=== PATIENT | male | born 1955 | race Asian ===

== ENCOUNTER 2018-07-23 19:35 | Inpatient (IN) | payer MEDICAID ==
[~2018-07-23] VITALS: Ht 165.1 cm; Wt 67.1 kg
[~2018-07-23 19:35] MED LIST: HEPARIN SODIUM,PORCINE/NS/PF 1,000 UNITS/500 ML BAG IV ONE; LR 1,000 ML IV.SOLN IV ONE; MIDAZOLAM HCL 5 MG/5 ML VIAL IVP ONE; NS 1000 ML IV.SOLN IV ONE; NS IRRIG SOLN 1000 ML IR ONE; PROPOFOL 200MG/ 20ML VIAL (DIPRIVAN) IV ONE; THROMBIN (BOVINE) 5000 UNITS/ VIAL TP ONE; VANCOMYCIN HCL 1000 MG/VIAL IV ONE
[2018-07-23 19:44] VITALS: BP_SYST 148
--- NOTE | 2018-07-23 20:01 | NUR ---
Patient to ER bed 01 to gown for evaluation. Side rails up. Report given to KASSY LOYD.
--- NOTE | 2018-07-23 20:35 | NUR ---
Patient is complaining of wound on L foot for 5 days. Patient went to primary doctor yesterday, abhijit. Primary doctor also prescribed tylenol for the pain. Patient says that pain is 9/10 walking and sitting. NKDA. Medical history of diabetes and hypertension. Patient also says that he has some shortness of breath. Patient denies, fever, diarrhea, vomitting. Denies smoking and drinking. No other complaints/injuries noted. Will continue to monitor.
--- NOTE | 2018-07-23 20:35 | NUR ---
Note undone in EDM - 07/24/18 at 0422 by [email or web address] Patient is complaining of diabetic ulcer on L foot for 5 days. Patient went to primary doctor yesterday, abhijit. Primary doctor also prescribed tylenol for the pain. Patient says that pain is 9/10 walking and sitting. NKDA. Medical history of diabetes and hypertension. Patient also says that he has some shortness of breath. Patient denies, fever, diarrhea, vomitting. Denies smoking and drinking. No other complaints/injuries noted. Will continue to monitor.
--- NOTE | 2018-07-23 21:02 | NUR ---
Accucheck done, results: 92.
[2018-07-23] MEDS ORDERED: NACL 0.9% 1,000 ML IV SCH (21:05)
--- NOTE | 2018-07-23 21:05 | NUR ---
ER MD Crocker at bedside for medical evaluation.
[2018-07-23] MEDS ORDERED: ONDANSETRON HCL 4 MG/2 ML VIAL IVP ONE (21:15)
[2018-07-23] MEDS ORDERED: CLINDAMYCIN 900 mg/50mL D5W 50 ML IV ONE (21:15)
[2018-07-23] MEDS ORDERED: MORPHINE 2 MG/ML INJ. SYRINGE IVP ONE (21:15)
--- NOTE | 2018-07-23 21:15 | NUR ---
Patient medicated with Morphine, zofran via IV push. Also, started on IV fluids an clindamycin per MD orders. Patient tolerated well. Will continue to monitor.
[2018-07-23 21:26] LABS: BILIRUBIN,URINE NEGATIVE (NEGATIVE); CLARITY/URINE CLEAR (CLEAR); COLOR,URINE YELLOW (YELLOW); GLUCOSE,URINE NEGATIVE (NEGATIVE); KETONES,URINE NEGATIVE (NEGATIVE); LEUKOCYTE ESTERASE ,URINE NEGATIVE (NEGATIVE); NITRITE, URINE NEGATIVE (NEGATIVE); PH,URINE 5.5 (5.0-8.0); PROTEIN URINE 1+ (NEGATIVE); UROBILINOGEN,URINE 0.2 (0.2-1.0)
[2018-07-23 21:27] LABS: BLOOD, URINE TRACE (NEGATIVE)
[2018-07-23 21:50] LABS: BASOPHILS % (AUTO) 0.3 % (0.0-2.0); EOSINOPHILS # (AUTO) 1.1 K/uL (0.0-0.4); EOSINOPHILS % (AUTO) 10.7 % (0.0-4.0); HEMATOCRIT 37.2 % (36-54); HEMOGLOBIN 11.9 g/dL (14.0-18.0); LYMPHOCYTES # (AUTO) 1.8 K/uL (1.0-5.5); LYMPHOCYTES % (AUTO) 17.1 % (20.5-51.5); MEAN CORPUSCULAR HEMOGLOBIN 26 pg (27-31); MEAN CORPUSCULAR HGB CONC 32 % (32-36); MEAN CORPUSCULAR VOLUME 82 fL (79.0-98.0); MONOCYTES # (AUTO) 0.7 K/uL (0.0-1.0); MONOCYTES % (AUTO) 6.5 % (1.7-9.3); NEUTROPHILS % (AUTO) 65.4 % (40.0-70.0); PLATELET COUNT (AUTO) 389 K/uL (130-430); RED BLOOD CELL COUNT(AUTO) 4.56 MIL/uL (4.2-6.2); RED CELL DISTRIBUTION WIDTH 11.9 % (9.0-15.0); WHITE BLOOD COUNT (AUTO) 10.6 K/uL (4.8-10.8)
[2018-07-23] MEDS ORDERED: CEPH-568 PO (21:55)
[2018-07-23] MEDS ORDERED: SIMV20TA2 PO (21:55)
[2018-07-23] MEDS ORDERED: HYDR12.55 PO (21:55)
[2018-07-23] MEDS ORDERED: GLIP10TA3 PO (21:55)
[2018-07-23] MEDS ORDERED: GLU850 PO (21:55)
[2018-07-23] MEDS ORDERED: LOSA100T3 PO (21:55)
--- NOTE | 2018-07-23 21:55 | NUR ---
Medication reconciliation completed with information provided by patient. Any prior medication reconciliation on file was reviewed and corrected.
[2018-07-23 21:56] LABS: BACTERIA,URINE RARE /HPF (None Seen); MUCUS,URINE None Seen /LPF (None Seen); WBC,URINE 0-3 /HPF (0-3); YEAST,URINE None Seen /HPF (None Seen)
[2018-07-23 22:16] LABS: CALCIUM 9.6 mg/dL (8.4-11.0); CREATININE 1.51 mg/dL (0.55-1.30); POTASSIUM 3.5 mmol/L (3.5-5.1)
[2018-07-23 22:22] LABS: ALBUMIN 3.6 g/dL (3.4-4.8); C-REACTIVE PROTEIN QUANT 0.7 mg/dL (0-0.5); TOTAL BILIRUBIN 0.3 mg/dL (0.0-1.0)
[2018-07-23 22:26] LABS: INR 0.9 (0.80-1.20); PROTHROMBIN TIME 9.1 SECS (9.5-12.5)
--- NOTE | 2018-07-23 22:30 | NUR ---
Patient resting in bed with daughter at bedside.
[2018-07-23 22:49] LABS: ERYTHROCYTE SEDIMENTATION RATE 75 MM/HR (0-15)
[2018-07-23] MEDS ORDERED: MORPHINE 2 MG/ML INJ. SYRINGE IVP PRN (23:00)
[2018-07-23] MEDS ORDERED: METOCLOPRAMIDE HCL 10 MG/2 ML VIAL IVP PRN (23:00)
[2018-07-23] MEDS ORDERED: TEMAZEPAM 15 MG CAPSULE PO PRN (23:00)
[2018-07-23] MEDS ORDERED: MORPHINE 4 MG/ML INJ. SYRINGE IVP PRN (23:00)
--- NOTE | 2018-07-23 23:10 | NUR ---
Patient will be admitted to care of Dr. Pruitt. Admitted to MED surg unit. Will go to room 110A. Belongings list completed. Summary report printed. Report will be given at bedside.
--- NOTE | 2018-07-23 23:19 | NUR ---
ADMISSION NOTE Received patient from ER via gurney. Patient admitted with diagnosis of Diabetic Foot. Patient is awake, alert, oriented X 4. Patient oriented to hospital room, call light, toileting, pain management and safety-teach back done. Patient informed that EVERT Olvera will be primary nurse and that their room number is 110A. Personal belongings checked and Belongings List documented. Call light within reach.
--- NOTE | 2018-07-23 23:19 | NUR ---
Note griselda in ED - 07/24/18 at 0440 by [email or web address] Transfer to [facility]. Licensed nurse present. IV present no signs or symptoms of infiltration. Report given to EVERT Olvera.
--- NOTE | 2018-07-23 23:19 | NUR ---
Transfer to Med surg. Licensed nurse present. IV present no signs or symptoms of infiltration. Report given to EVERT Olvera
[2018-07-23] MEDS ORDERED: VANCOMYCIN HCL 1 GM/NS PREMIX 250 ML IV ONE (23:30)
[2018-07-23 23:48] VITALS: BP_SYST 149
[2018-07-24] MEDS ORDERED: VANCOMYCIN HCL 1000 MG/VIAL IV ONE (00:22)
--- NOTE | 2018-07-24 01:00 | NUR ---
VANCOMYCIN 1 GM IVPB ADMINISTER ORDERED NO ALLERGIC REACTION NOTED .
--- NOTE | 2018-07-24 03:21 | NUR ---
PHOTO PICTURE TAKEN OF LEFT FOOT DIABETIC ULCER .
--- NOTE | 2018-07-24 03:22 | NUR ---
PHOTO PICTURE TAKEN OF RIGHT SECOND TOE DIABETIC ULCER & PUT IN MEDICAL RECORD .
--- NOTE | 2018-07-24 03:23 | NUR ---
PICTURE PHOTO TAKEN OF RIGHT MOREIRA DIABETIC ULCERS & PUT IN MEDICAL RECORD .
--- NOTE | 2018-07-24 03:46 | NUR ---
WOUND & DIETARY CONSULT HAS BEEN ORDERED D/T DM .
[2018-07-24 07:50] VITALS: BP_SYST 142
--- NOTE | 2018-07-24 07:50 | NUR ---
Initial notes: Patient on bed awake, alert and oriented. Stable. Safety measures in placed. Call light within reach. Report received at bedside.
[2018-07-24] MEDS ORDERED: VANCOMYCIN HCL 1,000 MG in NS 250 ML IV SCH (09:00)
[2018-07-24] MEDS ORDERED: PIPERACILLIN/TAZO 3.375/DEX-IS 50 ML IV SCH (10:00)
--- NOTE | 2018-07-24 10:01 | NUR ---
CONSULT CONSULT CALLED FOR: DR VICTORIA I SPOKE WITH: ROWENA REASON FOR CONSULT: DM FOOT REQUESTING CONSULT: DR. HOOKS LOADING MACHINE TOOL SETTER PHONE: [phone]
--- NOTE | 2018-07-24 10:31 | NUR ---
2DECHO: 2DECH at bedside.
[2018-07-24] MEDS ORDERED: ACETAMINOPHEN 325 MG TABLET PO PRN (10:45)
--- NOTE | 2018-07-24 10:46 | NUR ---
CONSULT CONSULT CALLED FOR: DR. MONSON I SPOKE WITH: KELLY REASON FOR CONSULT: DM FOOT REQUESTING CONSULT: DR. HOOKS NUCLEAR SCIENTIST PHONE: [phone]
--- NOTE | 2018-07-24 11:00 | NUR ---
Sara rounds: Seen by Dr. Grimm with new orders.
--- NOTE | 2018-07-24 11:43 | NUR ---
rounds: patient on bed resting. no distress noted.
[2018-07-24] MEDS: CEFEPIME 1 GM in D5W 50 ML IV SCH (11:54)
--- NOTE | 2018-07-24 11:56 | NUR ---
Dietitian Recommendations *Recommend [facility] diet w/ Glucerna BID and Donald BID. Oral supplement will provide: 600 kcal and 25 gm protein daily. *Encourage pt to increase oral intake. Please see Nutritional Assessment for details. BLANCA, RD
[2018-07-24 12:41] VITALS: BP_SYST 145
--- NOTE | 2018-07-24 14:00 | NUR ---
Sara rounds: Seen by Dr. Wahl and talk to the patient. He explained the debridement procedure on L foot and patient agreed to undergo procedure tomorrow.
[2018-07-24] MEDS ORDERED: ASPIRIN 81 MG TAB.CHEW PO ONE (14:15)
[2018-07-24] MEDS ORDERED: CILOSTAZOL 50 MG TABLET (PLETAL) PO ONE (14:15)
--- NOTE | 2018-07-24 15:47 | NUR ---
rounds: patient resting on bed. no distress noted.
[2018-07-24 16:45] VITALS: BP_SYST 140
--- NOTE | 2018-07-24 18:40 | NUR ---
closing notes: Patient resting on bed. Stable. Needs attended. Family at bedside. Aware he will be NPO at midnight for the surgery. Call light within reach. Safety measures in placed. Report will be given to night court magistrate.
--- NOTE | 2018-07-24 19:15 | NUR ---
CHANGE OF SHIFT: pt. awake, alert, oriented. pt. family at bedside. no complaints of pain. instructed to call for help and use of call light, communication board updated. IV lock on left antecubital.
--- NOTE | 2018-07-24 19:45 | NUR ---
PAGED I PAGED [phone] @ 1944 I SPOKE WITH SANDRA AZUL ROLON NEON SIGN MECHANIC AT THIS MOMENT DR. HEAD CALLED BACK @ 1946 LOST COMMUNICATION WITH HIM SO HE CALLED BACK AGAIN @ 1953
[2018-07-24 20:00] VITALS: BP_SYST 148
--- NOTE | 2018-07-24 20:05 | NUR ---
NOTES: paged Dr. Pruitt exchange, Dr. Sebastian senior controls engineer, informed him about the low BS this afternoon, will be NPO after midnight for the debridement, order IVF of D5 1/2 NS @ 7o cc./hr.
[2018-07-24] MEDS: CILOSTAZOL 50 MG TABLET (PLETAL) PO SCH (21:00)
[2018-07-24] MEDS: SIMVASTATIN 20 MG TABLET PO SCH (21:35)
[2018-07-24] MEDS: D5/0.45 NS 1,000 ML IV SCH (21:37)
--- NOTE | 2018-07-24 21:55 | NUR ---
NOTES; awakened for meds. IVF started with D 5 1/2 NS @ 70 cc/hr via left antecubital. repositioned self for comfort. reminded [pt. to be NPO after midnight for schedule debridement of left foot toe.
[2018-07-25] VITALS: BP_SYST 120
[2018-07-25] MEDS: VANCOMYCIN HCL 1,000 MG in NS 250 ML IV SCH (00:49)
--- NOTE | 2018-07-25 01:30 | NUR ---
NOTES; assisted by nurse Clayton to the restroom. reminded to be NPO.
--- NOTE | 2018-07-25 03:21 | NUR ---
NOTES: pt. been sleeping. condition unchanged. IVF infusing well.
--- NOTE | 2018-07-25 06:00 | NUR ---
NOTES: pt. still sleeping. no complaints.
--- NOTE | 2018-07-25 06:50 | NUR ---
CLOSING NOTES; BS checked 98, IV continuous, kept NPO. pre-op checklist initiated. no complaints noted. call light within reach. for further care and assistance.
--- NOTE | 2018-07-25 07:20 | NUR ---
Initial notes: Patient on bed awake, alert and oriented. Stable. I.V. access patent. Remains NPO for surgery. Safety measures in placed. call light within reach. Report received at bedside.
--- NOTE | 2018-07-25 07:25 | NUR ---
endorsed pt. to incoming shift with nurse Patel
--- NOTE | 2018-07-25 08:53 | NUR ---
Bone Scan: Patient sent to [facility] for bone scan.
[2018-07-25] MEDS: CILOSTAZOL 50 MG TABLET (PLETAL) PO SCH ×2 (09:00→20:25)
[2018-07-25] MEDS: ASPIRIN 81 MG TAB.CHEW PO SCH (09:00)
[2018-07-25] MEDS: LOSARTAN POTASSIUM 50 MG TABLET (COZAAR) PO SCH (10:07)
--- NOTE | 2018-07-25 10:09 | NUR ---
rounds: patient back in his room. resting. remains npo except for small sip for BP meds given. no distress noted.
[2018-07-25] MEDS: CEFEPIME 1 GM in D5W 50 ML IV SCH (11:35)
--- NOTE | 2018-07-25 11:39 | NUR ---
MHallie rounds: Dr. Grimm seen the patient. Mentioned of assisted antibiotic and possible need of PICC line.
[2018-07-25 12:46] VITALS: BP_SYST 148
--- NOTE | 2018-07-25 14:09 | NUR ---
transfer to O.R. for debridement on L foot.
[2018-07-25] MEDS ORDERED: ONDANSETRON HCL 4 MG/2 ML VIAL IVP PRN (15:00)
[2018-07-25] MEDS ORDERED: fentaNYL CITRATE/PF 100 MCG/2 ML AMP IVP PRN ×2 (15:00)
--- NOTE | 2018-07-25 15:35 | NUR ---
transfer back from PACU: patient back in his room. Stable. Dressing on L foot dry, clean and intact.
[2018-07-25 15:40] VITALS: BP_SYST 148
--- NOTE | 2018-07-25 16:09 | NUR ---
Conversation with Dr. Wahl: Informed about the order for CTA ABD lower ext runoff. Per Scot BUN and Creatinine are high. Dr. Wahl said to cancel it. Also, Diet as tolerated.
--- NOTE | 2018-07-25 16:15 | NUR ---
WOUND EVALUATION: Late note for 161 secondary to patient care. Wound Consult received from Dr. Pruitt. Thank you, Dr. Pruitt, for the consult. Patient received in a Darion Bed with an IsoFlex LEDA mattress, awake, alert, and oriented. Patient is able to turn in bed independently. Brock Score is a 19. Past Medical History: Diabetes Mellitus, Hypertension, Appendectomy. Patient was admitted with erythematous and edematous left foot. Recent Labs: WBC 10.6, RBC 4.56, hemoglobin 11.9, hematocrit 37.2, ESR 75, sodium 129, chloride 93, BUN 31, creatinine 1.51, GFR 50, POC glucose 113, alkaline phosphatase 137, Serum total protein 8.5, PT 9.1. Microbiology: MRSA screen results in progress. Blood culture results 2 in progress. Intrinsic factors that delay wound healing: Diabetes mellitus. Extrinsic factors that delay wound healing: Decreased mobility. Wound Assessment: Patient is status post excisional debridement (to the muscle) of left fifth lateral toe ulcer today by Dr. Wahl. Will assess foot on next visit pending orders. Recommend: Reinforce surgical dressing when necessary. Monitor surgical site for signs of infection or hemorrhaging. Nursing to follow-up with Dr. Wahl for wound care orders. Also recommend: Encourage and assist patient as needed with repositioning every 2 hours with pillow support and off-load pressure areas with pillows for pressure re-distribution. Offload, elevate and float bilateral heels with pillows. Perform skin care and monitor skin integrity Q shift.
--- NOTE | 2018-07-25 17:26 | NUR ---
rounds: patient resting on bed. no distress noted. family at bedside.
[2018-07-25] MEDS: D5/0.45 NS 1,000 ML IV SCH (18:02)
[2018-07-25 19:00] VITALS: BP_SYST 155
--- NOTE | 2018-07-25 19:15 | NUR ---
changer of shift.pt.presents stable status.pt.is s/p I&D;lt.foot.skin hue;pale;pink,pt.senses tactile stimulation.pt.capable to move toes.no pain@this time per.the pt.requested food.i will review the md's order's re;diet status.family@bedside;pt.to submit katie mra:in am;family attending to questionnaire;mra.iv fluids infusing.call light@pt.'s bedside.
--- NOTE | 2018-07-25 19:35 | NUR ---
Closing notes: Patient on bed resting. Stable. Needs attended. Dressing on foot dry and intact. No active bleeding. Safety measures in placed. Call light within reach. Report given to production shift supervisor, Tru LOYD.
[2018-07-25 20:00] VITALS: BP_SYST 155
--- NOTE | 2018-07-25 20:10 | NUR ---
pt.assessed.v/s assessed;values w/in normal limits.pt.presents s/p lt.foot diabetic ulcer;wound;I&D per . diet status changed to c/cho;i have proved the p.w/ food items.i have assessed the lt.foot;skin hue;pale;pink, tactile stimulation felt per the pt.pt.capable to move toes.i inquired if the pt.presents pain/numbness to the l lt.foot;pt.has stated no.pt.present general status stable.respiratory status stable@room air.pt.is to submit to mra;lt.carotid in the am;pt's dtr reviewing the questionnaire.iv fluids infusing via peripheral line;location; lt.antecubital;iv site;intact;absent inflammation/infiltration.i have provide the pt.w/the room telephone and provide the demonstration of the utilizing of the telephone.pt.returned the demonstration.call light/telephone placed w/in the pt's reach.
[2018-07-25] MEDS: SIMVASTATIN 20 MG TABLET PO SCH (20:25)
--- NOTE | 2018-07-25 20:30 | NUR ---
i have administered the 2100p medications.i have assessed the blood glucose;value;299mg/dl.i have administered regular insulin:6-units.the pt's dtr has completed the mra-questionnaire:i have witnessed the pt's signing.no additional requests@ this hour.
[2018-07-25] MEDS: INSULIN REGULAR, HUMAN 100 UNITS/ML, 10 ML VIAL (novoLIN R) SUBCUT PRN (20:32)
--- NOTE | 2018-07-25 21:10 | NUR ---
pt's dtr had conveyed to me that the pt.had presented 2 days constipation.no medications had been ordered i apprised the pt's drSolo that ;attending md is to be paged and apprise of the pt's status.
[2018-07-25] MEDS: MINERAL OIL 30 ML UDC PO SCH (21:33)
--- NOTE | 2018-07-25 21:35 | NUR ---
returned the page.i apprised of the pt's status;constipation. ordered:mineral oil;3oml po q-8hrs.i have administered the initial dose.the family had left the bedside.i inquired if the pt.presents pain pt.stated no. pt.did requests additional crackers i have provided the crackers;saltines.general status stable.respiratory status stable. iv fluids infusing.call light/telephone w/in the pt's reach.
--- NOTE | 2018-07-25 22:10 | NUR ---
pt.assessed.pt.assisted to the restroom.i have assisted the pt's return to the bed.no additional requests.@ this hour.general status stable.respiratory status stable.pt.capable to reposition self.call light/telephone w/in the pt's reach.
--- NOTE | 2018-07-26 00:10 | NUR ---
pt.assessed.v/s assessed;values w/in normal limits.i have inquired if the pt.presents pain.pt.stated no.i have assessed the lt.foot;skin hue;pale;pink.pt.sensed the tactile stimulation.pt.capable to move toes.pt.states no pain,numbness to the lt.foot. dsg ;dry/intact;no drainage. placed a call to the unit.cece has requested for the pt's diet status to be converted npo: to confer w/ the pt.in the am.
[2018-07-26 00:25] VITALS: BP_SYST 123
[2018-07-26] MEDS: VANCOMYCIN HCL 1,000 MG in NS 250 ML IV SCH ×2 (01:00→01:19)
[2018-07-26] MEDS: D5/0.45 NS 1,000 ML IV SCH ×2 (01:06→14:56)
--- NOTE | 2018-07-26 01:30 | NUR ---
pt.assisted to the restroom.i have assisted the pt's return to bed;gait unsteady walker provided . no c/o pain/nausea.i have administered the vancomycin;abx;ivpb 0100a dose.iv fluids
--- NOTE | 2018-07-26 02:10 | NUR ---
pt.assessed.pt.presents quiescent affect;calm,somnolent.i have assessed the lt.foot;skin hue;pale/pink.pt.sensed the tactile stimulation.pt.capable to move toes;pt.states no pain.iv fluids infusing.pt.capable, to reposition self. call light/telephone placed w/in the pt's reach.
--- NOTE | 2018-07-26 04:10 | NUR ---
pt.assessed.pt.presents quiescent affect;calm.somnolent.general status stable.respiratory status stable. iv fluids infusing.i have assessed the lt.foot.skin hue;pale;pink.tactile stimulation;warm to touch.pt.capable to move toes.no co pain/nausea.pt,.remains npo;reiterated to the pt.iv fluids infusing.pt.capable to reposition self. call light/telephone w/in the pt's reach.
--- NOTE | 2018-07-26 06:10 | NUR ---
pt.assessed.pt.presents quiescent affect;calm,somnolent.no c/o pain/nausea.i have assessed the blood glucose;100mg/dl. in have assessed the lt.foot;skin hue;pink;pale.pt.senses the tactile stimulation.pt.capable to move toes.iv fluids infusing.general status stable.respiratory status stable.call light/telephone w/in the pt's reach.
[2018-07-26 06:59] LABS: ALBUMIN 2.9 g/dL (3.4-4.8); CREATININE 1.28 mg/dL (0.55-1.30); TOTAL BILIRUBIN 0.5 mg/dL (0.0-1.0)
[2018-07-26 08:00] VITALS: BP_SYST 159
--- NOTE | 2018-07-26 08:00 | NUR ---
Opening Note received report from promos executive producer RN, pt resting in bed, A&Ox4, respirations even and unlabored on room air, pt denies any pain, no acute distress noted, IV site clean, dry, intact, and infusing well, surgical dressing to left foot clean, dry, and intact, pt educated on use of call light and asked to call for assistance, pt verbalized understanding, call light in reach, bed in low position, bed alarm on, fall and aspiration precautions in place.
--- NOTE | 2018-07-26 08:50 | NUR ---
MD Rounds Dr. Wahl at bedside examining pt, per MD hold all PO meds at this time, per MD no wound care to be provided at this time, dressing clean, dry, and intact, fall and aspiration precautions in place.
[2018-07-26] MEDS ORDERED: IOHEXOL 350 mgI/mL, 150 ML INFUS..BTL IV ONE (09:10)
--- NOTE | 2018-07-26 09:25 | NUR ---
to CT pt taken to CT via wheelchair, no acute distress noted.
--- NOTE | 2018-07-26 09:56 | NUR ---
Back From CT pt back from CT, pt resting in bed, no acute distress noted, fall and aspiration precautions in place.
[2018-07-26] MEDS: MINERAL OIL 30 ML UDC PO SCH (10:09)
[2018-07-26] MEDS: CILOSTAZOL 50 MG TABLET (PLETAL) PO SCH ×2 (10:09→20:14)
[2018-07-26] MEDS: ASPIRIN 81 MG TAB.CHEW PO SCH (10:10)
[2018-07-26] MEDS: LOSARTAN POTASSIUM 50 MG TABLET (COZAAR) PO SCH (10:10)
--- NOTE | 2018-07-26 10:13 | NUR ---
Medication per Dr. Sonal up to give morning medications at this time, pt educated on use and side effects of medications, pt verbalized understanding, tolerated medication administration well, no acute distress noted, fall and aspiration precautions in place.
[2018-07-26] MEDS: INSULIN REGULAR, HUMAN 100 UNITS/ML, 10 ML VIAL (novoLIN R) SUBCUT PRN ×2 (11:29→20:18)
--- NOTE | 2018-07-26 11:32 | NUR ---
Medication pt educated on medication use and side effects, pt verbalized understanding, pt tolerated medication administration well, no acute distress noted, fall and aspiration precautions in place.
[2018-07-26 12:14] VITALS: BP_SYST 156
--- NOTE | 2018-07-26 12:17 | NUR ---
D/C PLANNING Patient possibly to d/c this home this weekend with IV abx, and home health per Dr. Pruitt. CM called cm from [employer] ph: [phone] and requested a list of contracted home health agencies as well as contracted DME companies. Trsesa stated that she would fax a list of contracted home health agencies but that the [facility] deals with the DME. Tressa gave CM the contact number for [facility] ([facility]) as: [phone]. CM attempted to call this number, but it is not in service. Addendum: 07/26/18 at 1433 by Gabriela Hutchison RN Follow up on d/c planning CM rec'd contracted list from [employer]ressa at , but it was for SNF instead of Home health and was for the wrong patient. CM called [employer] back and left a voicemail asking her to fax a list of contracted home health companied to f: [phone]. Also stated that the phone number given earlier for [facility] was disconnected and asked if she could provide an updated number. Left CM contact info: [phone]. Addendum: 07/26/18 at 1524 by Gabriela Hutchison RN follow up to d/c planning CM rec'd updated fax from [employer]ressa at with list of contracted home health and SNFs. Pending d/c orders and abx order. Updated phone number for [facility]: [phone], they are responsible for the DME. CM will attempt to contact and obtain a list of contracted DME companies for weekend d/c planning.
--- NOTE | 2018-07-26 12:30 | NUR ---
Bathroom pt ambulated to bathroom, steady gait noted, minimal assistance required, pt ambulated back to bed, call light in reach, bed in low position, bed alarm on, fall and aspiration precautions in place.
[2018-07-26] MEDS: CEFEPIME 1 GM in D5W 50 ML IV SCH (12:48)
--- NOTE | 2018-07-26 12:49 | NUR ---
Medication pt educated on medication use and side effects, pt verbalized understanding, tolerating medication administration well, no redness or swelling noted at IV site, no acute distress noted, fall and aspiration precautions in place.
--- NOTE | 2018-07-26 14:59 | NUR ---
IV fluid pt educated on use and side effects of IV fluid administration, pt verbalized understanding, new bag of IV fluid hung at this time, pt tolerating well, no redness or swelling noted at IV site, no acute distress noted, fall and aspiration precautions in place.
[2018-07-26 16:20] VITALS: BP_SYST 158
--- NOTE | 2018-07-26 17:18 | NUR ---
Blood glucose blood glucose 142, no insulin indicated per sliding scale, pt resting in bed, no acute distress noted, fall and aspiration precautions in place.
--- NOTE | 2018-07-26 17:50 | NUR ---
Medication pt educated on medication use and side effects, pt verbalized understanding, tolerated medication administration well, no acute distress noted, pt spouse and daughter updated on pt POC, pt spouse and daughter verbalized understanding, fall and aspiration precautions in place.
--- NOTE | 2018-07-26 19:10 | NUR ---
Closing Note/Refuse bed alarm pt resting in bed, A&Ox4, respirations even and unlabored on room air, pt denies any pain, no acute distress noted, IV site clean, dry, intact, and infusing well, surgical dressing to left foot clean, dry, and intact, family at bedside, pt educated on use of call light and asked to call for assistance, pt verbalized understanding, call light in reach, pt educated on use of bed alarm for pt safety, pt refusing bed alarm at this time, bed in low position, fall and aspiration precautions in place, care endorsed to Rosalinda LOYD.
--- NOTE | 2018-07-26 19:10 | NUR ---
OPENING NOTE RECEIVED PT ENDORSEMENT REPORT FROM DAY SHIFT NURSE FIDENCIO AT BEDSIDE. PT IS AOX4, PT RESTING COMFORTABLY IN BED WITH EYES OPEN, FAMILY AT BEDSIDE. PT'S CHEST RISE EVEN AND UNLABORED. NO COMPLAINTS OF PAIN AT THIS TIME. NO DISTRESS NOTED. NO RESPIRATORY DISTRESS NOTED. PT IS ON RA. PT'S IV ON LEFT AC 22G, DRY, CLEAN AND INTACT. PT'S SURGICAL DRESSING ON LEFT FOOT, CLEAN AND INTACT. PT ORIENTED TO HOSPITAL ROOM, PT INSTRUCTED HOW TO USE CALL LIGHT AND ROOM PHONE, PT VERBALIZED UNDERSTANDING. PT AWARE TO CALL FOR ASSISTANCE WHEN AMBULATING. PT INSTRUCTED ON PT SAFETY, PT VERBALIZED UNDERSTANDING, PT CONTINUES TO REFUSE BED ALARM AT THIS TIME. SAFETY MEASURES IN PLACE, CALL LIGHT AND ROOM PHONE WITHIN REACH, BED BRAKES LOCKED, BED RAILS UP X2, BED IN LOWEST POSITION, BEDSIDE TABLE WITHIN REACH. NO NEEDS AT THIS TIME, WILL CONTINUE TO MONITOR PT AND CONTINUE POC.
[2018-07-26 20:12] VITALS: BP_SYST 140
[2018-07-26] MEDS: SIMVASTATIN 20 MG TABLET PO SCH (20:14)
--- NOTE | 2018-07-26 20:16 | NUR ---
RN ROUNDS PT RESTING COMFORTABLY IN BED WITH EYES OPEN, FAMILY AT BEDSIDE. PTS' CHEST RISE EVEN AND UNLABORED. NO COMPLAINTS OF PAIN AT THIS TIME. NO DISTRESS NOTED. NO RESPIRATORY DISTRESS NOTED. IVF INFUSING WELL. IV DRY, CLEAN AND INTACT. VITAL SIGNS WNL. SCHEDULED MEDICATIONS ADMINISTERED ORDERED. BS 192, 2 UN OF NOVOLIN R ADMINISTERED PER SLIDING SCALE PROTOCOL. NO OTHER NEEDS AT THIS TIME. PT REFUSES BED ALARM, PT AWARE OF SAFETY PRECAUTIONS. SAFETY MEASURES IN PLACE, CALL LIGHT AND ROOM PHONE WITHIN REACH, BED BRAKES LOCKED, BED RAILS UP X2, BED IN LOWEST POSITION, BEDSIDE TABLE WITHIN REACH. NO NEEDS AT THIS TIME, WILL CONTINUE TO MONITOR PT AND CONTINUE POC.
--- NOTE | 2018-07-26 22:30 | NUR ---
RN ROUNDS PT RESTING COMFORTABLY IN BED WITH EYES OPEN, FAMILY AT BEDSIDE. PT'S CHEST RISE EVEN AND UNLABORED. NO COMPLAINTS OF PAIN AT THIS TIME. NO DISTRESS NOTED. NO RESPIRATORY DISTRESS NOTED. NO NEEDS AT THIS TIME. SAFETY MEASURES IN PLACE. WILL CONTINUE TO MONITOR PT AND CONTINUE POC.
[2018-07-26 23:40] VITALS: BP_SYST 145
--- NOTE | 2018-07-27 | NUR ---
RN ROUNDS PT RESTING COMFORTABLY IN BED WITH EYES CLOSED. PT'S CHEST RISE EVEN AND UNLABORED. NO S/S OF PAIN NOTED. NO DISTRESS NOTED. NO RESPIRATORY DISTRESS NOTED. IVF INFUSING WELL. PT IS NPO AT THIS TIME. SAFETY MEASURES IN PLACE, CALL LIGHT AND ROOM PHONE WITHIN REACH, BED BRAKES LOCKED, BED RAILS UP X2, BED IN LOWEST POSITION, BEDSIDE TABLE WITHIN REACH. WILL CONTINUE TO MONITOR PT AND CONTINUE POC.
--- NOTE | 2018-07-27 02:46 | NUR ---
RN ROUNDS PT RESTING IN BED WITH EYES CLOSED. CHEST RISE EVEN AND UNLABORED. NO S/S OF DISTRESS. NO S/S OF PAIN. NO NEEDS AT THIS TIME. IVF INFUSING WELL. WILL CONTINUE TO MONITOR PT. SAFETY MEASURES IN PLACE.
[2018-07-27 03:02] VITALS: BP_SYST 148
--- NOTE | 2018-07-27 03:50 | NUR ---
VANCOMYCIN SPOKE TO DOMINIQUE FROM [facility] TO VERIFY TO GIVE VANCOMYCIN ORDERED, VANCOMYCIN TROUGH 12.2 THIS AM. ACCORDING TO DOMINIQUE TROUGH WITHIN RANGE AND CONTINUE SCHEDULED VANCOMYCIN ORDERED.
[2018-07-27] MEDS: VANCOMYCIN HCL 1,000 MG in NS 250 ML IV SCH (04:08)
--- NOTE | 2018-07-27 04:48 | NUR ---
RN ROUNDS PT RESTING COMFORTABLY IN BED WITH EYES CLOSED. PTS' CHEST RISE EVEN AND UNLABORED. IVF INFUSING WELL. SAFETY MEASURES IN PLACE. WILL CONTINUE TO MONITOR PT AND CONTINUE POC.
[2018-07-27] MEDS: D5/0.45 NS 1,000 ML IV SCH ×2 (06:07→23:30)
--- NOTE | 2018-07-27 06:31 | NUR ---
RN ROUNDS PT RESTING IN BED WITH EYES CLOSED. CHEST RISE EVEN AND UNLABORED. NO DISTRESS NOTED. NO SOB NOTED. NO S/S OF PAIN NOTED./ PT EASILY AWAKEN, PT DENIED PAIN AT THIS TIME. IVF INFUSING WELL. SCHEDULED FLUIDS ADMINISTERED SCHEDULED. PT TOLERATED WELL. BS 136, NO INSULIN COVERAGE NEEDED AT THIS TIME PER PROTOCOL. VITAL SIGNS STABLE THIS AM. CHG BATH COMPLETE. NO OTHER NEEDS AT THIS TIME. SAFETY MEASURES IN PLACE. WILL CONTINUE TO MONITOR PT.
[2018-07-27 06:42] VITALS: BP_SYST 151
--- NOTE | 2018-07-27 07:10 | NUR ---
INITIAL NOTE RECEIVED REPORT AND PATIENT FROM QUALITY MANAGEMENT COORDINATOR NURSE. PATIENT REMAINS AWAKE, ALERT, VERBALLY RESPONSIVE. DENIES ANY PAIN AT THIS TIME. VS STABLE. PATIENT REMAINS NPO DUE TO SURGERY. PATIENT IS CONTINENT BOWEL AND BLADDER, GOES TO THE RESTROOM, AMBULATORY WITH WALKER. REMIND PATIENT TO ASK FOR ASSISTANCE. PATIENT REFUSE SCD'S, EXPLAINED PURPOSE AND REASON. CALL LIGHT WITHIN REACH, WILL CONTINUE TO MONITOR.
--- NOTE | 2018-07-27 07:28 | NUR ---
CLOSING NOTE ENDORSED PT REPORT TO DAY SHIFT NURSE LEANDRA AT BEDSIDE. PT IS AOX4, PT RESTING COMFORTABLY IN BED WITH EYES OPEN. PTS' CHEST RISE EVEN AND UNLABORED. NO COMPLAINTS OF PAIN AT THIS TIME. NO DISTRESS NOTED. NO RESPIRATORY DISTRESS NOTED. PT IS ON RA. IV INFUSING WELL. ALL NEEDS MET THROUGHOUT SHIFT. ALL SCHEDULED MEDICATIONS ADMINISTERED ORDERED, PT TOLERATED WELL. INFORMED NURSE PT REFUSING BED ALARM, SAFETY EDUCATION PROVIDED TO PT, PT CONTINUES TO REFUSE BED ALARM. SAFETY MEASURES IN PLACE, CALL LIGHT AND ROOM PHONE WITHIN REACH, BED BRAKES LOCKED, BED RAILS UP X2, BED IN LOWEST POSITION, BEDSIDE TABLE WITHIN REACH. NO NEEDS AT THIS TIME. PT AWAITING TRANSFER TO OR.
[2018-07-27 08:00] VITALS: BP_SYST 140
--- NOTE | 2018-07-27 08:20 | NUR ---
PICKED UP FOR SURGERY PATIENT IS PICKED UP FOR SURGERY VIA BED BY RN WITH THE ASSISTANCE OF TECH. PATIENT REMAINS AWAKE, ALERT. VS STABLE, DENIES ANY PAIN AT THIS TIME. IV FLUIDS AND ANTIBIOTIC INFUSING VIA PUMP. REPORT GIVEN TO EVERT HAYNES
[2018-07-27] MEDS ORDERED: fentaNYL CITRATE/PF 100 MCG/2 ML AMP IVP PRN ×2 (09:00)
[2018-07-27] MEDS ORDERED: CILOSTAZOL 50 MG TABLET (PLETAL) PO SCH (09:00)
[2018-07-27] MEDS ORDERED: DIPHENHYDRAMINE INJ 50 MG/ML VIAL IVP PRN (09:00)
[2018-07-27] MEDS ORDERED: FENT2mCg/mL-ROPIVA0.2%/NS EPID 100 ML EP SCH (09:00)
[2018-07-27] MEDS ORDERED: ASPIRIN 81 MG TAB.CHEW PO ONE (09:00)
[2018-07-27] MEDS ORDERED: ONDANSETRON HCL 4 MG/2 ML VIAL IVP PRN ×2 (09:00)
[2018-07-27] MEDS: MINERAL OIL 30 ML UDC PO SCH (09:00)
[2018-07-27] MEDS ORDERED: NALBUPHINE HCL 10 MG/ML AMP IVP PRN (09:00)
[2018-07-27] MEDS ORDERED: NALOXONE HCL 0.4 MG/ML AMP (NARCAN) IVP PRN (09:00)
--- NOTE | 2018-07-27 12:25 | NUR ---
TRANSPORTED PATIENT BACK TO MED/SURG UNIT ASSISTED [place] LABOR UTILIZATION SUPERINTENDENT IN BRINGING THE PATIENT BACK TO THE FLOOR, REPORT RECEIVED. DEPUTY SHERIFF GENERALIST/BAILIFF INFUSING VIA PUMP AT 10ML/HR. SURGICAL INCISION ON THE LEFT FEMORAL AND LEFT INNER THIGH, COVERED WITH DRY DRESSING. PATIENT DENIES ANY PAIN AT THIS TIME. REMIND PATIENT ON HOW TO USE THE IS WITH RETURN DEMO.
[2018-07-27] MEDS: CILOSTAZOL 50 MG TABLET (PLETAL) PO SCH ×2 (12:44→21:17)
[2018-07-27] MEDS: ASPIRIN 81 MG TAB.CHEW PO SCH (12:44)
[2018-07-27] MEDS: CEFEPIME 1 GM in D5W 50 ML IV SCH (12:46)
[2018-07-27] MEDS: LOSARTAN POTASSIUM 50 MG TABLET (COZAAR) PO SCH (12:46)
--- NOTE | 2018-07-27 12:47 | NUR ---
Transfer of care: Report received from EVERT Ortiz.
[2018-07-27 12:48] VITALS: BP_SYST 110
--- NOTE | 2018-07-27 13:02 | NUR ---
Initial notes: Patient awake, alert and oriented. Stable. I.V. access patent. Came with BACK ORDER CLERK from OR. Surgical site at the L femoral dry, clean and intact. No bleeding. L food dressing clean, dry and intact. Safety measures in placed. Call light within reach.
--- NOTE | 2018-07-27 14:06 | NUR ---
rounds: patient resting on bed. No distress noted.
[2018-07-27] MEDS: ONDANSETRON HCL 4 MG/2 ML VIAL IVP PRN (16:14)
--- NOTE | 2018-07-27 16:17 | NUR ---
Vomit: Patient throw up of undigested food. Zofran given thru ivp. Cleaned and changed pt's gown and blanket.
--- NOTE | 2018-07-27 16:42 | NUR ---
Fever: Patient's temp 103.3. Applied ice pack. Tylenol given oral. Jos Zhang. Continue to monitor. Addendum: 07/27/18 at 1706 by Ebony Leone RN Dr. Zhang called back and informed him of the fever. No new order.
--- NOTE | 2018-07-27 17:20 | NUR ---
Nutrition F/U Admitting Diagnosis Diabetic foot Reviewed Pertinent Medical/Surgical Hx Medical Record Patient Medical History Comment: PMH: H/O DM, H/O HTN per MD notes. Pt found w/: Diabetic foot Infection LLE, possible Osteomyelitis per MD notes. Pt is s/p L femoral to popliteal bypass graft (bovine) and debridement of R foot 07/27/18. Subjective Information Pt seen resting in bed at time of RD visit. Pt was eating lunch. Pt reported no c/o chewing/swallowing. Pt reported BM last night. Pt had no nutrition-related questions/concerns. Pt is likely meeting optimal nutritional needs. Current Diet Order/Nutrition Support CCHO x1 day Patient/Significant Other Able To Verbalize Education Provided Indicated Pertinent Medications vancomycin, SSI, zofran Pertinent Labs Na 138 WNL (improved), POC BG 149 H, BUN 18 WNL (improved), CRE 1.28 WNL (improved), Hgb 11.9L, ALP 92 WNL (improved), ALB 2.9 L Height (Feet) 5 feet Height (Inches) 5.00 inches Weight (Pounds) 148 pounds (07/24/18) Weight (Calculated Kilograms) 67.516343 kilograms Patient Weight 67.132 kg Body Mass Index 24.63 kg/m2 %IBW 109 [place]/Adjusted Body Weight 136 lb, 62 kg Recent Weight Change No - per pt Weight Status Appropriate Gastrointestinal Symptoms None Last BM 07/27/18 Food Allergies No - per pt Usual Diet At Home regular diet, skips meals and medications per pt Skin Integrity Comment: Brock scale: 18; per [employer] note 07/25/18: Patient is status post excisional debridement (to the muscle) of left fifth lateral toe ulcer today by Dr. Wahl. Will assess foot on next visit pending orders. Current % PO 84% average x4 meals -- good Estimated Energy Expenditure (kcals/day) 4316-8153 kcal/day (30-35 kcal/kg CBW for wound healing) Estimated Protein Required (g/day) 80-101 gm/day (1.2-1.5 gm/kg CBW for wound healing) Estimated Fluid Required (l/day) 2-2.3 L/day (30-35 ml/kg CBW for wound healing) Problem/Etiology/Signs/Symptoms Increased nutritional needs related to metabolic demands as evidenced by wounds. *ongoing Inconsistent CHO intake related to behavioral factors as evidenced by non-compliance and pt's report of skipping meals/medication and fluctuating BG levels. *ongoing Expected Outcomes/Goals Monitor pt appetite and PO intake w/ goal of pt meeting at least 75% of estimated nutritional needs, labs trending WNL, normal GI function, skin integrity/wt maintenance. Dietitian Recommendations * Recommend CCHO diet w/ Glucerna BID and Donald BID (oral supplements will provide an additional 600 kcal/day and 25 gm protein/day) Follow Up Moderate Risk: F/U in 3-5 days
--- NOTE | 2018-07-27 17:26 | NUR ---
Dietitian Recommendations * Recommend [facility] diet w/ Glucerna BID and Donald BID (oral supplements will provide an additional 600 kcal/day and 25 gm protein/day) LP, RD Please refer to Nutrition F/U for details.
--- NOTE | 2018-07-27 18:37 | NUR ---
Closing notes: Patient on bed resting. Stable. Needs attended. On epidural Naropin with Fentanyl @ 10 ml/hr. at bedside. Safety measures in placed. Call light within reach. Report will be given to skilled laborer.
[2018-07-27 19:55] VITALS: BP_SYST 102
--- NOTE | 2018-07-27 19:55 | NUR ---
INITIAL NOTES: BEDSIDE REPORT RECEIVED FROM EVERT SPAULDING AT 1920. PATIENT IN BED WITH EYES CLOSE AWAKENS WHEN CALLED HIS NAME. IVF AT 70ML/HR AT LEFT AC.. FENTANYL /ROPOVICAINE VIA EPIDURAL INFUSING AT 10ML/HR. SITE AT LUMBAR AREA WITH DRY DRESSING AND INTACT. THREE DRESSINGS TO LEFT UPPER AND LOWER EXTREMITY INTACT,UPPER AND LOWER DRESSING DRY AND INTACT, MIDDLE DRESSING WITH LIGHT BLOOD STAIN. PEDAL PULSES PRESENT. MOVES TOES AND FOOT FREELY ON COMMAND SKIN WARM TO TOUCH.. RIGHT LEG MOVES FREELY /WITH PULSES. PATIENT ON ROOM AIR. TEMP 100.5 HR 105.MIN. DENIES POST OP PAIN. SINUS TACHYCARDIA. AT BEDSIDE. WILL MONITOR CLOSELY.
--- NOTE | 2018-07-27 20:05 | NUR ---
COOLING MEASURES INITIATED.
--- NOTE | 2018-07-27 20:35 | NUR ---
BED BATH DONE BY MARY RED. KEPT DRY AND COMFORTABLE.
[2018-07-27] MEDS: SIMVASTATIN 20 MG TABLET PO SCH (21:16)
--- NOTE | 2018-07-27 21:25 | NUR ---
MEDS ADMIN/NUTRITION: BLOOD SUGAR RESULT 152MG/DL. NO COVERAGE. HAD TURKEY SANDWICH FOR SNACK,SINCE DINNER WAS NOT GIVEN PER . TOLERATED WELL THEN TOOK HIS DUE MEDS AFTER.
--- NOTE | 2018-07-27 23:45 | NUR ---
ROUNDS: PATIENT RESTING WITH EYES CLOSE. BREATHING PATTERN REGULAR.
[2018-07-28 00:10] VITALS: BP_SYST 82
--- NOTE | 2018-07-28 00:10 | NUR ---
VITAL SIGNS TAKEN: BP 82/53 TEMP.99.3 RR 16 SAT 96%. TAKEN BT TIRE RETREADER. REPORTED TO ENTERPRISE RESOURCE PLANNER ,RECHECKED X3 STILL BP 86/54 /84/50/ 84/52 TEMP. 99.8 SLEEPING BUT AROUSABLE.
--- NOTE | 2018-07-28 00:25 | NUR ---
PAGED Himanshu WILEY.
--- NOTE | 2018-07-28 00:40 | NUR ---
BP RE CHECK: BP 86/54 HR 98/MIN /SAT 98% TEM 99.6.
--- NOTE | 2018-07-28 00:50 | NUR ---
RE PAGED Himanshu WILEY.
--- NOTE | 2018-07-28 00:57 | NUR ---
DR. GOMEZ CALLED BACK. REPORTED OF LOW BLOOD PRESSURE AND TEMP AT 1955 AT 100.5 AND CURRENT CONDITIONS WITH ORDERS WILL START SEPSIS PROTOCOL.
[2018-07-28] MEDS ORDERED: NACL 0.9% 1,000 ML IV ONE (01:00)
--- NOTE | 2018-07-28 01:10 | NUR ---
NORMAL SALINE 1 LITER TO RUN OVER 2 HRS INITIATED. BP WAS 78/49 . 500 ML NS RUN AT 950ML/HR.PATIENT SLEEPY ,EASILY AWAKENED.INFORMED CURRENT PLAN OF CARE. BLOOD CULTURE AND LACTIC ACID DRAWN BY LAB RESIDENTIAL REAL ESTATE ASSISTANT
--- NOTE | 2018-07-28 01:28 | NUR ---
BP 90//57 99/MIN SAT 100%.RR 16.
--- NOTE | 2018-07-28 01:45 | NUR ---
BP 93/55 99 97% .
--- NOTE | 2018-07-28 01:55 | NUR ---
BP AFTER 500ML NS INFUSED. 104 /59 HR 100 SAT 975 RA RR 17 . SKIN DIVING TEACHER AWARE. WILL INFUSE REMAINING NS OVER 1 HR.
[2018-07-28 02:40] VITALS: BP_SYST 103
--- NOTE | 2018-07-28 03:20 | NUR ---
VOMTING: THIRSTY. DRINKING WATER. FELT NAUSEATED ,VOMITTED 40ML YELLOWISH /GREENISH GASTRIC SECRETIONS. ABDOMEN DISTENDED. ZOFRAN 4MG IV GIVEN.
--- NOTE | 2018-07-28 03:30 | NUR ---
BP 126/77 HR 110 RR 20 SAT 98% TEMP 98.6.
[2018-07-28 03:41] LABS: BASOPHILS # (AUTO) 1.1 K/uL (0.0-0.2); EOSINOPHILS # (AUTO) 0.2 K/uL (0.0-0.4); HEMATOCRIT 28.1 % (36-54); HEMOGLOBIN 9.7 g/dL (14.0-18.0); LYMPHOCYTES # (AUTO) 1.4 K/uL (1.0-5.5); LYMPHOCYTES % (AUTO) 7.2 % (20.5-51.5); MEAN CORPUSCULAR HEMOGLOBIN 28 pg (27-31); MEAN CORPUSCULAR HGB CONC 35 % (32-36); MEAN CORPUSCULAR VOLUME 80 fL (79.0-98.0); MONOCYTES # (AUTO) 2.2 K/uL (0.0-1.0); MONOCYTES % (AUTO) 11.1 % (1.7-9.3); NEUTROPHILS # (AUTO) 14.6 K/uL (1.8-7.7); NEUTROPHILS % (AUTO) 75.3 % (40.0-70.0); PLATELET COUNT (AUTO) 242 K/uL (130-430); RED CELL DISTRIBUTION WIDTH 11.9 % (9.0-15.0); WHITE BLOOD COUNT (AUTO) 19.5 K/uL (4.8-10.8)
[2018-07-28] MEDS: ONDANSETRON HCL 4 MG/2 ML VIAL IVP PRN (03:50)
[2018-07-28] MEDS: VANCOMYCIN HCL 1,000 MG in NS 250 ML IV SCH (03:53)
--- NOTE | 2018-07-28 04:05 | NUR ---
EPIDURAL SITE CHECKED. DRY AND INTACT. DENIES PAIN. WOUND DRESSING TP LEFT FOOT CHANGED. WOUND CLEANSED WITH NS WITH HYDROGEL ,COVERED WITH OPTIFOAM.
[2018-07-28 04:13] LABS: CREATININE 3.78 mg/dL (0.55-1.30); POTASSIUM 4.6 mmol/L (3.5-5.1)
[2018-07-28] MEDS: FENT2mCg/mL-ROPIVA0.2%/NS EPID 200 ML EP SCH (06:14)
--- NOTE | 2018-07-28 06:20 | NUR ---
FENTANYL/NAROPIN BAG CHANGED CO SIGNED BY EVERT TOMLIN.
--- NOTE | 2018-07-28 07:00 | NUR ---
CLOSING: HOURLY ROUNDS DONE. ALL NEEDS WERE ATTENDED. 2ND LACTIC ACID 1.5. WBC 16.5. SINUS TACHYCARDIA. SAFETY MEASURES OBSERVED WHOLE SHIFT.FULL REPORT GIVEN TO AM RN FOR CONTINUITY OF CARE.CALL LIGHT NEAR BY. BED IN LOW POSITION.
[2018-07-28 07:44] VITALS: BP_SYST 113
--- NOTE | 2018-07-28 07:46 | NUR ---
Initial notes: Patient on bed awake,alert and oriented. Stable. Safety measures in placed. Call light within reach. Report received from maintenance supervisor 2nd shift, Lisandra LOYD.
[2018-07-28] MEDS: MINERAL OIL 30 ML UDC PO SCH (08:06)
[2018-07-28] MEDS: LOSARTAN POTASSIUM 50 MG TABLET (COZAAR) PO SCH (08:06)
[2018-07-28] MEDS: CILOSTAZOL 50 MG TABLET (PLETAL) PO SCH ×3 (08:08→20:14)
[2018-07-28] MEDS: ASPIRIN 81 MG TAB.CHEW PO SCH (08:08)
--- NOTE | 2018-07-28 09:00 | NUR ---
Sara rounds: Dr. Dudley seen the patient. Informed of BP. Decreased the naropin to 8cc/hr. Addendum: 07/28/18 at 1029 by Ebony Leone RN Called and informed Dr. Dudley patient only voided once per welder 2nd shift. Received new orders from Dr. Dudley.
[2018-07-28] MEDS ORDERED: NS 400 ML IV ONE (10:15)
--- NOTE | 2018-07-28 10:54 | NUR ---
Chinchilla Cath: Patient refused for chinchilla cath insertion. Did the bladder scan 735ml. Encouraged the patient and able to insert chinchilla cath. # 16 FR Chinchilla catheter with 10 cc bulb inserted with use of sterile technique. Bulb inflated with 10 cc sterile water. Immediate return of 600 cc yellow urine noted. Bedside drainage bag placed below level of bladder. Urine sample collected and sent to lab at 10:48. Pt tolerated procedure well. Addendum: 07/28/18 at 1206 by Ebony Leone RN immediate return was 400 instead of 600.
[2018-07-28 11:10] LABS: BILIRUBIN,URINE NEGATIVE (NEGATIVE); CLARITY/URINE CLEAR (CLEAR); COLOR,URINE YELLOW (YELLOW); GLUCOSE,URINE TRACE (NEGATIVE); KETONES,URINE NEGATIVE (NEGATIVE); LEUKOCYTE ESTERASE ,URINE NEGATIVE (NEGATIVE); NITRITE, URINE NEGATIVE (NEGATIVE); PH,URINE 5.5 (5.0-8.0); PROTEIN URINE 2+ (NEGATIVE); UROBILINOGEN,URINE 0.2 (0.2-1.0)
[2018-07-28 11:12] LABS: BLOOD, URINE TRACE (NEGATIVE)
[2018-07-28 11:19] LABS: WBC,URINE 0-3 /HPF (0-3)
[2018-07-28 11:20] LABS: BACTERIA,URINE FEW /HPF (None Seen); MUCUS,URINE 1+ /LPF (None Seen)
[2018-07-28 11:21] VITALS: BP_SYST 101
[2018-07-28] MEDS: INSULIN REGULAR, HUMAN 100 UNITS/ML, 10 ML VIAL (novoLIN R) SUBCUT PRN (11:39)
[2018-07-28] MEDS: CEFEPIME 1 GM in D5W 50 ML IV SCH (12:03)
--- NOTE | 2018-07-28 12:07 | NUR ---
rounds: patient sitting upright and eating breakfast. no distress noted.
[2018-07-28] MEDS ORDERED: FLUCONAZOLE 200 mg/ NS 100 ML IV ONE (12:30)
--- NOTE | 2018-07-28 12:53 | NUR ---
rounds: patient on bed resting. no distress noted.
[2018-07-28] MEDS ORDERED: NACL 0.9% 1,000 ML IV SCH ×2 (15:00→19:00)
[2018-07-28] MEDS ORDERED: MAG-AL HYDROX/SIMETH 30 ML UDC PO ONE (15:15)
[2018-07-28] MEDS ORDERED: PANTOPRAZOLE GRANULES PACKET 40 MG GT ONE (15:15)
[2018-07-28] MEDS ORDERED: MAG-AL HYDROX/SIMETH 30 ML UDC PO PRN (15:15)
[2018-07-28] MEDS ORDERED: BISACODYL 5 MG TABLET.DR (DULCOLAX) PO ONE (15:15)
--- NOTE | 2018-07-28 15:23 | NUR ---
Sara rounds: Dr. Zhang seen the patient with new orders. Addendum: 07/28/18 at 1842 by Ebony Leone RN Dr. Zhang aware urine having a blood. He ordered a consult for nephro.
[2018-07-28 15:24] VITALS: BP_SYST 108
[2018-07-28] MEDS ORDERED: PANTOPRAZOLE SODIUM 40 MG TAB PO ONE (15:30)
--- NOTE | 2018-07-28 15:30 | NUR ---
CONSULTATION PAGED/CALLED Reason for Consultation: RF Person Who was Notified: SPOKE WITH KEILY FROM DR. HEAD exchange [phone] Consulting Physician: Coil Inspector Specialty: NEPHRO Ordering Physician:
--- NOTE | 2018-07-28 17:08 | NUR ---
rounds: patient sleeping. no distress noted.
[2018-07-28] MEDS: BISACODYL 10 MG/SUPPOSITORY RC PRN (18:08)
--- NOTE | 2018-07-28 18:12 | NUR ---
Incentive spirometer: Patient able to do at 800level. Encourage to do it frequently.
[2018-07-28] MEDS: NACL 0.9% 1,000 ML IV SCH (18:26)
--- NOTE | 2018-07-28 18:46 | NUR ---
Closing notes: Patient on bed resting. Stable. Needs attended. On epidural Naropin with Fentanyl @ 8cc/hr. Safety measures in placed. Call light within reach. Report will be given to shift commander.
[2018-07-28 20:00] VITALS: BP_SYST 123
--- NOTE | 2018-07-28 20:00 | NUR ---
Initial Notes Received patient resting in bed, awake, alert, oriented. Patient denies any acute distress or pain at this time. Breathing is even and unlabored. Vital signs stable. Current IV site slightly swollen, new IV access obtained right forearm #22 by Agnes LOYD, aseptic tech used, good blood return noted, flushes with ease. Epidural infusing per MD orders, cath in place. Dressings noted to left leg and foot, clean/dry/intact. Needs addressed. Educated patient regarding use of call light for assistance and fall precautions, patient verbalized understanding. Call light in hand, fall precautions in place. Will continue to monitor.
[2018-07-28] MEDS: SIMVASTATIN 20 MG TABLET PO SCH (20:14)
--- NOTE | 2018-07-28 22:00 | NUR ---
Nursing Notes Patient resting in bed, awake. Patient denies any acute distress or pain at this time. Breathing is even and unlabored. IV site patent/clean/dry. Epidural infusing without incident. Newell draining to gravity. Needs addressed. Call light in hand, fall precautions in place. Will continue to monitor.
--- NOTE | 2018-07-28 23:00 | NUR ---
Rounds Dr. Sebastian on unit to see patient.
--- NOTE | 2018-07-29 | NUR ---
Nursing Notes Patient resting in bed with eyes closed, easily aroused. Patient denies any acute distress, pain, or needs at this time. Breathing is even and unlabored. IV and epidural site clean/dry/intact. Newell draining to gravity. Call light in hand, fall precautions in place. Will continue to monitor.
[2018-07-29] MEDS: VANCOMYCIN HCL 1,000 MG in NS 250 ML IV SCH (00:50)
[2018-07-29 01:30] VITALS: BP_SYST 110
--- NOTE | 2018-07-29 02:30 | NUR ---
Nursing Notes/Endorsement of Care Patient resting in bed with eyes closed, easily aroused. Patient denies any acute distress or pain at this time. Breathing is even and unlabored. IV site patent/clean/dry. Epidural infusing per MD orders. Newell draining to gravity. Needs addressed. Call light in hand, fall precautions in place. Endorsed care of patient to Tru LOYD.
--- NOTE | 2018-07-29 02:30 | NUR ---
i have assumed the care of the pt.for the remainder of the shift.adriana;rn has conveyed the pt's report/data. pt.presents diabetic ulcer lt.foot:s/p debredment:pt.presents lt.thigh:insertion site:fem/pop 07/27/18. pt.is currently receiving epidural:fentynal infusing @8ml/hr.i have assessed the lt.foot/leg;skin hue:pale: pt.has sensed the tactile stimulation pt.capable to move toes.pulse located;weak.call light/telephone placed w/in the pt's reach.
--- NOTE | 2018-07-29 03:30 | NUR ---
pt.presents nausea.i have administered zofran;4mg ivp.pt.had requested milk x2.i have provide the milk. no additional requests.
[2018-07-29] MEDS: ONDANSETRON HCL 4 MG/2 ML VIAL IVP PRN (03:31)
--- NOTE | 2018-07-29 04:04 | NUR ---
pt.assessed.i have assessed the lt.leg/foot.lt.foot hue;pale,touch warm,pt.sensed the tactile stimulation. pt.capable to move toes.pt.sates slight numbness,slight pain.pt.presents chinchilla catheter;patent:urine content present.iv fluids access;patent:iv fluids infusing.nausea has lessened.call light/telephone placed w/in the pt's reach.pt.repositioned.pt.presents iv access lt.antecubital:appearance;edematous, pt.requested the removal if the iv access.i have removed the iv access:2x2 dsg placed.call light/ telephone placed w/in the pt's reach.
[2018-07-29] MEDS: NACL 0.9% 1,000 ML IV SCH ×3 (05:41→16:44)
[2018-07-29] MEDS: FENT2mCg/mL-ROPIVA0.2%/NS EPID 200 ML EP SCH (06:08)
--- NOTE | 2018-07-29 06:15 | NUR ---
haydee;rn has assited in the changing of the epidural bag:witnessed:co-signed:[id number],noted. pt.has been reposition,cleansed.i have assessed the insertion site:epideral lone:intact:absent kinks, i have reinforced the epidural line.scd:applied to the rt.farmer.i have changed the iv fluids bag.no additional requests@this time.call light/telephone placed w/in the pt's reach.
[2018-07-29 07:05] LABS: BASOPHILS % (AUTO) 0.2 % (0.0-2.0); CALCIUM 7.7 mg/dL (8.4-11.0); CREATININE 4.61 mg/dL (0.55-1.30); EOSINOPHILS % (AUTO) 0.1 % (0.0-4.0); HEMATOCRIT 28.9 % (36-54); HEMOGLOBIN 9.7 g/dL (14.0-18.0); LYMPHOCYTES # (AUTO) 1.1 K/uL (1.0-5.5); LYMPHOCYTES % (AUTO) 6.1 % (20.5-51.5); MEAN CORPUSCULAR HEMOGLOBIN 27 pg (27-31); MEAN CORPUSCULAR HGB CONC 33 % (32-36); MEAN CORPUSCULAR VOLUME 81 fL (79.0-98.0); MONOCYTES # (AUTO) 1.3 K/uL (0.0-1.0); MONOCYTES % (AUTO) 7.5 % (1.7-9.3); NEUTROPHILS # (AUTO) 15.5 K/uL (1.8-7.7); NEUTROPHILS % (AUTO) 86.1 % (40.0-70.0); PLATELET COUNT (AUTO) 292 K/uL (130-430); POTASSIUM 4.9 mmol/L (3.5-5.1); RED BLOOD CELL COUNT(AUTO) 3.57 MIL/uL (4.2-6.2); RED CELL DISTRIBUTION WIDTH 12.3 % (9.0-15.0); WHITE BLOOD COUNT (AUTO) 17.9 K/uL (4.8-10.8)
--- NOTE | 2018-07-29 07:30 | NUR ---
Anesthesiologist Rounds: Seen by Dr. Dudley, per MD will continue epidural drip. Will re evaluate in the morning.
--- NOTE | 2018-07-29 07:55 | NUR ---
AM ROUNDS: Patient is awake, oriented x4. Denies pain, on Epidural drip with Naropin 0.2% at 8ml/hr via. Epidural catheter on the midback is intact, secured with tegaderm dressing. Insertion side is noted with old, small dried blood spot. Abdomen is distended, tender, board like but bowel sounds are present on all quadrants, denies abdominal pain. Patient had a bowel movement this morning. Iv fluids of Normal saline at 100 cc/hr infusing on the right forearm gauge 22. Newell catheter draining light brown urine output with sediments noted on the tubing. Right leg is cool to touch, with SCD for DVT prophylaxis. Left leg is tender, warm to touch with edema 1+. Dressing is noted on the left thigh and one below the left knee with spot of dried drainage. Patient is able to move all extremities. Encouraged to continue using the incentive spirometer, patient verbalized understanding. Call light within reach. Bed in lowest position, bed alarm is on.
[2018-07-29 08:19] VITALS: BP_SYST 149
[2018-07-29] MEDS: CILOSTAZOL 50 MG TABLET (PLETAL) PO SCH ×4 (09:00→20:13)
[2018-07-29] MEDS ORDERED: PANTOPRAZOLE GRANULES PACKET 40 MG GT SCH (09:00)
[2018-07-29] MEDS: ASPIRIN 81 MG TAB.CHEW PO SCH (09:06)
[2018-07-29] MEDS: PANTOPRAZOLE SODIUM 40 MG TAB PO SCH (09:06)
[2018-07-29] MEDS: MINERAL OIL 30 ML UDC PO SCH (09:06)
[2018-07-29] MEDS: INSULIN REGULAR, HUMAN 100 UNITS/ML, 10 ML VIAL (novoLIN R) SUBCUT PRN ×2 (11:36→20:09)
[2018-07-29] MEDS: CEFEPIME 1 GM in D5W 50 ML IV SCH (11:38)
--- NOTE | 2018-07-29 12:15 | NUR ---
WOUND EVALUATION: Late note for 12:15 secondary to patient care. Wound Consult received from Dr. Wahl. Thank you, Dr. Mittal, for the consult. Patient received in a [place] Bed with an IsoFlex LEDA mattress, awake, alert, and oriented x 4. Patient is able to turn in bed independently. Brock Score is a 17. Past Medical History: Diabetes Mellitus, Hypertension, Appendectomy. Patient was admitted with erythematous and edematous left foot. Recent Labs: WBC 17.9, RBC 3.57, hemoglobin 9.7, hematocrit 28.9, ESR 75, sodium 133, BUN 52, creatinine 4.61, GFR 14, glucose 152, calcium 7.7, PT 9.1. Microbiology: MRSA screen results negative. Blood culture results 2 negative. Surgical specimen culture results in progress. Blood culture results 2 in progress. Intrinsic factors that delay wound healing: Diabetes mellitus. Extrinsic factors that delay wound healing: Decreased mobility. Wound Assessment: 1. Left lateral fifth metatarsal head: Diabetic/neuropathic ulcer, present on admission. Site is status post excisional debridement (to the muscle) of left fifth lateral toe ulcer by Dr. Wahl on 07/25/18. Wound bed has 75% yellow tissue, 20% pink tissue, 5% purple discoloration underneath the skin. No odor, no drainage. Periwound and surrounding tissue has top superficial layer of skin missing secondary to debridement, and is pink and white in color. Wound measures 1.0 cm x 1.5 cm. Total area including surrounding tissue that was debrided measures 3.1 cm x 4.4 cm. Post debridement, graded Couch Classification Grade 1. Recommend: Cleanse wound with normal saline. Put moisture barrier cream onto periwound and surrounding tissue. Apply Venelex ointment onto wound bed. Cover with foam dressing. Perform wound care daily, and as needed for dressing soiling or dislodgment. Also recommend: Encourage and assist patient as needed with repositioning every 2 hours with pillow support and off-load pressure areas with pillows for pressure re-distribution. Offload, elevate and float bilateral heels with pillows. Perform skin care and monitor skin integrity Q shift.
--- NOTE | 2018-07-29 12:15 | NUR ---
Rounds: Patient is comfortable. Denies any pain. Wound on the left foot was checked by wound care nurse. Encouraged patient to continue using incentive spirometer. Continues on epidural drip with naropin 0.2% at 8ml/hr. Epidural catheter is intact and patent.
[2018-07-29 12:56] VITALS: BP_SYST 117
--- NOTE | 2018-07-29 13:16 | NUR ---
MD rounds: Informed Dr. Pruitt of the patient's distended and tender abdomen. MD has seen patient, no new orders.
--- NOTE | 2018-07-29 13:30 | NUR ---
WOUND CARE: LEFT FEMORAL, THIGH AND KNEE INCISION: NO drainage, no redness noted. Cleansed with normal saline, pat dried, covered with foam dressing. Doppler: Used doppler to auscultate left pedal pulse on the left foot.
--- NOTE | 2018-07-29 13:45 | NUR ---
Epidural drip: Catheter is removed by Dr. Dudley. Tip is present and intact. No bleeding noted on the site. Covered with band aid. Will monitor for leaking on the site.
[2018-07-29] MEDS: BALSAM PERU/CASTOR OIL 60 GM OINT...G. TP SCH (15:43)
--- NOTE | 2018-07-29 15:48 | NUR ---
wound care: Left foot: Cleansed wound with normal saline. Applied moisture barrier cream onto periwound and surrounding tissue. Applied Venelex ointment onto wound bed. Covered with foam dressing.
[2018-07-29 17:48] VITALS: BP_SYST 145
--- NOTE | 2018-07-29 18:20 | NUR ---
End of shift: Needs attended, no change in assessment. Seen by Dr. Sebastian, explained to the patient and spouse regarding today's lab results.
--- NOTE | 2018-07-29 19:20 | NUR ---
OPENING NOTE Received report from Katlyn. Patient resting in bed awake, alert, oriented x4. at the bedside. Breathing unlabored and even on room air. No signs of distress, no needs at this time. Fall and safety precautions in place. Bed in lowest position, brake on, alarm on, call light within reach. IVF infusing as ordered. SCD on right leg. Left left elevated. Newell catheter draining via gravity as ordered. Pillow support in place. Will continue to monitor.
[2018-07-29 20:00] VITALS: BP_SYST 132
[2018-07-29] MEDS: BISACODYL 10 MG/SUPPOSITORY RC PRN (20:10)
[2018-07-29] MEDS: SIMVASTATIN 20 MG TABLET PO SCH (20:10)
--- NOTE | 2018-07-29 20:18 | NUR ---
Med pass. Blood sugar 151. Administered 2 units of regular insulin PRN SQ as ordered per insulin sliding scale. Patient requested suppository. Administered per order. D/C tele.
--- NOTE | 2018-07-29 22:33 | NUR ---
Patient requested blanket. Provided one.
--- NOTE | 2018-07-29 23:37 | NUR ---
D/c chinchilla catheter due to epidural being d/c. 600cc urine output recorded.
[2018-07-30 00:10] VITALS: BP_SYST 118
--- NOTE | 2018-07-30 02:13 | NUR ---
Pt c/o not being able to urinate since chinchilla was d/c. Bladder scan showed 865cc of urine. Will get patient up and moving to the BSC. Bladder is distended and firm to the touch. Denies any pain at this time.
[2018-07-30] MEDS: NACL 0.9% 1,000 ML IV SCH ×3 (03:41→14:26)
--- NOTE | 2018-07-30 03:42 | NUR ---
New IVF hung
--- NOTE | 2018-07-30 03:45 | NUR ---
Pt urinated 325cc in the urinal. Clear, yellow urine noted.
[2018-07-30] MEDS: INSULIN REGULAR, HUMAN 100 UNITS/ML, 10 ML VIAL (novoLIN R) SUBCUT PRN ×2 (06:05→20:38)
--- NOTE | 2018-07-30 06:06 | NUR ---
Blood sugar 103. No insulin coverage needed per PRN sliding scale.
[2018-07-30 06:54] LABS: BASOPHILS % (AUTO) 0.2 % (0.0-2.0); EOSINOPHILS % (AUTO) 0.3 % (0.0-4.0); HEMATOCRIT 26.9 % (36-54); HEMOGLOBIN 8.9 g/dL (14.0-18.0); LYMPHOCYTES # (AUTO) 0.9 K/uL (1.0-5.5); LYMPHOCYTES % (AUTO) 6.8 % (20.5-51.5); MEAN CORPUSCULAR HEMOGLOBIN 28 pg (27-31); MEAN CORPUSCULAR HGB CONC 33 % (32-36); MEAN CORPUSCULAR VOLUME 82 fL (79.0-98.0); MONOCYTES # (AUTO) 1.1 K/uL (0.0-1.0); MONOCYTES % (AUTO) 8.1 % (1.7-9.3); NEUTROPHILS # (AUTO) 11.6 K/uL (1.8-7.7); NEUTROPHILS % (AUTO) 84.6 % (40.0-70.0); PLATELET COUNT (AUTO) 276 K/uL (130-430); RED BLOOD CELL COUNT(AUTO) 3.26 MIL/uL (4.2-6.2); RED CELL DISTRIBUTION WIDTH 11.9 % (9.0-15.0); WHITE BLOOD COUNT (AUTO) 13.6 K/uL (4.8-10.8)
[2018-07-30 06:57] LABS: ALBUMIN 2.3 g/dL (3.4-4.8); CALCIUM 7.8 mg/dL (8.4-11.0); CREATININE 3.06 mg/dL (0.55-1.30); POTASSIUM 4.4 mmol/L (3.5-5.1); TOTAL BILIRUBIN 0.3 mg/dL (0.0-1.0)
--- NOTE | 2018-07-30 07:34 | NUR ---
CLOSING NOTE Patient resting in bed awake, alert, oriented x4. Fall and safety precautions in place. Bed in lowest position, brake on, alarm on, call light within reach. IVF infusing as ordered. SCD on right leg. Left left elevated. Pillow support in place. Endorsed care to day shift nurse.
[2018-07-30 07:43] VITALS: BP_SYST 144
--- NOTE | 2018-07-30 07:45 | NUR ---
AM ROUNDS: Patient is awake, oriented x4. Denies pain, only tightness on the upper abdomen. Abdomen is distended, tender, bowel sounds are present on all quadrants. Patient had a bowel movement last night 07/29/18. IV fluids of Normal saline at 100 cc/hr infusing on the right forearm gauge 22. Bladder scan done with 445 urine in the bladder. Right leg is cool to touch, with SCD for DVT prophylaxis. Left leg is tender, warm to touch with edema 2+ with tight skin. Patient is able to move all extremities but with weakness on the left leg. Encouraged to continue using the incentive spirometer, patient verbalized understanding. Repositioned patient with head slight elevated. Folded wash cloths used to support the scrotum. Call light within reach. Bed in lowest position, bed alarm is on.
[2018-07-30] MEDS: CILOSTAZOL 50 MG TABLET (PLETAL) PO SCH ×2 (09:00→20:36)
[2018-07-30] MEDS: MINERAL OIL 30 ML UDC PO SCH (09:32)
[2018-07-30] MEDS: ASPIRIN 81 MG TAB.CHEW PO SCH (09:32)
[2018-07-30] MEDS: PANTOPRAZOLE SODIUM 40 MG TAB PO SCH (09:32)
[2018-07-30] MEDS: BALSAM PERU/CASTOR OIL 60 GM OINT...G. TP SCH (10:23)
--- NOTE | 2018-07-30 11:00 | NUR ---
DC Planning: s/w pt and his dtr in law/[facility] re snf placement. The pt is agreeable with snf placement for contination of IV ABX, wound care and PT. CM provided the snf of choice per [facility] contracted list, [facility] and pt. requested #[facility], #2 [facility] and [facility]3 [facility]. CM faxed referral inquiry to [facility] and [facility] -- CM to f/u.
--- NOTE | 2018-07-30 11:06 | NUR ---
MD NOTIFICATION Informed Dr. Sebastian regarding swollen scrotum. STAT Order made for Ultrasound of the scrotum. Will continue to monitor patient.
[2018-07-30 11:08] VITALS: BP_SYST 119
[2018-07-30] MEDS: CEFEPIME 1 GM in D5W 50 ML IV SCH (11:31)
--- NOTE | 2018-07-30 11:58 | NUR ---
WOUND CARE LEFT FEMORAL, THIGH AND KNEE INCISION: No drainage nor redness noted. Cleansed wound with normal saline, pat dried and covered with foam dressing, signed, timed and dated. LEFT FOOT: Cleansed wound with normal saline. Applied moisture barrier cream onto periwound and surrounding tissue. Applied Venelex ointment onto wound bed. Covered with foam dressing, signed, timed and dated. DOPPLER: Used doppler to auscultate left pedal pulse on the left foot.
--- NOTE | 2018-07-30 14:10 | NUR ---
Rounds: Patient is ambulating in the hallway with Physical Therapy.
--- NOTE | 2018-07-30 14:32 | NUR ---
DC Planning: Faxed referral inquiry to [facility] attn to [facility] and received call back stated that "unable to accept the pt. dt [facility] is not contracted with [facility] . Addendum: 07/30/18 at 1454 by Ruiz Umanzor RN >> [facility]: CM requested [facility] to call Tressa at [facility] to verify payor which per LISA Bustillos is at risk (not [employer] [facility]) to give auth and is the payor to snf. -- CM to f/u. Addendum: 07/30/18 at 1500 by Ruiz Umanzor RN >> [facility] : [facility] is waiting for admission to call back. All admitting staff is in meeting per gunnar Lopez. , fax# [phone].
[2018-07-30 15:17] VITALS: BP_SYST 157
--- NOTE | 2018-07-30 18:17 | NUR ---
END OF SHIFT: Needs attended, no change in assessment. Call light within reach.
--- NOTE | 2018-07-30 19:45 | NUR ---
OPENING NOTE Received report from Jose Alberto. Patient resting in bed awake, alert, oriented x4. Breathing unlabored and even on room air. No signs of distress, no needs at this time. Fall and safety precautions in place. Bed in lowest position, brake on, alarm on, call light within reach. IVF infusing as ordered. Will continue to monitor.
[2018-07-30] MEDS: SIMVASTATIN 20 MG TABLET PO SCH (20:35)
[2018-07-30 20:39] VITALS: BP_SYST 155
--- NOTE | 2018-07-30 20:40 | NUR ---
Med pass. Blood sugar 114. No insulin coverage needed per PRN insulin sliding scale.
--- NOTE | 2018-07-30 22:57 | NUR ---
Patient resting in bed awake, alert, oriented x4. Breathing unlabored and even on room air. No signs of distress, no needs at this time. Fall and safety precautions in place. Bed in lowest position, brake on, alarm on, call light within reach. IVF infusing as ordered. Will continue to monitor.
[2018-07-31] MEDS: NACL 0.9% 1,000 ML IV SCH ×2 (00:11→06:13)
--- NOTE | 2018-07-31 00:13 | NUR ---
New IVF hung. IV abx hung.
[2018-07-31] MEDS ORDERED: VANCOMYCIN HCL 1,000 MG in NS 250 ML IV SCH (01:00)
--- NOTE | 2018-07-31 04:29 | NUR ---
Patient resting in bed with eye closed. Breathing unlabored and even on room air. No signs of distress, no needs at this time. Fall and safety precautions in place. Bed in lowest position, brake on, alarm on, call light within reach. IVF infusing as ordered. Will continue to monitor.
[2018-07-31] MEDS: INSULIN REGULAR, HUMAN 100 UNITS/ML, 10 ML VIAL (novoLIN R) SUBCUT PRN ×2 (06:12→11:31)
--- NOTE | 2018-07-31 06:20 | NUR ---
Blood sugar 129. No insulin coverage needed.
--- NOTE | 2018-07-31 07:37 | NUR ---
CLOSING NOTE Gave report to Naomi. Patient resting in bed awake, alert, oriented x4. Breathing unlabored and even on room air. No signs of distress, no needs at this time. Fall and safety precautions in place throughout shift. Bed in lowest position, brake on, alarm on, call light within reach. IVF infusing as ordered. Endorsed care to day shift nurse.
[2018-07-31 08:21] LABS: ALBUMIN 2.3 g/dL (3.4-4.8); CALCIUM 8.1 mg/dL (8.4-11.0); CREATININE 2.14 mg/dL (0.55-1.30); POTASSIUM 4.4 mmol/L (3.5-5.1); TOTAL BILIRUBIN 0.3 mg/dL (0.0-1.0)
[2018-07-31 08:30] VITALS: BP_SYST 141
--- NOTE | 2018-07-31 08:30 | NUR ---
OPENING NOTE LATE ENTRY DUE TO PT CARE: REPORT IS RECEIVED FROM AUTO TRANSMISSION TECHNICIAN NURSE AND CARE IS ENDORSED TO MYSELF. PT IS RECEIVED AWAKE, ALERT, AND ORIENTED X4. NO SIGNS OR SYMPTOMS OF DISTRESS OR SOB NOTED. PT DENIES ANY PAIN. WHITE BOARD IS UPDATED AND PLAN OF CARE IS DISCUSSED. CURRENT NEEDS ARE MET. BED IS AT LOWEST POSITION, CALL LIGHT WITHIN REACH, THREE SIDE RAILS UP, BED ALARM IS ON. WILL CONTINUE TO MONITOR.
[2018-07-31] MEDS: ASPIRIN 81 MG TAB.CHEW PO SCH (08:41)
[2018-07-31] MEDS: PANTOPRAZOLE SODIUM 40 MG TAB PO SCH (08:42)
[2018-07-31] MEDS: BALSAM PERU/CASTOR OIL 60 GM OINT...G. TP SCH (08:43)
[2018-07-31] MEDS: CILOSTAZOL 50 MG TABLET (PLETAL) PO SCH (08:44)
[2018-07-31] MEDS: MINERAL OIL 30 ML UDC PO SCH (08:44)
--- NOTE | 2018-07-31 10:49 | NUR ---
ROUNDS PT IS AWAKE AND ALERT. NO SIGNS OR SYMPTOMS OF DISTRESS OR SOB NOTED. PT DENIES ANY PAIN. PHYSICAL THERAPY WORKED WITH PT AND LAID HIM BACK IN BED. CURRENT NEEDS ARE MET. BED IS AT LOWEST POSITION, CALL LIGHT WITHIN REACH, THREE SIDE RAILS UP, BED ALARM IS ON. WILL CONTINUE TO MONITOR.
--- NOTE | 2018-07-31 11:06 | NUR ---
PHYSICAL THERAPY INITIAL EVALUATION WAS PERFORMED YESTERDAY. PLEASE SEE TODAY'S PT TREATMENT NOTES.
[2018-07-31] MEDS ORDERED: DOXYCYCLINE HYCLATE 100 MG CAPSULE PO ONE (11:15)
--- NOTE | 2018-07-31 12:15 | NUR ---
ROUNDS PT IS AWAKE AND ALERT, SITTING ON THE SIDE OF BED EATING LUNCH. NO SIGNS OR SYMPTOMS OF DISTRESS OR SOB NOTED. PT DENIES ANY PAIN. INSULIN COVERAGE WAS GIVEN PER SLIDING SCALE. CURRENT NEEDS ARE MET. BED IS AT LOWEST POSITION, CALL LIGHT WITHIN REACH, THREE SIDE RAILS UP, BED ALARM IS ON. WILL CONTINUE TO MONITOR.
[2018-07-31 12:47] VITALS: BP_SYST 151
--- NOTE | 2018-07-31 13:00 | NUR ---
DC Planning: Per Alix at [facility], the pt. is accepted , given room 39B bed is available now, RVN to report # [phone]. Also received call from Tressa hyde at [facility], stated auth granted to [facility]. Pt. may transfer today and may use [facility] or any company that takes medical rate, BLS transportation fee. stephen Magaña made aware.
--- NOTE | 2018-07-31 14:20 | NUR ---
ROUNDS PT IS AWAKE AND ALERT. NO SIGNS OR SYMPTOMS OF DISTRESS OR SOB NOTED. PT DENIES ANY PAIN. PT IS MADE AWARE OF TRANSFER THIS AFTERNOON. CURRENT NEEDS ARE MET. BED IS AT LOWEST POSITION, CALL LIGHT WITHIN REACH, THREE SIDE RAILS UP, BED ALARM IS ON. WILL CONTINUE TO MONITOR.
--- NOTE | 2018-07-31 15:56 | NUR ---
Discharge Planning: MAP faxed pt referral to [facility] (f [phone] p [phone]): pt accepted room 39A. [facility] arranged transportation with [facility] 4:30pm ([phone]). Pt packet at nurses station, nurse to nurse [phone].
[2018-07-31 16:03] VITALS: BP_SYST 148
--- NOTE | 2018-07-31 16:15 | NUR ---
ROUNDS PT IS AWAKE AND ALERT. NO SIGNS OR SYMPTOMS OF DISTRESS OR SOB NOTED. WOUND CARE WAS DONE AND PT TOLERATED WELL. CURRENT NEEDS ARE MET. BED IS AT LOWEST POSITION, CALL LIGHT WITHIN REACH, THREE SIDE RAILS UP, BED ALARM IS ON. WILL CONTINUE TO MONITOR.
[2018-07-31 16:23] VITALS: BP_SYST 146
--- NOTE | 2018-07-31 17:08 | NUR ---
PT TRANSFERRED Report given to THOMAS at [facility]. Transfer packet with Transfer Orders and Medication Reconciliation form given to EMT with report. Exitcare provided. [facility] ID band removed, replaced with ID band with pt's name and . IV catheter removed, intact and dressing applied, no active bleeding. All belongings sent with patient. Patient left floor via gurney escorted by EMT in no distress.
[2018-07-31] MEDS ORDERED: DOXYCYCLINE HYCLATE 100 MG CAPSULE PO SCH (21:00)
== END 2018-07-31 17:05 | DRG 710 ==
LOC: SED 19:35 → SMU 22:55 → STU 07-27 12:03 → SMU 07-29 22:19
PROVIDERS: ADMIT Internal Medicine Hospice and Palliative Medicine; ATTEND Internal Medicine Hospice and Palliative Medicine
PROC: 0KBW0ZZ Excision of Left Foot Muscle, Open Approach (ICD-10-PCS; principal; 2018-07-25 13:45)
PROC: 041L0KL Bypass Left Femoral Artery to Popliteal Artery with Nonautologous Tissue Substitute, Open Approach (ICD-10-PCS; 2018-07-27)
DX: A41.9 Sepsis, unspecified organism (principal); N17.0 Acute kidney failure with tubular necrosis; E11.51 Type 2 diabetes mellitus with diabetic peripheral angiopathy without gangrene; I70.92 Chronic total occlusion of artery of the extremities; L03.115 Cellulitis of right lower limb; E11.21 Type 2 diabetes mellitus with diabetic nephropathy; E11.621 Type 2 diabetes mellitus with foot ulcer; I70.212 Atherosclerosis of native arteries of extremities with intermittent claudication, left leg; I25.10 Atherosclerotic heart disease of native coronary artery without angina pectoris; L97.519 Non-pressure chronic ulcer of other part of right foot with unspecified severity; L97.529 Non-pressure chronic ulcer of other part of left foot with unspecified severity; M86.8X7 Other osteomyelitis, ankle and foot; N45.1 Epididymitis; I10 Essential (primary) hypertension; I70.201 Unspecified atherosclerosis of native arteries of extremities, right leg; E78.00 Pure hypercholesterolemia, unspecified; E11.69 Type 2 diabetes mellitus with other specified complication; T50.8X5A Adverse effect of diagnostic agents, initial encounter; Y92.238 Other place in hospital as the place of occurrence of the external cause; Z87.891 Personal history of nicotine dependence; Z79.899 Other long term (current) drug therapy; Z90.49 Acquired absence of other specified parts of digestive tract; Z89.422 Acquired absence of other left toe(s)
CPT/HCPCS: 36415; 71045; 73706; 76770; 76870-TC; 78315; 80048; 80053; 80202-TC; 81000-TC; 82962; 83605; 85025; 85610-TC; 85651-TC; 86140; 87040-TC; 87070; 87070-TC; 87075-TC; 87081; 93005; 93306; 93880; 93923; 94010; 94640; 96365; 96375; 97116-GP; 97530-GP; 99285; A9503; C1751; J0692; J1450; J1644; J1815; J2250; J2270; J2405; J2543; J2704; J2765; J3010; J3370; J3490; J7030; J7040; J7050; J7060; J7120; Q9967

== ENCOUNTER 2018-08-10 10:50 | Inpatient (IN) | payer MEDICAID ==
[~2018-08-10] VITALS: Ht 165.1 cm; Wt 64.1 kg
--- NOTE | 2018-08-10 10:50 | NUR ---
Pt is waiting on wall with EMS
[2018-08-10 10:53] VITALS: BP_SYST 136
[2018-08-10] MEDS ORDERED: INSU100V7 SQ (11:28)
[2018-08-10] MEDS ORDERED: BALS60OI TP (11:28)
[2018-08-10] MEDS ORDERED: ASCO500T20 PO (11:28)
[2018-08-10] MEDS ORDERED: MINE25OI3 PO (11:28)
[2018-08-10] MEDS ORDERED: OMEP40CA33 PO (11:28)
[2018-08-10] MEDS ORDERED: ARGI1POW13 PO (11:28)
[2018-08-10] MEDS ORDERED: VANC125C10 IVPB (11:28)
[2018-08-10] MEDS ORDERED: DOXY-168 PO (11:28)
[2018-08-10] MEDS ORDERED: CILO100T PO (11:28)
[2018-08-10] MEDS ORDERED: ASPI-1155 PO (11:28)
[2018-08-10] MEDS ORDERED: SIMV20TA2 PO (11:28)
[2018-08-10] MEDS ORDERED: ZIN220 PO (11:28)
[2018-08-10] MEDS ORDERED: MULT-1117 PO (11:28)
[2018-08-10] MEDS ORDERED: ACET325T53 PO (11:34)
[2018-08-10] MEDS ORDERED: HYDR-4272 PO (11:34)
[2018-08-10] MEDS ORDERED: ACET-2634 PO (11:34)
[2018-08-10] MEDS ORDERED: FLEETMO RC (11:34)
[2018-08-10] MEDS ORDERED: METO-290 PO (11:34)
[2018-08-10] MEDS ORDERED: IPRA3AMP9 INH (11:34)
[2018-08-10] MEDS ORDERED: MOM PO (11:34)
[2018-08-10] MEDS ORDERED: BISA-79 RC (11:34)
--- NOTE | 2018-08-10 11:34 | NUR ---
Medication reconciliation completed with information provided by facility. Any prior medication reconciliation on file was reviewed and corrected.
--- NOTE | 2018-08-10 11:48 | NUR ---
Pt went to radiology in stable condition
--- NOTE | 2018-08-10 11:50 | NUR ---
Pt placed in bed 5
--- NOTE | 2018-08-10 12:02 | NUR ---
Patient returned from radiology in stable condition escorted by life support technician.
[2018-08-10 12:04] LABS: BASOPHILS % (AUTO) 0.3 % (0.0-2.0); EOSINOPHILS % (AUTO) 0.3 % (0.0-4.0); HEMATOCRIT 31.7 % (36-54); HEMOGLOBIN 10.5 g/dL (14.0-18.0); LYMPHOCYTES # (AUTO) 0.8 K/uL (1.0-5.5); LYMPHOCYTES % (AUTO) 6.4 % (20.5-51.5); MEAN CORPUSCULAR HEMOGLOBIN 27 pg (27-31); MEAN CORPUSCULAR HGB CONC 33 % (32-36); MEAN CORPUSCULAR VOLUME 83 fL (79.0-98.0); MONOCYTES # (AUTO) 0.6 K/uL (0.0-1.0); MONOCYTES % (AUTO) 4.7 % (1.7-9.3); NEUTROPHILS # (AUTO) 11.6 K/uL (1.8-7.7); NEUTROPHILS % (AUTO) 88.3 % (40.0-70.0); PLATELET COUNT (AUTO) 394 K/uL (130-430); RED BLOOD CELL COUNT(AUTO) 3.83 MIL/uL (4.2-6.2); RED CELL DISTRIBUTION WIDTH 12.5 % (9.0-15.0)
--- NOTE | 2018-08-10 12:05 | NUR ---
Patient c/c of difficulty taking complete breathe. Patient states he is s/p fem pop bipass, pulses present to bilateral lower extremities +2. Patient has good color and temperature to skin. Patient alert and oriented x 4, lethargic. Patient states no chest pain present. Patient resting comfortably.
[2018-08-10 12:10] LABS: CALCIUM 8.6 mg/dL (8.4-11.0); CREATININE 1.36 mg/dL (0.55-1.30); POTASSIUM 3.4 mmol/L (3.5-5.1)
[2018-08-10 12:19] LABS: ALBUMIN 2.6 g/dL (3.4-4.8); TOTAL BILIRUBIN 0.5 mg/dL (0.0-1.0)
--- NOTE | 2018-08-10 13:50 | NUR ---
ER at bedside speaking with patient.
[2018-08-10] MEDS ORDERED: cefTRIAXone 1 GM IVPB PREMIX 50 ML IV ONE (16:00)
[2018-08-10] MEDS ORDERED: AZITHROMYCIN 500 MG/VIAL (ZITHROMAX) IV ONE (16:00)
[2018-08-10] MEDS ORDERED: AZITHROMYCIN 500 MG in NS 250 ML IV ONE (16:00)
--- NOTE | 2018-08-10 16:02 | NUR ---
okjd per Dr. Lauren, patient to have CT without contrast. Patient sitting upright in bed.
--- NOTE | 2018-08-10 16:03 | NUR ---
Patient went to CT via wheelchair, will follow up upon his return.
--- NOTE | 2018-08-10 16:18 | NUR ---
Patient returned from CT, awaiting results. Patient antibiotics to be started.
--- NOTE | 2018-08-10 16:26 | NUR ---
Informed MD of patients increased work of breathing. MD to see.
--- NOTE | 2018-08-10 18:03 | NUR ---
Received orders from Dr. Marquez. Orders to be entered by nurse.
--- NOTE | 2018-08-10 18:25 | NUR ---
Patient will be admitted to care of Mirella Marquez. Admitted to Telemetry unit. Will go to room 106A. Belongings list completed. Summary report printed. Report will be given at bedside.
--- NOTE | 2018-08-10 18:26 | NUR ---
Admission Note Received patient from ER with diagnosis of PLEURAL EFFUSION. Initial Plan of Care discussed-patient verbalized understanding. Family at bedside. Oriented to room, call light, pain management and safety.
[2018-08-10] MEDS ORDERED: D5/0.45 NS 1,000 ML IV ONE (18:30)
--- NOTE | 2018-08-10 18:40 | NUR ---
NOTES IN BED, EATING DINNER, PT FEELS SHORT OF BREATH WITH EXERTION. ON O2 2L, O2 SAT AT 98%. DENIES ANY PAIN OR DISCOMFORT. MAKE COMFORTABLE IN BED. IVL ON THE RIGHT FOREARM NO. 22. ADMISSION ASSESSMENT NEEDS TO BE DONE. WILL ENDORSE. ORIENTED MARSHMALLOW MAKER LIGHT USE. CALL LIGHT IN USE.
[2018-08-10 18:41] VITALS: BP_SYST 165
--- NOTE | 2018-08-10 19:30 | NUR ---
OPENING NOTE Patient resting on the bed. AAO x 4. Denied of pain. On O2 2L/min via NC. Skin warm and dry to touch. SL intact to RFA, no redness, no swelling. Generalized edema noted. Discussed safety issue, use call light when need help, and plan of care, verbally understanding. Safety measure maintained. Bed locked in low position, side rails up. Call light within reached. Will continue to monitor.
--- NOTE | 2018-08-10 19:48 | NUR ---
CALLED [facility] Informed to Dr. Marquez, patient with generalized edema and with order of D5 1/2NS at 100ml/hr. Asked Dr. Marquez to clarify the IVF order. Dr. Marquez with order to D/C IVF. Order read back and okay to
[2018-08-10 19:50] VITALS: BP_SYST 141
--- NOTE | 2018-08-10 21:30 | NUR ---
ROUND Patient resting on the bed. No acute distress. Respiration even and unlabored. On O2 2L/min via NC. Safety measure maintained. Bed locked in low position, side rails up, bed alarm on. Call light within reached. Continue to monitor.
--- NOTE | 2018-08-10 23:20 | NUR ---
ROUND Patient resting on the bed with eyes closed. No acute distress. No SOB. Continue on O2 2L/min via NC. Safety measure maintained. Bed locked in low position, side rails up, bed alarm on. Call light within reached. Continue to monitor.
[2018-08-10] MEDS ORDERED: METOCLOPRAMIDE HCL 10 MG TABLET PO PRN (23:45)
[2018-08-10] MEDS ORDERED: ACETAMINOPHEN 325 MG TABLET PO PRN (23:45)
[2018-08-10] MEDS ORDERED: MINERAL OIL 133 ML ENEMA RC PRN (23:45)
[2018-08-10] MEDS ORDERED: MILK OF MAGNESIA 30 ML UDC PO PRN (23:45)
[2018-08-11] MEDS ORDERED: ACETAMINOPHEN 500 MG TABLET PO SCH
[2018-08-11 00:10] VITALS: BP_SYST 100; BP_SYST 130
--- NOTE | 2018-08-11 00:10 | NUR ---
RECEIVED THE CALL FROM OUTSIDE PHARMACY Per Oct-outside pharmacy, the order of Tylenol not clear, one schedule and one PRN, will call MD to clarify in the morning. Patient denied of pain. Continue to monitor.
[2018-08-11 00:15] VITALS: BP_SYST 165
--- NOTE | 2018-08-11 03:00 | NUR ---
ROUND Patient resting on the bed with eyes closed. No acute distress. Respiration even and unlabored. No SOB. Continue on O2 2L/min via NC. Safety measure maintained. Bed locked in low position, side rails up, bed alarm on. Call light within reached. Continue to monitor.
--- NOTE | 2018-08-11 04:22 | NUR ---
ROUND Patient resting on the bed. No acute distress. Respiration even and unlabored noted. No SOB. Continue on O2 2L/min via NC. Safety measure maintained. Bed locked in low position, side rails up, bed alarm on. Call light within reached. Continue to monitor.
--- NOTE | 2018-08-11 05:58 | NUR ---
MRSA OF [facility]ES SWAB DONE AND SENT TO LAB.
--- NOTE | 2018-08-11 06:32 | NUR ---
CLOSING NOTE Patient resting on the bed. Denied of pain. On O2 2L/min via NC. No SOB noted at this time. Skin warm and dry to touch. SL intact to RFA, no redness, no swelling. All needs met. Hourly rounding during shift. Safety measure maintained. Bed locked in low position, side rails up, bed alarm on. Call light within reached. Will endorse to monitor shift nurse.
[2018-08-11] MEDS: OMEPRAZOLE 20 MG CAPSULE.DR (PriLOSEC) PO SCH (06:50)
--- NOTE | 2018-08-11 07:30 | NUR ---
Opening note patient resting in bed, awake alert and oriented x 4, denies any pain, feels short of breath especially upon exertion, on o2 2 liters, called respiratory to give breathing treatment at this time, small dressings noted on left lower extremity, dressing dry and intact, safety precautions observed, bed alarm on, call light within reach, encouraged to use call light when needed.
[2018-08-11] MEDS: IPRATROPIUM/ALBUTEROL SULFATE 3 ML AMPUL.NEB (DUONEB) INH PRN ×3 (07:40→21:18)
[2018-08-11 08:00] VITALS: BP_SYST 135
--- NOTE | 2018-08-11 08:30 | NUR ---
Notes patient up in chair and eating breakfast at this time, no signs of distress, will continue to monitor.
[2018-08-11] MEDS: MINERAL OIL 30 ML UDC PO SCH ×2 (09:00→09:12)
[2018-08-11] MEDS: ASPIRIN 81 MG TAB.CHEW PO SCH (09:12)
[2018-08-11] MEDS: ASCORBIC ACID 500 MG TABLET PO SCH (09:12)
[2018-08-11] MEDS: MULTIVITAMINS TAB 1 TABLET PO SCH (09:12)
--- NOTE | 2018-08-11 09:29 | NUR ---
Nutrition Update Brock Scale 17 noted. Pt admitted for pneumonia, pleural effusion. Diet: cardiac BMI: 24.5 kg/m2 RD to follow per nutrition care standards.
--- NOTE | 2018-08-11 10:19 | NUR ---
Notes patient resting in chair, denies any pain or distress, tolerated breakfast well and wants to rest at this time, will continue to monitor, call light within reach, fall and aspiration precautions in place.
[2018-08-11 11:38] VITALS: BP_SYST 141
--- NOTE | 2018-08-11 12:22 | NUR ---
Notes patient resting in chair, blood glucose check completed, patient denies any pain or acute distress, will continue to monitor, call light within reach, fall and aspiration precautions in place.
--- NOTE | 2018-08-11 14:17 | NUR ---
Notes patient resting in chair, denies any pain or distress, offered to have breathing treatment but patient prefers to have it later, denies any shortness of breath, call light within reach, encouraged patient to use call light when needed, fall and aspiration precautions in place.
[2018-08-11 16:34] VITALS: BP_SYST 151
--- NOTE | 2018-08-11 16:43 | NUR ---
PAGED PAGE DR. BUTLER, FOR SOME ORDERS. STATED THAT HE WILL COME IN AN HOUR TO SEE PATIENT.
[2018-08-11] MEDS: SIMVASTATIN 20 MG TABLET PO SCH (17:06)
--- NOTE | 2018-08-11 18:42 | NUR ---
Closing note/ MD rounds patient resting in chair, Dr. Marquez at bedside talking to the patient, MD informed about last dose of antibiotics in ER last night and blood sugar, and DVT prophylaxis, patient denies any pain, shortness of breath, or distress, refusing to eat dinner at this time, will continue to monitor, will endorse report to oncoming nurse, call light within reach, fall and aspiration precautions in place.
[2018-08-11] MEDS ORDERED: NON-FORMULARY MEDICATION (Hydrocodone/Acetaminophen (Norco 5-325 Tablet) 1 EACH) PO SCH (18:45)
[2018-08-11] MEDS ORDERED: DEXTROSE 50% JECT 50 ML DISP.SYRIN IVP PRN ×2 (18:45)
[2018-08-11] MEDS ORDERED: BISACODYL 5 MG TABLET.DR (DULCOLAX) PO PRN (18:45)
[2018-08-11] MEDS ORDERED: FUROSEMIDE 20 MG/2 ML VIAL IVP SCH (19:45)
[2018-08-11 19:47] VITALS: BP_SYST 125
--- NOTE | 2018-08-11 19:52 | NUR ---
INITIAL NOTE AT INITIAL ASSESSMENT, PATIENT IS RESTING UPRIGHT IN A CHAIR AT BEDSIDE. HE IS STABLE, NO SIGNS OF RESPIRATORY DISTRESS. PATIENT VERBALIZES TOLERABLE PAIN. PLAN OF CARE FOR THE EVENING IS COMMUNICATED WITH THE PATIENT. CALL LIGHT- TEACH BACK IS SUCCESSFUL. FALL AND SAFETY PRECAUTIONS WILL BE IN PLACE THROUGHOUT THE SHIFT.
[2018-08-11] MEDS: LEVOFLOXACIN 500 MG/D5W 100 ML IV SCH (20:00)
[2018-08-11] MEDS: VANCOMYCIN HCL 250 MG CAPSULE PO SCH (20:35)
[2018-08-11] MEDS: INSULIN REGULAR, HUMAN 100 UNITS/ML, 10 ML VIAL (novoLIN R) SUBCUT PRN (20:50)
--- NOTE | 2018-08-11 20:54 | NUR ---
CONSULTATION PAGED/CALLED Reason for Consultation: PNA Person Who was Notified: ERICK Consulting Physician: WALTER MARSH Tapering Machine Operator Specialty: ID Ordering Physician: Mey BUTLER
--- NOTE | 2018-08-11 20:56 | NUR ---
CONSULTATION PAGED/CALLED Reason for Consultation: PLEURAL EFFUSION Person Who was Notified: ERICK Consulting Physician: NARA Mail Officer Specialty: Ordering Physician: Mey BUTLER
[2018-08-11] MEDS ORDERED: INSULIN REGULAR HUMAN 100 UNIT SQ SCH (21:00)
[2018-08-11] MEDS ORDERED: CILOSTAZOL PO SCH (21:00)
[2018-08-11] MEDS ORDERED: NON-FORMULARY MEDICATION (Doxycycline Hyclate 1 TAB) PO SCH (21:00)
--- NOTE | 2018-08-11 21:01 | NUR ---
CONSULTATION PAGED/CALLED Reason for Consultation: SCROTAL EDEMA Person Who was Notified: KEILY Consulting Physician: COOKIE MCGEE.. THE ELAYNE CROWLEY Waste Collection Driver Specialty: URO Ordering Physician: Mey BUTLER
[2018-08-11] MEDS ORDERED: LEVOFLOXACIN 500 MG/D5W 100 ML IV ONE (21:17)
[2018-08-11] MEDS ORDERED: HYDROcodone/ACETAMIN 5-325 MG TAB (NORCO/ VICODIN) PO PRN (21:45)
--- NOTE | 2018-08-11 21:48 | NUR ---
NOTE PATIENT IS RESTING UPRIGHT IN A CHAIR AT BEDSIDE, STABLE, NO SIGNS OF RESPIRATORY DISTRESS. CALL LIGHT IS WITHIN REACH.
[2018-08-11] MEDS ORDERED: DOXYCYCLINE HYCLATE 100 MG CAPSULE PO SCH (22:00)
--- NOTE | 2018-08-11 23:45 | NUR ---
NOTE PATIENT IS SLEEPING UPRIGHT IN BED, HE IS STABLE, NO SIGNS OF RESPIRATORY DISTRESS. CALL LIGHT IS WITHIN REACH. BED IS LOCKED, ALARMED, AND AT THE LOWEST LEVEL.
--- NOTE | 2018-08-12 00:57 | NUR ---
CONSULTATION PAGED/CALLED Reason for Consultation: CHF Person Who was Notified:PAULINA Consulting Physician: Isidro BUTLER Director Of Payroll Specialty: Ordering Physician: Mey BUTLER
[2018-08-12 01:00] VITALS: BP_SYST 127
--- NOTE | 2018-08-12 01:42 | NUR ---
NOTE PATIENT IS SLEEPING, STABLE, NO SIGNS OF RESPIRATORY DISTRESS. CALL LIGHT WITHIN REACH. BED IS LOCKED, ALARMED, AND AT THE LOWEST LEVEL.
--- NOTE | 2018-08-12 02:31 | NUR ---
NOTE PATIENT IS SLEEPING, STABLE, NO SIGNS OF RESPIRATORY DISTRESS. CALL LIGHT WITHIN REACH. BED IS LOCKED, ALARMED, AND AT THE LOWEST LEVEL.
--- NOTE | 2018-08-12 02:50 | NUR ---
Received Endorsement of Patient Received endorsement of patient. Patient resting in bed with eyes closed, easily aroused. Patient denies any acute distress or pain at this time. Breathing is even and unlabored. IV site patent/clean/dry. Dressing clean/dry/intact. Denies any needs. Call light in hand, fall precautions in place.
--- NOTE | 2018-08-12 02:52 | NUR ---
CLOSING NOTE PATIENT IS SLEEPING, STABLE, NO SIGNS OF RESPIRATORY DISTRESS. CALL LIGHT IS WITHIN REACH. BED IS LOCKED, ALARMED, AND AT THE LOWEST LEVEL. BEDSIDE REPORT GIVEN TO EVERT BOWIE FOR THE REMAINDER OF THE CUSTOM CAR BUILDER. ALL NEEDS HAVE BEEN MET, FALL AND SAFETY PRECAUTIONS HAVE BEEN IN PLACE THROUGHOUT THE SHIFT.
--- NOTE | 2018-08-12 05:00 | NUR ---
Nursing Notes Patient resting in bed, awake, shot polisher and inspector at bedside. Patient denies any acute distress or pain at this time. Breathing is even and unlabored. Patient denies any needs. Call light in hand, fall precautions in place. Will continue to monitor.
[2018-08-12] MEDS: INSULIN REGULAR, HUMAN 100 UNITS/ML, 10 ML VIAL (novoLIN R) SUBCUT PRN ×3 (06:22→22:33)
[2018-08-12] MEDS: OMEPRAZOLE 20 MG CAPSULE.DR (PriLOSEC) PO SCH (06:32)
--- NOTE | 2018-08-12 06:47 | NUR ---
Closing Notes Patient resting in bed with eyes closed, easily aroused. Patient denies any acute distress or pain at this time. Assisted patient up to chair. Breathing is even and unlabored. IV site patent/clean/dry, no S/S infection/infiltration noted. Needs addressed throughout shift. Call light in hand, fall precautions in place. Will continue to monitor for changes and safety, and endorse all patient care/needs to oncoming nurse.
[2018-08-12 07:02] LABS: ALBUMIN 2.6 g/dL (3.4-4.8); C-REACTIVE PROTEIN QUANT 1.4 mg/dL (0-0.5); CALCIUM 8.6 mg/dL (8.4-11.0); CREATININE 1.47 mg/dL (0.55-1.30); PHOSPHORUS 3.4 mg/dL (2.7-4.5); POTASSIUM 3.6 mmol/L (3.5-5.1); TOTAL BILIRUBIN 0.3 mg/dL (0.0-1.0)
[2018-08-12 07:10] LABS: BASOPHILS # (AUTO) 0.1 K/uL (0.0-0.2); BASOPHILS % (AUTO) 0.7 % (0.0-2.0); EOSINOPHILS % (AUTO) 0.3 % (0.0-4.0); HEMOGLOBIN 9.7 g/dL (14.0-18.0); LYMPHOCYTES # (AUTO) 0.7 K/uL (1.0-5.5); MEAN CORPUSCULAR HEMOGLOBIN 27 pg (27-31); MEAN CORPUSCULAR HGB CONC 32 % (32-36); MEAN CORPUSCULAR VOLUME 84 fL (79.0-98.0); MONOCYTES # (AUTO) 0.8 K/uL (0.0-1.0); NEUTROPHILS # (AUTO) 10.5 K/uL (1.8-7.7); PLATELET COUNT (AUTO) 407 K/uL (130-430); RED BLOOD CELL COUNT(AUTO) 3.59 MIL/uL (4.2-6.2); RED CELL DISTRIBUTION WIDTH 12.8 % (9.0-15.0); WHITE BLOOD COUNT (AUTO) 12.1 K/uL (4.8-10.8)
--- NOTE | 2018-08-12 07:25 | NUR ---
AM NOTES: PATIENT SITTING ON THE CHAIR DURING ROUNDS. BEDSIDE REPORT GIVEN BY NIGHT NURSE JAMIR. ON O2 2L/NC GOOD SATURATION. COUGHING ONCE IN A WHILE. ARRON LIGHT WITH IN REACH. BED LOCKED AT LOWEST POSITION. NO NEEDS THIS TIME. STABLE.
[2018-08-12 08:30] VITALS: BP_SYST 133
[2018-08-12] MEDS: VANCOMYCIN HCL 250 MG CAPSULE PO SCH ×2 (08:47→20:45)
[2018-08-12] MEDS: DOXYCYCLINE HYCLATE 100 MG CAPSULE PO SCH ×2 (08:48→20:45)
[2018-08-12] MEDS: MINERAL OIL 30 ML UDC PO SCH (08:48)
[2018-08-12] MEDS: ASPIRIN 81 MG TAB.CHEW PO SCH (08:48)
[2018-08-12] MEDS: CILOSTAZOL 50 MG TABLET (PLETAL) PO SCH ×2 (08:48→20:45)
[2018-08-12] MEDS: ASCORBIC ACID 500 MG TABLET PO SCH (08:49)
[2018-08-12] MEDS: MULTIVITAMINS TAB 1 TABLET PO SCH (08:49)
[2018-08-12] MEDS: BALSAM PERU/CASTOR OIL 60 GM OINT...G. TP SCH (08:58)
[2018-08-12] MEDS ORDERED: NON-FORMULARY MEDICATION (Arginine/Ascorbate Sod/Vite AC (Arginaid Powder) 1 EACH) PO SCH (09:00)
--- NOTE | 2018-08-12 09:00 | NUR ---
MEDS: DUE PO MEDS GIVEN.TOLERATED WELL.
[2018-08-12] MEDS ORDERED: POTASSIUM CHLORIDE 20 MEQ TAB.PRT.SR PO ONE (10:00)
[2018-08-12] MEDS ORDERED: CARVEDILOL 6.25 MG TABLET (COREG) PO ONE (10:30)
[2018-08-12 10:38] LABS: ERYTHROCYTE SEDIMENTATION RATE 51 MM/HR (0-15)
--- NOTE | 2018-08-12 11:01 | NUR ---
CONSULT UROLOGY SCROTAL EDEMA DR SHAWNEE ALMONTE [phone] DR ALMONTE CALLED BACK AND DOES NOT ACCEPT PATIENT'S INSURANCE
--- NOTE | 2018-08-12 11:12 | NUR ---
URO CAN'T SEE Pt: NO ANY UROLOGIST CAN SEE THE PATIENT FOR SCROTAL EDEMA DUE TO THE INSURANCE. DR. BUTLER Y IS INFORMED, AND HE STATES THAT IT'S OK Pt DOES NOT NEED A UROLOGIST BECAUSE THE EDEMA IT'S NOT FROM URO PROBLEM.
[2018-08-12] MEDS ORDERED: FUROSEMIDE 40 MG/4 ML VIAL IVP ONE (11:15)
[2018-08-12] MEDS ORDERED: LOSARTAN POTASSIUM 25 MG TABLET PO ONE (11:15)
[2018-08-12] MEDS: IPRATROPIUM/ALBUTEROL SULFATE 3 ML AMPUL.NEB (DUONEB) INH PRN (11:20)
--- NOTE | 2018-08-12 11:40 | NUR ---
BLOOD SUGAR: BLOOD SUGAR TAKEN,WITH INSULIN COVERAGE GIVEN PER SLIDING SCALE. NO PROBLEM.
[2018-08-12 12:36] VITALS: BP_SYST 146
[2018-08-12] MEDS: ALBUTEROL SULFATE 0.083% 2.5 MG/3 ML VIAL.NEB INH SCH ×2 (13:22→19:44)
[2018-08-12] MEDS: IPRATROPIUM BROM 0.5 MG/2.5 ML VIAL.NEB (ATROVENT) INH SCH ×2 (13:22→19:44)
--- NOTE | 2018-08-12 14:30 | NUR ---
ABDOMINAL US: ABDOMINAL US DONE AT THE BEDSIDE.
--- NOTE | 2018-08-12 14:45 | NUR ---
WOUND EVALUATION: Late note for 1445 secondary to patient care. Wound Consult received from Dr. Fredy Marquez. Thank you, Dr. Marquez, for the consult. Patient received in a Darion Bed with an IsoFlex LEDA mattress with low air loss therapy initiated, awake, alert, and oriented x 4. Patient is able to turn in bed independently. Brock Score is an 18. Past Medical History: Hypertension, Diabetes Mellitus, Appendectomy. Scrotal edema present. Recent Labs: WBC 12.1, RBC 3.59, hemoglobin 9.7, hematocrit 30.0, ESR 51, sodium 131, chloride 95, BUN 23, creatinine 1.47, GFR 51, glucose 272, alkaline phosphatase 126, albumin 2.6. Microbiology: MRSA screen results negative. Blood culture results 2 in progress. Intrinsic factors that delay wound healing: Diabetes mellitus. Extrinsic factors that delay wound healing: Decreased mobility. Wound Assessment: 1. Left lateral fifth metatarsal head: Diabetic/neuropathic ulcer, Grade 1, present on admission. Wound bed has 35% yellow tissue, 60% dull pink tissue, 5% black tissue. No odor, no drainage. Periwound callused, and surrounding tissue has brown-colored skin. Wound measures 0.9 cm x 1.2 cm. Recommend: Cleanse wound with normal saline. Put moisture barrier cream onto periwound and surrounding tissue. Apply Venelex ointment onto wound bed. Cover with foam dressing. Perform wound care daily, and as needed for dressing soiling or dislodgment. 2. Left great toe, distal aspect: Ischemic tissue, present on admission. Wound bed has 100% light purple eschar. No odor, no drainage. Periwound intact. Wound measures 3.5 cm x 1.4 cm. Recommend: No dressing needed. Continue to monitor site every shift for worsening condition. Wound care nurse if site opens or drains. 3. Left medial proximal calf: Chronic surgical site/scar tissue/approximated wound (femoropopliteal bypass), present on admission. Wound bed has 60% light purple tissue, 40% black eschar. Odor, no drainage. Periwound surrounding tissue has dry flaky skin. Wound measures 7.7 cm x 1.1 cm. Recommend: Cleanse site with normal saline. Pat dry. Cover site with foam dressing. Perform site care daily, and as needed for dressing soiling or dislodgment. Also recommend: Encourage and assist patient as needed with repositioning every 2 hours with pillow support and off-load pressure areas with pillows for pressure re-distribution. Offload, elevate and float bilateral heels with pillows. Perform skin care and monitor skin integrity Q shift.
--- NOTE | 2018-08-12 15:01 | NUR ---
CONSULT NEPHROLOGY EUGENIA DR VENEGAS [phone] DR HUTCHINS TENT WORKER S/W [facility] OFFICE
[2018-08-12 17:02] VITALS: BP_SYST 122
[2018-08-12] MEDS: SIMVASTATIN 20 MG TABLET PO SCH (17:16)
--- NOTE | 2018-08-12 17:17 | NUR ---
BLOOD SUGAR: BLOOD SUGAR TAKEN,NO INSULIN COVERAGE GIVEN PER SLIDING SCALE.
--- NOTE | 2018-08-12 19:25 | NUR ---
END OF SHIFT: BEDSIDE REPORT GIVEN TO NIGHT NURSE DAWN. DYSPNEA UPON EXERTION,PUT BACK O2 2L/NC. STABLE THIS TIME. CALL LIGHT WITH IN REACH. CONTINUE TO MONITOR.
[2018-08-12 20:00] VITALS: BP_SYST 143
--- NOTE | 2018-08-12 20:00 | NUR ---
Initial Note Received report from day shift RN. Awake, alert & oriented x 4. Denies pain or discomfort. C/O sob. On room air, placed nasal canula back in place with O2 at @ 2L. On fluid restriction. Educated on fluid limit for the rest of night. Verbalized understanding. Right forearm IV access intact & patent. Instructed on use of call light & to notify staff if in need of assistance. Verbalized understanding. Bed in low, locked position. Bed alarm on. Call light within reach.
[2018-08-12] MEDS: LEVOFLOXACIN 500 MG/D5W 100 ML IV SCH (20:41)
[2018-08-12] MEDS: FUROSEMIDE 40 MG/4 ML VIAL IVP SCH (20:44)
--- NOTE | 2018-08-12 20:59 | NUR ---
Medication Due medications administered. Tolerated PO meds well.
--- NOTE | 2018-08-12 22:47 | NUR ---
Blood sugar Fingerstick checked = 181 mg/dL. No s/s of hypo/hyperglycemia. 2 units regular insulin given.
--- NOTE | 2018-08-12 22:48 | NUR ---
Fluid restriction Patient asking for water. Instructed on fluid restriction and reason for it. Verbalized understanding. 150 cc water given and instructed will not have anymore for tonight. Verbalized understanding.
[2018-08-13] MEDS: ALBUTEROL SULFATE 0.083% 2.5 MG/3 ML VIAL.NEB INH SCH ×4 (00:57→19:51)
[2018-08-13] MEDS: IPRATROPIUM BROM 0.5 MG/2.5 ML VIAL.NEB (ATROVENT) INH SCH ×4 (00:58→19:51)
--- NOTE | 2018-08-13 03:44 | NUR ---
Rounds Resting quietly with eyes closed, no apparent distress noted. No c/o pain or discomfort. On O2 2l via nasal canula. Call light within reach. Fall precautions in place.
--- NOTE | 2018-08-13 05:40 | NUR ---
Void Sat up at side of bed to use urinal to void. No shortness of breath noted.
[2018-08-13 06:27] LABS: BASOPHILS % (AUTO) 0.5 % (0.0-2.0); EOSINOPHILS # (AUTO) 0.1 K/uL (0.0-0.4); EOSINOPHILS % (AUTO) 1.3 % (0.0-4.0); HEMATOCRIT 30.8 % (36-54); LYMPHOCYTES # (AUTO) 0.9 K/uL (1.0-5.5); LYMPHOCYTES % (AUTO) 9.4 % (20.5-51.5); MEAN CORPUSCULAR HEMOGLOBIN 27 pg (27-31); MEAN CORPUSCULAR HGB CONC 33 % (32-36); MEAN CORPUSCULAR VOLUME 83 fL (79.0-98.0); MONOCYTES # (AUTO) 0.6 K/uL (0.0-1.0); MONOCYTES % (AUTO) 6.7 % (1.7-9.3); NEUTROPHILS # (AUTO) 8.1 K/uL (1.8-7.7); NEUTROPHILS % (AUTO) 82.1 % (40.0-70.0); PLATELET COUNT (AUTO) 420 K/uL (130-430); WHITE BLOOD COUNT (AUTO) 9.7 K/uL (4.8-10.8)
[2018-08-13] MEDS: OMEPRAZOLE 20 MG CAPSULE.DR (PriLOSEC) PO SCH (06:29)
--- NOTE | 2018-08-13 06:30 | NUR ---
Wound Care Wound care done to left calf & thigh wound. Cleansed with NS and patted dry. Covered with optifoam dressings. Tolerated well.
[2018-08-13 06:47] LABS: CALCIUM 8.7 mg/dL (8.4-11.0); CREATININE 1.44 mg/dL (0.55-1.30); POTASSIUM 3.2 mmol/L (3.5-5.1)
[2018-08-13 06:48] LABS: ALBUMIN 2.9 g/dL (3.4-4.8); C-REACTIVE PROTEIN QUANT 1.3 mg/dL (0-0.5); TOTAL BILIRUBIN 0.5 mg/dL (0.0-1.0)
--- NOTE | 2018-08-13 07:00 | NUR ---
Closing Note Resting quietly, no apparent distress. No shortness of breath noted. Remains on O2 2l via nasal canula. All needs attended to. Call light within reach. Bed in low, locked position with bed alarm on.
--- NOTE | 2018-08-13 07:57 | NUR ---
Initial notes: Patient on bed awake, alert and oriented. Stable. I.V. access patent. Discussed plan of care. Report received at bedside from EVERT Galvez. grip.
[2018-08-13 08:00] VITALS: BP_SYST 142
[2018-08-13] MEDS: MINERAL OIL 30 ML UDC PO SCH (08:55)
[2018-08-13] MEDS: FUROSEMIDE 40 MG/4 ML VIAL IVP SCH (08:56)
[2018-08-13] MEDS: DOXYCYCLINE HYCLATE 100 MG CAPSULE PO SCH ×2 (08:57→21:20)
[2018-08-13] MEDS: ASPIRIN 81 MG TAB.CHEW PO SCH (08:57)
[2018-08-13] MEDS: VANCOMYCIN HCL 250 MG CAPSULE PO SCH ×2 (08:57→21:20)
[2018-08-13] MEDS: CILOSTAZOL 50 MG TABLET (PLETAL) PO SCH ×2 (08:59→21:20)
[2018-08-13] MEDS: ASCORBIC ACID 500 MG TABLET PO SCH (08:59)
[2018-08-13] MEDS: LOSARTAN POTASSIUM 25 MG TABLET PO SCH (08:59)
[2018-08-13] MEDS: SPIRONOLACTONE 25 MG TABLET (ALDACTONE) PO SCH ×2 (09:00→21:20)
[2018-08-13] MEDS: MULTIVITAMINS TAB 1 TABLET PO SCH (09:00)
--- NOTE | 2018-08-13 09:20 | NUR ---
rounds: patient sitting on the chair. Observed difficulty breathing. Applied oxygen @2l. Breathing tx was given earlier.
[2018-08-13] MEDS ORDERED: POTASSIUM CHLORIDE 20 MEQ TAB.PRT.SR PO ONE (09:45)
[2018-08-13] MEDS ORDERED: methylPREDNISolone SOD SUCC/PF 62.5 MG/ML VIAL IVP ONE (10:00)
[2018-08-13 10:18] LABS: ERYTHROCYTE SEDIMENTATION RATE 54 MM/HR (0-15)
[2018-08-13] MEDS: BALSAM PERU/CASTOR OIL 60 GM OINT...G. TP SCH (10:54)
[2018-08-13] MEDS: FUROSEMIDE 100 MG in D5W 90 ML IV SCH (11:12)
[2018-08-13] MEDS: INSULIN REGULAR, HUMAN 100 UNITS/ML, 10 ML VIAL (novoLIN R) SUBCUT PRN ×3 (11:29→21:31)
--- NOTE | 2018-08-13 11:38 | NUR ---
rounds: patient sitting on the chair. started the lasix and educated patient of urine frequency.
[2018-08-13 13:02] VITALS: BP_SYST 138
--- NOTE | 2018-08-13 14:27 | NUR ---
Sara rounds: Seen by Dr. Carpenter with order.
--- NOTE | 2018-08-13 14:27 | NUR ---
IV RE-INSERTION: Complaining of pain to IV site. Restarted on R thumb. Successful after 3 attempts. Resumed current IVF of lasix drip and regulated @ 3cc per hour. Will observe for any signs of infiltration.
[2018-08-13] MEDS: PSYLLIUM HUSK 1 PKT PACKET PO SCH ×2 (15:02→21:20)
[2018-08-13 16:00] VITALS: BP_SYST 137
[2018-08-13 16:27] VITALS: BP_SYST 126
--- NOTE | 2018-08-13 16:31 | NUR ---
Sara rounds: Seen by Dr. Gil and talk to patient.
[2018-08-13] MEDS: SIMVASTATIN 20 MG TABLET PO SCH (17:00)
--- NOTE | 2018-08-13 17:42 | NUR ---
rounds: patient sitting at the chair, feet elevated. No distress noted.
--- NOTE | 2018-08-13 18:04 | NUR ---
Closing notes: Patient sitting on the chair. Stable. Needs attended. Safety measures in placed. Call light within reach. Report will be given to life skills worker.
[2018-08-13 19:15] VITALS: BP_SYST 116
--- NOTE | 2018-08-13 19:15 | NUR ---
OPENING NOTE RECEIVED ENDORSEMENT REPORT FROM DAY SHIFT NURSE JASSON AT BEDSIDE. PT IS AOX4, SPEAKS TAGALOG, UNDERSTANDS SOME MONGOLIAN. PT RESTING IN BED WITH EYES OPEN. CHEST RISE EVEN AND UNLABORED, NO DISTRESS NOTED, NO SOB NOTED. NO COMPLAINTS OF PAIN AT THIS TIME. IV ON RIGHT FA 22 G SL AND RIGHT THUMB 24 G IVF INFUSING WELL. PT'S IV'S CLEAN, DRY AND INTACT. PT'S SKIN NOT INTACT, DRESSINGS DRY, CLEAN AND INTACT. PT ORIENTED TO HOSPITAL ROOM. PT VERBALIZED UNDERSTANDING, INSTRUCTED PT HOW TO USE CALL LIGHT AND ROOM PHONE AND INSTRUCTED PT TO CALL FOR ASSISTANCE, PT VERBALIZED UNDERSTANDING. SAFETY MEASURES IN PLACE CALL LIGHT IN PLACE, ROOM PHONE IN PLACE, BED ALARM ON, BED WHEELS LOCKED, BED IN LOWEST POSITION, BED RAILS UP X2, BEDSIDE TABLE WITHIN REACH. NO OTHER NEEDS AT THIS TIME. WILL MONITOR PT AND CONTINUE POC.
--- NOTE | 2018-08-13 20:25 | NUR ---
RN ROUNDS PT RESTING IN BED WITH EYES OPEN. CHEST RISE EVEN AND UNLABORED, NO DISTRESS NOTED, NO SOB NOTED. NO COMPLAINTS OF PAIN AT THIS TIME. IVF INFUSING WELL. VITAL SIGNS WNL. NO OTHER NEEDS AT THIS TIME. SAFETY MEASURES IN PLACE CALL LIGHT IN PLACE, ROOM PHONE IN PLACE, BED ALARM ON, BED WHEELS LOCKED, BED IN LOWEST POSITION, BED RAILS UP X2, BEDSIDE TABLE WITHIN REACH. WILL MONITOR PT AND CONTINUE POC.
[2018-08-13] MEDS: LEVOFLOXACIN 500 MG/D5W 100 ML IV SCH (21:16)
--- NOTE | 2018-08-13 21:27 | NUR ---
RN ROUNDS PT RESTING IN BED WITH EYES OPEN. CHEST RISE EVEN AND UNLABORED, NO DISTRESS NOTED, NO SOB NOTED. NO COMPLAINTS OF PAIN AT THIS TIME. IVF INFUSING WELL. PT O ON O2 2 L VIA NC, PT TOLERATING WELL. VITAL SIGNS WNL. SCHEDULED MEDICATIONS ADMINISTERED ORDERED, PT TOLERATED WELL. BS 313, 8 UN NOVOLIN R ADMINISTERED SUB Q PER SLIDING SCALE PROTOCOL. PT TOLERATED WELL. NO OTHER NEEDS AT THIS TIME. SAFETY MEASURES IN PLACE CALL LIGHT IN PLACE, ROOM PHONE IN PLACE, BED ALARM ON, BED WHEELS LOCKED, BED IN LOWEST POSITION, BED RAILS UP X2, BEDSIDE TABLE WITHIN REACH. WILL MONITOR PT AND CONTINUE POC.
[2018-08-13] MEDS: HEPARIN SODIUM,PORCINE 5000 UNITS/ML VIAL SUBCUT SCH (21:30)
[2018-08-13 23:42] VITALS: BP_SYST 126
--- NOTE | 2018-08-13 23:56 | NUR ---
RN ROUNDS PT RESTING IN BED WITH EYES OPEN. CHEST RISE EVEN AND UNLABORED, NO DISTRESS NOTED, NO SOB NOTED. NO COMPLAINTS OF PAIN AT THIS TIME. IVF INFUSING WELL. PT TOLERATING O2 WELL. SAFETY MEASURES IN PLACE CALL LIGHT IN PLACE, ROOM PHONE IN PLACE, BED ALARM ON, BED WHEELS LOCKED, BED IN LOWEST POSITION, BED RAILS UP X2, BEDSIDE TABLE WITHIN REACH. NO OTHER NEEDS AT THIS TIME. WILL MONITOR PT AND CONTINUE POC.
[2018-08-14] MEDS: IPRATROPIUM BROM 0.5 MG/2.5 ML VIAL.NEB (ATROVENT) INH SCH ×4 (00:57→19:30)
[2018-08-14] MEDS: ALBUTEROL SULFATE 0.083% 2.5 MG/3 ML VIAL.NEB INH SCH ×4 (00:57→19:30)
--- NOTE | 2018-08-14 02:40 | NUR ---
RN ROUNDS PT RESTING IN BED WITH EYES CLOSED. CHEST RISE EVEN AND UNLABORED, NO DISTRESS NOTED, NO SOB NOTED. NO COMPLAINTS OR S/S OF PAIN AT THIS TIME. IVF INFUSING WELL. SAFETY MEASURES IN PLACE CALL LIGHT IN PLACE, ROOM PHONE IN PLACE, BED ALARM ON, BED WHEELS LOCKED, BED IN LOWEST POSITION, BED RAILS UP X2, BEDSIDE TABLE WITHIN REACH. NO OTHER NEEDS AT THIS TIME. WILL MONITOR PT AND CONTINUE POC.
--- NOTE | 2018-08-14 04:39 | NUR ---
URINE COLLECTED AND SUBMITTED TO LAB FOR [facility]
--- NOTE | 2018-08-14 05:16 | NUR ---
RN ROUNDS PT RESTING IN BED WITH EYES CLOSED. CHEST RISE EVEN AND UNLABORED, NO DISTRESS NOTED, NO SOB NOTED. NO S/S OF PAIN AT THIS TIME. IVF INFUSING WELL. SAFETY MEASURES IN PLACE CALL LIGHT IN PLACE, ROOM PHONE IN PLACE, BED ALARM ON, BED WHEELS LOCKED, BED IN LOWEST POSITION, BED RAILS UP X2, BEDSIDE TABLE WITHIN REACH. NO OTHER NEEDS AT THIS TIME. WILL MONITOR PT AND CONTINUE POC.
[2018-08-14 05:22] LABS: BILIRUBIN,URINE NEGATIVE (NEGATIVE); CLARITY/URINE CLEAR (CLEAR); COLOR,URINE YELLOW (YELLOW); GLUCOSE,URINE 2+ (NEGATIVE); KETONES,URINE NEGATIVE (NEGATIVE); LEUKOCYTE ESTERASE ,URINE NEGATIVE (NEGATIVE); NITRITE, URINE NEGATIVE (NEGATIVE); PROTEIN URINE 2+ (NEGATIVE); UROBILINOGEN,URINE 0.2 (0.2-1.0)
[2018-08-14 05:25] LABS: BLOOD, URINE TRACE (NEGATIVE)
[2018-08-14 05:33] LABS: BACTERIA,URINE FEW /HPF (None Seen); WBC,URINE 0-3 /HPF (0-3)
[2018-08-14 05:34] LABS: MUCUS,URINE None Seen /LPF (None Seen); YEAST,URINE None Seen /HPF (None Seen)
[2018-08-14 06:32] LABS: C-REACTIVE PROTEIN QUANT 0.9 mg/dL (0-0.5); CALCIUM 8.8 mg/dL (8.4-11.0); CREATININE 1.53 mg/dL (0.55-1.30); PHOSPHORUS 3.7 mg/dL (2.7-4.5); POTASSIUM 3.5 mmol/L (3.5-5.1)
[2018-08-14] MEDS: OMEPRAZOLE 20 MG CAPSULE.DR (PriLOSEC) PO SCH (06:39)
[2018-08-14] MEDS: INSULIN REGULAR, HUMAN 100 UNITS/ML, 10 ML VIAL (novoLIN R) SUBCUT PRN ×3 (06:45→22:52)
--- NOTE | 2018-08-14 06:46 | NUR ---
BS 207, 4 UNITS NOVOLIN R ADMINISTERED
[2018-08-14 06:52] LABS: BASOPHILS % (AUTO) 0.1 % (0.0-2.0); HEMOGLOBIN 9.3 g/dL (14.0-18.0); LYMPHOCYTES # (AUTO) 0.5 K/uL (1.0-5.5); LYMPHOCYTES % (AUTO) 7.8 % (20.5-51.5); MEAN CORPUSCULAR HEMOGLOBIN 26 pg (27-31); MEAN CORPUSCULAR HGB CONC 32 % (32-36); MEAN CORPUSCULAR VOLUME 81 fL (79.0-98.0); MONOCYTES # (AUTO) 0.5 K/uL (0.0-1.0); MONOCYTES % (AUTO) 7.7 % (1.7-9.3); NEUTROPHILS # (AUTO) 5.3 K/uL (1.8-7.7); NEUTROPHILS % (AUTO) 84.4 % (40.0-70.0); PLATELET COUNT (AUTO) 439 K/uL (130-430); RED BLOOD CELL COUNT(AUTO) 3.57 MIL/uL (4.2-6.2); RED CELL DISTRIBUTION WIDTH 12.9 % (9.0-15.0); WHITE BLOOD COUNT (AUTO) 6.3 K/uL (4.8-10.8)
--- NOTE | 2018-08-14 07:12 | NUR ---
CLOSING NOTE ENDORSED PT REPORT TO DAY SHIFT NURSE JASSON AT BEDSIDE. PT IS AOX4. PT RESTING IN BED WITH EYES OPEN. CHEST RISE EVEN AND UNLABORED, NO DISTRESS NOTED, NO SOB NOTED. NO COMPLAINTS OF PAIN THROUGHOUT SHIFT. ALL SCHEDULED MEDICATIONS ADMINISTERED SCHEDULED, PT TOLERATED WELL. ALL NEEDS MET THROUGHOUT SHIFT. SAFETY MEASURES IN PLACE CALL LIGHT IN PLACE, ROOM PHONE IN PLACE, BED ALARM ON, BED WHEELS LOCKED, BED IN LOWEST POSITION, BED RAILS UP X2, BEDSIDE TABLE WITHIN REACH. NO OTHER NEEDS AT THIS TIME. WILL MONITOR PT AND CONTINUE POC.
--- NOTE | 2018-08-14 07:22 | NUR ---
Initial notes: Patient on bed awake, alert and oriented. Stable. I.V. access patent. Safety measures in placed. Call light within reach. Report received from EVERT Tellez.
[2018-08-14 07:59] VITALS: BP_SYST 128
[2018-08-14 08:53] LABS: ERYTHROCYTE SEDIMENTATION RATE 45 MM/HR (0-15)
[2018-08-14] MEDS ORDERED: POTASSIUM CHLORIDE 20 MEQ TAB.PRT.SR PO ONE (09:30)
[2018-08-14] MEDS: PSYLLIUM HUSK 1 PKT PACKET PO SCH ×3 (09:33→21:36)
[2018-08-14] MEDS: DOXYCYCLINE HYCLATE 100 MG CAPSULE PO SCH ×2 (09:34→21:37)
[2018-08-14] MEDS: VANCOMYCIN HCL 250 MG CAPSULE PO SCH ×2 (09:34→21:37)
[2018-08-14] MEDS: ASPIRIN 81 MG TAB.CHEW PO SCH (09:35)
[2018-08-14] MEDS: ASCORBIC ACID 500 MG TABLET PO SCH (09:35)
[2018-08-14] MEDS: SPIRONOLACTONE 25 MG TABLET (ALDACTONE) PO SCH ×2 (09:35→21:37)
[2018-08-14] MEDS: MULTIVITAMINS TAB 1 TABLET PO SCH (09:35)
[2018-08-14] MEDS: LOSARTAN POTASSIUM 25 MG TABLET PO SCH (09:35)
[2018-08-14] MEDS: CILOSTAZOL 50 MG TABLET (PLETAL) PO SCH ×2 (09:36→21:37)
[2018-08-14] MEDS: BALSAM PERU/CASTOR OIL 60 GM OINT...G. TP SCH (09:36)
[2018-08-14] MEDS: HEPARIN SODIUM,PORCINE 5000 UNITS/ML VIAL SUBCUT SCH ×2 (09:48→21:38)
--- NOTE | 2018-08-14 09:50 | NUR ---
rounds: patient sitting on the chair. watching tv. no distress noted. medication given and compliant.
--- NOTE | 2018-08-14 12:24 | NUR ---
rounds: patient sitting on chair. no distress noted.
[2018-08-14 12:36] VITALS: BP_SYST 129
[2018-08-14] MEDS ORDERED: guaiFENesin/DEXTROMETHORPHAN 118 ML PO PRN (13:00)
[2018-08-14] MEDS: FUROSEMIDE 100 MG in D5W 90 ML IV SCH (15:29)
[2018-08-14 15:30] VITALS: BP_SYST 126
[2018-08-14] MEDS: guaiFENesin/DEXTROMETHORPHAN 10 ML UDC PO PRN (15:31)
--- NOTE | 2018-08-14 15:35 | NUR ---
rounds: Seen by Tactical Debriefer and talk to the patient.
--- NOTE | 2018-08-14 15:51 | NUR ---
Dietitian Recommendations * Recommend CCHO, cardiac diet, Fluid Restriction 1500 ml/day LP, RD Please refer to Nutrition Assessment for details.
--- NOTE | 2018-08-14 16:26 | NUR ---
Wound care: patient sitting on chair. Cleaned and changed dressing. L Inner thigh dry and clean. Applied band aid. Surgery site dry scab forming and dry. Left foot dry and scab. No drainage. Applied venelex and foam dressing.
[2018-08-14 16:49] VITALS: BP_SYST 127
[2018-08-14] MEDS: SIMVASTATIN 20 MG TABLET PO SCH (18:48)
--- NOTE | 2018-08-14 19:00 | NUR ---
closing notes: Patient sitting on bed. Stable. Needs attended. Call light within reach. Report given to EVERT Tellez.
[2018-08-14 19:05] VITALS: BP_SYST 127
--- NOTE | 2018-08-14 19:10 | NUR ---
OPENING NOTE RECEIVED ENDORSEMENT REPORT FROM DAY SHIFT NURSE JASOSN AT BEDSIDE. PT IS AOX4, SPEAKS TAGALOG, UNDERSTANDS SOME KHMER. PT RESTING IN CHAIR AT BEDSIDE WHILE WATCHING TELEVISION. CHEST RISE EVEN AND UNLABORED, NO DISTRESS NOTED, NO SOB NOTED. NO COMPLAINTS OF PAIN AT THIS TIME. IV ON RIGHT FA 22 G SL AND RIGHT FA 22 G IVF INFUSING WELL. PT'S IV'S CLEAN, DRY AND INTACT. PT'S SKIN NOT INTACT, ALL DRESSINGS DRY, CLEAN AND INTACT. DRESSINGS CHANGED DURING DAY SHIFT, WILL MONITOR DRESSINGS. PT ORIENTED TO HOSPITAL ROOM. PT VERBALIZED UNDERSTANDING, INSTRUCTED PT HOW TO USE CALL LIGHT AND ROOM PHONE AND INSTRUCTED PT TO CALL FOR ASSISTANCE, PT VERBALIZED UNDERSTANDING. SAFETY MEASURES IN PLACE CALL LIGHT IN PLACE, ROOM PHONE IN PLACE, BED ALARM ON, BED WHEELS LOCKED, BED IN LOWEST POSITION, BED RAILS UP X2, BEDSIDE TABLE WITHIN REACH. NO OTHER NEEDS AT THIS TIME. WILL MONITOR PT AND CONTINUE POC.
[2018-08-14] MEDS: LEVOFLOXACIN 500 MG/D5W 100 ML IV SCH (21:36)
--- NOTE | 2018-08-14 21:46 | NUR ---
RN ROUNDS PT RESTING IN BED WITH EYES OPEN. CHEST RISE EVEN AND UNLABORED, NO DISTRESS NOTED, NO SOB NOTED. NO COMPLAINTS OF PAIN AT THIS TIME. IVF INFUSING WELL. PT ON O2 2 L VIA NC, PT TOLERATING WELL. VITAL SIGNS WNL. SCHEDULED MEDICATIONS ADMINISTERED ORDERED, PT TOLERATED WELL. NO OTHER NEEDS AT THIS TIME. SAFETY MEASURES IN PLACE CALL LIGHT IN PLACE, ROOM PHONE IN PLACE, BED ALARM ON, BED WHEELS LOCKED, BED IN LOWEST POSITION, BED RAILS UP X2, BEDSIDE TABLE WITHIN REACH. WILL MONITOR PT AND CONTINUE POC.
--- NOTE | 2018-08-14 21:46 | NUR ---
BS 228, 4 UNITS OF NOVOLIN R ADMINISTERED ORDERED PER SLIDING SCALE
--- NOTE | 2018-08-14 23:40 | NUR ---
RN ROUNDS PT RESTING IN BED WITH EYES CLOSED. CHEST RISE EVEN AND UNLABORED, NO DISTRESS NOTED, NO SOB NOTED. NO S/S OF PAIN NOTED AT THIS TIME. IVF INFUSING WELL. PT TOLERATING O2 WELL. SAFETY MEASURES IN PLACE CALL LIGHT IN PLACE, ROOM PHONE IN PLACE, BED ALARM ON, BED WHEELS LOCKED, BED IN LOWEST POSITION, BED RAILS UP X2, BEDSIDE TABLE WITHIN REACH. NO OTHER NEEDS AT THIS TIME. WILL MONITOR PT AND CONTINUE POC.
[2018-08-14 23:47] VITALS: BP_SYST 133
[2018-08-15] MEDS: IPRATROPIUM BROM 0.5 MG/2.5 ML VIAL.NEB (ATROVENT) INH SCH ×4 (00:41→20:33)
[2018-08-15] MEDS: ALBUTEROL SULFATE 0.083% 2.5 MG/3 ML VIAL.NEB INH SCH ×4 (00:41→20:33)
--- NOTE | 2018-08-15 02:53 | NUR ---
RN ROUNDS PT RESTING IN BED WITH EYES CLOSED. CHEST RISE EVEN AND UNLABORED, NO DISTRESS NOTED, NO SOB NOTED. NO S/S OF PAIN NOTED. IVF INFUSING WELL. PT TOLERATING O2 WELL. SAFETY MEASURES IN PLACE CALL LIGHT IN PLACE, ROOM PHONE IN PLACE, BED ALARM ON, BED WHEELS LOCKED, BED IN LOWEST POSITION, BED RAILS UP X2, BEDSIDE TABLE WITHIN REACH. NO OTHER NEEDS AT THIS TIME. WILL MONITOR PT AND CONTINUE POC.
--- NOTE | 2018-08-15 04:24 | NUR ---
RN ROUNDS PT RESTING IN BED WITH EYES CLOSED. CHEST RISE EVEN AND UNLABORED, NO DISTRESS NOTED, NO SOB NOTED. NO COMPLAINTS OF PAIN AT THIS TIME. IVF INFUSING WELL. PT TOLERATING O2 WELL. SAFETY MEASURES IN PLACE CALL LIGHT IN PLACE, ROOM PHONE IN PLACE, BED ALARM ON, BED WHEELS LOCKED, BED IN LOWEST POSITION, BED RAILS UP X2, BEDSIDE TABLE WITHIN REACH. NO OTHER NEEDS AT THIS TIME. WILL MONITOR PT AND CONTINUE POC.
[2018-08-15 06:48] LABS: BASOPHILS # (AUTO) 0.1 K/uL (0.0-0.2); BASOPHILS % (AUTO) 0.6 % (0.0-2.0); EOSINOPHILS # (AUTO) 0.1 K/uL (0.0-0.4); EOSINOPHILS % (AUTO) 0.9 % (0.0-4.0); HEMATOCRIT 29.2 % (36-54); HEMOGLOBIN 9.4 g/dL (14.0-18.0); MEAN CORPUSCULAR HEMOGLOBIN 27 pg (27-31); MEAN CORPUSCULAR HGB CONC 32 % (32-36); MEAN CORPUSCULAR VOLUME 83 fL (79.0-98.0); MONOCYTES # (AUTO) 0.7 K/uL (0.0-1.0); MONOCYTES % (AUTO) 8.4 % (1.7-9.3); NEUTROPHILS # (AUTO) 6.8 K/uL (1.8-7.7); PLATELET COUNT (AUTO) 444 K/uL (130-430); RED BLOOD CELL COUNT(AUTO) 3.52 MIL/uL (4.2-6.2); RED CELL DISTRIBUTION WIDTH 12.8 % (9.0-15.0); WHITE BLOOD COUNT (AUTO) 8.7 K/uL (4.8-10.8)
[2018-08-15] MEDS: OMEPRAZOLE 20 MG CAPSULE.DR (PriLOSEC) PO SCH (06:53)
--- NOTE | 2018-08-15 06:56 | NUR ---
BS 140, NO INSULIN COVERAGE
--- NOTE | 2018-08-15 07:02 | NUR ---
RN ROUNDS WILL ENDORSE PT REPORT TO DAY SHIFT NURSE AT BEDSIDE. PT IS AOX4. PT RESTING IN BED WITH EYES OPEN. CHEST RISE EVEN AND UNLABORED, NO DISTRESS NOTED, NO SOB NOTED. NO COMPLAINTS OF PAIN THROUGHOUT SHIFT. ALL SCHEDULED MEDICATIONS ADMINISTERED SCHEDULED, PT TOLERATED WELL. ALL NEEDS MET THROUGHOUT SHIFT. SAFETY MEASURES IN PLACE CALL LIGHT IN PLACE, ROOM PHONE IN PLACE, BED ALARM ON, BED WHEELS LOCKED, BED IN LOWEST POSITION, BED RAILS UP X2, BEDSIDE TABLE WITHIN REACH. NO OTHER NEEDS AT THIS TIME. WILL MONITOR PT AND CONTINUE POC.
[2018-08-15 07:04] LABS: C-REACTIVE PROTEIN QUANT 0.3 mg/dL (0-0.5); CREATININE 1.89 mg/dL (0.55-1.30); PHOSPHORUS 4.3 mg/dL (2.7-4.5); POTASSIUM 3.7 mmol/L (3.5-5.1)
--- NOTE | 2018-08-15 07:24 | NUR ---
CLOSING NOTE ENDORSED PT REPORT TO DAY SHIFT NURSE MEGAN GILMAN AT BEDSIDE. PT IS AOX4. PT RESTING IN BED WITH EYES OPEN. CHEST RISE EVEN AND UNLABORED, NO DISTRESS NOTED, NO SOB NOTED. NO COMPLAINTS OF PAIN THROUGHOUT SHIFT. ALL SCHEDULED MEDICATIONS ADMINISTERED SCHEDULED, PT TOLERATED WELL. ALL NEEDS MET THROUGHOUT SHIFT. SAFETY MEASURES IN PLACE CALL LIGHT IN PLACE, ROOM PHONE IN PLACE, BED ALARM ON, BED WHEELS LOCKED, BED IN LOWEST POSITION, BED RAILS UP X2, BEDSIDE TABLE WITHIN REACH. NO OTHER NEEDS AT THIS TIME. WILL MONITOR PT AND CONTINUE POC.
--- NOTE | 2018-08-15 08:00 | NUR ---
AM NOTES Patient is awake, alert, and orientedx4 sitting up on chair by bedside. SOB noted on exertion, no pain reported. Patient is saturating at 99% on O2 2lpm via NC. 2 Right forearm IV sites are patent, intact and dressings are dry. IV lasix running at 3ml/hr Patient oriented to room routine. Call light within reach, patient encouraged to use call light when in need of assistance. Strict I&O observed. Fall precautions in place.
[2018-08-15 08:30] VITALS: BP_SYST 121
[2018-08-15] MEDS: DOXYCYCLINE HYCLATE 100 MG CAPSULE PO SCH ×2 (08:39→21:06)
[2018-08-15] MEDS: MULTIVITAMINS TAB 1 TABLET PO SCH (08:39)
[2018-08-15] MEDS: SPIRONOLACTONE 25 MG TABLET (ALDACTONE) PO SCH ×2 (08:39→21:06)
[2018-08-15] MEDS: CILOSTAZOL 50 MG TABLET (PLETAL) PO SCH ×2 (08:40→21:04)
[2018-08-15] MEDS: LOSARTAN POTASSIUM 25 MG TABLET PO SCH (08:41)
[2018-08-15] MEDS: VANCOMYCIN HCL 250 MG CAPSULE PO SCH ×2 (08:41→21:04)
[2018-08-15] MEDS: ASPIRIN 81 MG TAB.CHEW PO SCH (08:41)
[2018-08-15] MEDS: PSYLLIUM HUSK 1 PKT PACKET PO SCH ×3 (08:41→21:00)
[2018-08-15] MEDS: ASCORBIC ACID 500 MG TABLET PO SCH (08:41)
[2018-08-15] MEDS: HEPARIN SODIUM,PORCINE 5000 UNITS/ML VIAL SUBCUT SCH (08:43)
[2018-08-15 10:37] LABS: ERYTHROCYTE SEDIMENTATION RATE 36 MM/HR (0-15)
[2018-08-15 11:13] LABS: NEUTROPHILS % (AUTO) 78.1 % (40.0-70.0)
[2018-08-15] MEDS: INSULIN REGULAR, HUMAN 100 UNITS/ML, 10 ML VIAL (novoLIN R) SUBCUT PRN ×2 (11:30→21:22)
[2018-08-15] MEDS: BALSAM PERU/CASTOR OIL 60 GM OINT...G. TP SCH (11:33)
--- NOTE | 2018-08-15 11:45 | NUR ---
WOUND CARE 1. Left lateral fifth metatarsal head: Diabetic/neuropathic ulcer. Wound bed has yellow and dull pink tissue. No odor, no drainage, surrounding tissue has brown-colored skin. Cleansed wound with normal saline. Moisture barrier cream applied onto periwound and surrounding tissue. Applied Venelex ointment onto wound bed. Covered with foam dressing, signed, timed and dated. 2. Left great toe, distal aspect: Ischemic tissue. Wound bed has light purple eschar. No odor, no drainage. Periwound intact. No dressing applied. Will continue to monitor site for worsening condition. 3. Left medial proximal calf: Chronic surgical site/ scar tissue. Wound bed has light purple and black eschar. No odor, no drainage. Periwound surrounding tissue has dry, flaky skin. Cleansed site with normal saline and pat dry. Covered site with foam dressing, signed, timed and dated. 4. Left thigh #1: Chronic surgical site/ scar tissue. Wound bed has light purple and black eschar. No odor, no drainage. Periwound surrounding tissue has dry, flaky skin. Cleansed site with normal saline and pat dry. Covered site with foam dressing, signed, timed and dated. 5. Left thigh #2 Healing wound. Wound bed is medley and light yellow. No odor, no drainage. Periwound surrounding tissue has dry, flaky skin. Cleansed site with normal saline and pat dry. Covered site with foam dressing, signed, timed and dated. 6. Left groin: Chronic surgical site/ scar tissue. Wound bed has light purple and black eschar. No odor, no drainage. Periwound surrounding tissue has dry, flaky skin. Cleansed site with normal saline and pat dry and left open to air.
[2018-08-15 12:20] VITALS: BP_SYST 134
--- NOTE | 2018-08-15 13:40 | NUR ---
PT VERONICA Patient seen by PT. Patient able to walk in hallway for a short amount of time without oxygen but experienced shortness of breath and c/o scrotal discomfort. Patient saturates at 98% without oxygen and is sitting back in the chair connected to O2 @ 2lpm via NC.
--- NOTE | 2018-08-15 14:25 | NUR ---
LASIX D/C Lasix drip stopped per order of Dr. Samaniego, due to increased creatinine.
--- NOTE | 2018-08-15 15:00 | NUR ---
ROUNDS Recommended patient to go back to bed, patient refused. Encouraged patient to offload buttock every 2 hours with a pillow to prevent pressure ulcers. Patient verbalized understanding.
[2018-08-15 16:43] VITALS: BP_SYST 134
[2018-08-15] MEDS: FUROSEMIDE 40 MG TABLET PO SCH (17:09)
[2018-08-15] MEDS: SIMVASTATIN 20 MG TABLET PO SCH (17:09)
--- NOTE | 2018-08-15 18:37 | NUR ---
CLOSING NOTES Patient sitting up in chair, no s/s of distress, no pain reported. Patient saturating at 98% on O2 2lpm via NC. All needs met throughout shift. IV sites patent, intact, dressings are dry. Cough continues to be non-productive, nose bleed noted due to continuous blowing of the nose. Patient encouraged again to go back to bed, but refused. Instructed on offloading with pillow every two hours, patient verbalized understanding. Call light within reach, encouraged to use call light when in need of assistance. Safety and fall precautions maintained throughout shift. Will endorse to barry RN. Addendum: 08/15/18 at 1921 by Zelda Leone RN Strict I&O observed and maintained throughout shift.
--- NOTE | 2018-08-15 19:15 | NUR ---
CHANGE OF SHIFT; pt. awake and resting on mid fowlers position. O @ 2l/nc. instructed not to blow his nose, has nosebleed earlier as endorsed. called RT to put humidifier. call light within reach. for further assist.
--- NOTE | 2018-08-15 19:28 | NUR ---
NOTIFIED Paged Dr. Oviedo regarding nosebleed. Patient is on Heparin for DVT prophylaxis.
--- NOTE | 2018-08-15 19:37 | NUR ---
CALLED BACK Dr. Marquez called back regarding orders to discontinue Heparin and start SCD for DVT prophylaxis. Endorsed to shift commander nurse.
[2018-08-15 20:00] VITALS: BP_SYST 133
[2018-08-15] MEDS: LEVOFLOXACIN 500 MG/D5W 100 ML IV SCH (20:59)
[2018-08-15] MEDS: CARVEDILOL 6.25 MG TABLET (COREG) PO SCH (21:07)
--- NOTE | 2018-08-15 21:10 | NUR ---
NOTES: due meds given. RT giving breathing treatment. noted occasional bouts of nonproductive cough.
--- NOTE | 2018-08-15 23:30 | NUR ---
NOTES: pt. sleeping when checked. in no acute distress.
[2018-08-16] MEDS: IPRATROPIUM BROM 0.5 MG/2.5 ML VIAL.NEB (ATROVENT) INH SCH ×4 (01:31→19:37)
[2018-08-16] MEDS: ALBUTEROL SULFATE 0.083% 2.5 MG/3 ML VIAL.NEB INH SCH ×4 (01:31→19:37)
--- NOTE | 2018-08-16 03:51 | NUR ---
NOTES: made rounds, pt. sleeping soundly. continue to monitor.
--- NOTE | 2018-08-16 05:06 | NUR ---
NOTES: pt. awakened, called and wants to go restroom, but gets short of breath without O2. BSC used instead, call light within reach. partial am care done. IV sites patent and flushing good. still with swelling on both lower extremities. left leg dressing intact and some dressing came off while he was sleeping. pt. voided per urinal.
[2018-08-16 06:00] VITALS: BP_SYST 114
[2018-08-16 06:27] LABS: BASOPHILS # (AUTO) 0.1 K/uL (0.0-0.2); BASOPHILS % (AUTO) 0.9 % (0.0-2.0); EOSINOPHILS # (AUTO) 0.2 K/uL (0.0-0.4); EOSINOPHILS % (AUTO) 2.5 % (0.0-4.0); HEMATOCRIT 29.3 % (36-54); HEMOGLOBIN 9.4 g/dL (14.0-18.0); LYMPHOCYTES # (AUTO) 1.1 K/uL (1.0-5.5); LYMPHOCYTES % (AUTO) 15.3 % (20.5-51.5); MEAN CORPUSCULAR HEMOGLOBIN 26 pg (27-31); MEAN CORPUSCULAR HGB CONC 32 % (32-36); MEAN CORPUSCULAR VOLUME 82 fL (79.0-98.0); MONOCYTES # (AUTO) 0.6 K/uL (0.0-1.0); MONOCYTES % (AUTO) 8.3 % (1.7-9.3); NEUTROPHILS # (AUTO) 5.5 K/uL (1.8-7.7); PLATELET COUNT (AUTO) 408 K/uL (130-430); RED BLOOD CELL COUNT(AUTO) 3.57 MIL/uL (4.2-6.2); RED CELL DISTRIBUTION WIDTH 13.3 % (9.0-15.0); WHITE BLOOD COUNT (AUTO) 7.5 K/uL (4.8-10.8)
[2018-08-16] MEDS: OMEPRAZOLE 20 MG CAPSULE.DR (PriLOSEC) PO SCH (06:40)
[2018-08-16] MEDS: FUROSEMIDE 40 MG TABLET PO SCH ×2 (06:40→17:42)
--- NOTE | 2018-08-16 06:45 | NUR ---
CLOSING NOTES; pt. had a BM. back to bed with his O2. CXR done at bedside. due meds given. BS 142, no sliding scale coverage needed. unable to expectorate his phlegm, occ. bouts of cough and short of breath. for further care and observation. call light within reach.
[2018-08-16 06:52] LABS: ALBUMIN 2.9 g/dL (3.4-4.8); C-REACTIVE PROTEIN QUANT 0.4 mg/dL (0-0.5); CALCIUM 9.1 mg/dL (8.4-11.0); CREATININE 1.86 mg/dL (0.55-1.30); TOTAL BILIRUBIN 0.7 mg/dL (0.0-1.0)
--- NOTE | 2018-08-16 07:35 | NUR ---
endorsed pt. to incoming shift with nurse Allan. pt weighed on standing scale 175 lbs.
[2018-08-16 07:55] LABS: ERYTHROCYTE SEDIMENTATION RATE 40 MM/HR (0-15)
--- NOTE | 2018-08-16 07:59 | NUR ---
OPENING NOTE: RECEIVED REPORT FROM NIGHT NURSE. PATIENT IS AWAKE AND ALERT, ABLE TO EXPRESS NEEDS, AND ASK FOR ASSISTANCE. NO S/S OF DISTRESS OR SOB. NO COMPLAINTS OF CHEST PAIN OR PAIN. IV IS PATENT AND SALINE LOCKED. PATIENT IS CURRENTLY RECEIVING A BREATHING TREATMENT. CALL LIGHT IN REACH, BED IN LOWEST POSITION, AND WILL CONTINUE TO MONITOR.
[2018-08-16 08:32] VITALS: BP_SYST 117
[2018-08-16 08:51] VITALS: BP_SYST 117
[2018-08-16] MEDS: DOXYCYCLINE HYCLATE 100 MG CAPSULE PO SCH ×2 (08:57→21:40)
[2018-08-16] MEDS: VANCOMYCIN HCL 250 MG CAPSULE PO SCH (08:58)
[2018-08-16] MEDS: PSYLLIUM HUSK 1 PKT PACKET PO SCH ×4 (08:58→21:00)
[2018-08-16] MEDS: ASCORBIC ACID 500 MG TABLET PO SCH (08:58)
[2018-08-16] MEDS: ASPIRIN 81 MG TAB.CHEW PO SCH (08:58)
[2018-08-16] MEDS: SPIRONOLACTONE 25 MG TABLET (ALDACTONE) PO SCH ×2 (08:59→21:42)
[2018-08-16] MEDS: LOSARTAN POTASSIUM 25 MG TABLET PO SCH (08:59)
[2018-08-16] MEDS: BALSAM PERU/CASTOR OIL 60 GM OINT...G. TP SCH (09:00)
[2018-08-16] MEDS: CARVEDILOL 6.25 MG TABLET (COREG) PO SCH ×2 (09:00→21:41)
[2018-08-16] MEDS: CILOSTAZOL 50 MG TABLET (PLETAL) PO SCH ×2 (09:00→21:40)
[2018-08-16] MEDS: MULTIVITAMINS TAB 1 TABLET PO SCH (09:00)
--- NOTE | 2018-08-16 10:00 | NUR ---
RN ROUNDS PATIENT IS RESTING COMFORTABLY IN BED. NO S/S OF DISTRESS OR SOB. PATIENT IS AWAKE AND ALERT. NO NEEDS AT THIS TIME. CALL LIGHT IN REACH, BED IN LOWEST POSITION, AND WILL CONTINUE TO MONITOR.
[2018-08-16] MEDS: INSULIN REGULAR, HUMAN 100 UNITS/ML, 10 ML VIAL (novoLIN R) SUBCUT PRN ×2 (11:23→21:55)
--- NOTE | 2018-08-16 12:00 | NUR ---
RN ROUNDS PATIENT IS RESTING COMFORTABLY IN BED. NO S/S OF DISTRESS OR SOB. BLOOD SUGAR WAS 307, COVERED WITH 8 UNITS. NO NEEDS EXPRESSED AT THIS TIME. NO COMPLAINTS OF PAIN. CALL LIGHT IN REACH, BED IN LOWEST POSITION, AND WILL CONTINUE TO MONITOR.
[2018-08-16 13:00] VITALS: BP_SYST 110
--- NOTE | 2018-08-16 14:35 | NUR ---
RN ROUNDS PATIENT IS RESTING COMFORTABLY IN BED. NO S/S OF DISTRESS OR SOB. PATIENT IS AWAKE AND ALERT. CALL LIGHT IN REACH, BED IN LOWEST POSITION, AND WILL CONTINUE TO MONITOR.
--- NOTE | 2018-08-16 16:00 | NUR ---
RN ROUNDS PATIENT IS RESTING COMFORTABLY IN BED. NO S/S OF DISTRESS OR SOB. PATIENT IS AWAKE AND ALERT. NO NEEDS AT THIS TIME. WOUND CARE DONE, DOCUMENTED ON ASSESSMENT. CALL LIGHT IN REACH, BED IN LOWEST POSITION, AND WILL CONTINUE TO MONITOR.
[2018-08-16 16:47] VITALS: BP_SYST 115
[2018-08-16] MEDS: SIMVASTATIN 20 MG TABLET PO SCH (17:42)
--- NOTE | 2018-08-16 18:18 | NUR ---
CLOSING NOTE: PATIENT IS RESTING COMFORTABLY IN BED. NO S/S OF DISTRESS OR SOB. PATIENT IS AWAKE AND ALERT. ALL NEEDS MET DURING SHIFT. PATIENT IN STABLE CONDITION. CALL LIGHT IN REACH, BED IN LOWEST POSITION, AND WILL GIVE REPORT TO NIGHT NURSE.
--- NOTE | 2018-08-16 19:42 | NUR ---
Initial note: Received handoff report from dayshift RN at patient's bedside. Patient is sitting on chair at bedside eating dinner. Alert and oriented x4. No acute distress noted. Respirations even and unlabored on 2L NC. Two saline locked IV sites noted on patient's right forearm, sites are patent and benign. Safety and fall precautions in place. Will continue with plan of care.
[2018-08-16] MEDS: LEVOFLOXACIN 500 MG/D5W 100 ML IV SCH (20:28)
[2018-08-16 20:59] VITALS: BP_SYST 115
--- NOTE | 2018-08-16 21:55 | NUR ---
Blood sugar: Patient's blood sugar was 180. 2 units of regular insulin administered subcutaneously per sliding scale. Education provided regarding medication indication and side effects prior to administration, patient verbalized understanding. Safety and fall precautions in place. Will continue monitoring.
--- NOTE | 2018-08-16 23:57 | NUR ---
Rounds: Patient is sleeping in bed, no acute distress noted. Patient's breathing is even and unlabored on 2L NC. Safety and fall precautions in place, call light is with patient. Will continue to monitor.
[2018-08-17] MEDS: IPRATROPIUM BROM 0.5 MG/2.5 ML VIAL.NEB (ATROVENT) INH SCH ×4 (00:36→20:06)
[2018-08-17] MEDS: ALBUTEROL SULFATE 0.083% 2.5 MG/3 ML VIAL.NEB INH SCH ×4 (00:36→20:06)
[2018-08-17 02:10] VITALS: BP_SYST 108
--- NOTE | 2018-08-17 02:10 | NUR ---
Rounds: Patient in in bed asleep, does not show any signs or symptoms of acute distress. Patient's breathing is even and unlabored. Safety and fall precautions remain in place, call light is with patient. Will continue to monitor.
--- NOTE | 2018-08-17 04:23 | NUR ---
Rounds: Patient is sleeping in bed, does not show any signs or symptoms of acute distress. Respirations even and unlabored. Remains on 2L NC. Call light is with patient. Will continue monitoring.
[2018-08-17] MEDS: OMEPRAZOLE 20 MG CAPSULE.DR (PriLOSEC) PO SCH (06:34)
[2018-08-17] MEDS: FUROSEMIDE 40 MG TABLET PO SCH ×2 (06:39→17:32)
--- NOTE | 2018-08-17 06:40 | NUR ---
Closing note: Patient is awake, sitting in chair at bedside listening to music. No acute distress noted. 2L NC remains in place. Most recent blood sugar was 144, no insulin provided per sliding scale. IV sites to right forearm remain patent and benign. Fluid restriction observed. All needs met and attended to. Safety and fall precautions in place, call light is with patient. Will endorse care to dayshift RN.
[2018-08-17 08:04] VITALS: BP_SYST 106
--- NOTE | 2018-08-17 08:05 | NUR ---
OPENING NOTE: MORNING REPORT WAS TAKEN FROM ELECTRIC METER REPAIRER NURSE. PATIENT IS ALERT AND ORIENTED. PATIENT SITTING IN CHAIR. VITALS AND MORNING ASSESSMENT WAS DONE. PATIENT NOT COMPLAINING OF SHORTNESS OF BREATH. PATIENT ON 2L NC. PATIENT NOT COMPLAINING OF PAIN. DRESSINGS ARE DRY AND INTACT. CALL LIGHT IS IN REACH. EDUCATED PATIENT TO CALL WHEN HE WANTS TO GET INTO BED SO WE CAN HELP. PATIENT VERBALIZED UNDERSTANDING. WILL CONTINUE TO MONITOR.
[2018-08-17] MEDS: PSYLLIUM HUSK 1 PKT PACKET PO SCH ×3 (09:00→21:00)
[2018-08-17] MEDS ORDERED: LEVO250T2 PO (09:11)
[2018-08-17] MEDS ORDERED: SPIR25TA PO (09:11)
[2018-08-17] MEDS ORDERED: COR6.25 PO (09:11)
[2018-08-17] MEDS ORDERED: LOSA25TA3 PO (09:11)
[2018-08-17] MEDS ORDERED: FURO-149 PO (09:11)
[2018-08-17] MEDS: LOSARTAN POTASSIUM 25 MG TABLET PO SCH (09:12)
[2018-08-17] MEDS: MULTIVITAMINS TAB 1 TABLET PO SCH (09:12)
[2018-08-17] MEDS: ASPIRIN 81 MG TAB.CHEW PO SCH (09:12)
[2018-08-17] MEDS: ASCORBIC ACID 500 MG TABLET PO SCH (09:13)
[2018-08-17] MEDS: DOXYCYCLINE HYCLATE 100 MG CAPSULE PO SCH ×2 (09:14→21:01)
[2018-08-17] MEDS: CARVEDILOL 6.25 MG TABLET (COREG) PO SCH ×2 (09:15→21:02)
[2018-08-17] MEDS: CILOSTAZOL 50 MG TABLET (PLETAL) PO SCH ×2 (09:15→21:01)
[2018-08-17] MEDS ORDERED: guaiFENesin ER 600 MG TAB PO ONE (09:15)
[2018-08-17] MEDS: SPIRONOLACTONE 25 MG TABLET (ALDACTONE) PO SCH ×2 (09:16→21:02)
--- NOTE | 2018-08-17 09:25 | NUR ---
NOTE: GAVE PATIENT MORNING MEDICATIONS. PATIENT SWALLOWED WITH OUT DIFFICULTY. PATIENT SITTING IN CHAIR WITH NO SIGNS OF DISTRESS. WILL CONTINUE TO MONITOR. Addendum: 08/17/18 at 1108 by Diann Ching RN PATIENT REFUSED METAMUCIL BECAUSE PATIENT SAID HE DOESNT NEED AND GOES TO THE RESTROOM FINE.
[2018-08-17] MEDS: INSULIN REGULAR, HUMAN 100 UNITS/ML, 10 ML VIAL (novoLIN R) SUBCUT PRN ×3 (11:45→21:13)
--- NOTE | 2018-08-17 11:45 | NUR ---
NOTE: CHECKED PATIENT'S BLOOD SUGAR AND WAS 242. INSULIN GIVEN TO COVER. PREPRINT ANALYST TALKING TO PATIENT. WILL CONTINUE TO MONITOR.
[2018-08-17 12:14] VITALS: BP_SYST 96
--- NOTE | 2018-08-17 15:44 | NUR ---
NOTE: CHECKED PATIENT'S OXYGEN SATURATION ON ROOM AIR AND WAS 92%. PATIENT SAID SHE IS HAVING SHORTNESS OF BREATH OFF AND ON. WILL LET DR KNOW AND CONTINUE TO MONITOR.
[2018-08-17 16:00] VITALS: BP_SYST 130
--- NOTE | 2018-08-17 16:14 | NUR ---
: DR BUTLER CALLED BACK AND TOLD HIM THERE IS NO PLACEMENT AT [facility]. SAID TO FIND ANOTHER PLACE FOR HIM.
--- NOTE | 2018-08-17 16:54 | NUR ---
CM DC PLANNING: UNDERSTOOD THAT WROTE ORDER FOR SNF PLACEMENT DUE TO CHF & PLEURAL EFFUSIONS WHICH WERE NEW Dx WITH THIS ADMIT. DR. BUTLER REQUESTING ON-GOING PT FOR Pt AT SNF. PER [facility] WHERE Pt CAME FOR THIS ADMISSION, THEY WILL ACCEPT Pt BACK, BUT NEED TO HAVE AUTH FROM [facility] AND, THEY ARE NOT AVAILABLE ON WEEKENDS TO PROVIDE AUTHORIZATION. CM WILL UPDATE CMs FOR SUNDAY TO FOLLOW-UP ON SUNDAY AND SUNDAY, 08/18 & 08/19/18. REVIEW OF PT NOTES FOR TODAY STATE Pt ABLE TO WALK 150 FEET ON 2 LPM/NC O2 WITH CONTACT GUARD ASSIST; WAS PROVIDED WITH BLE EXERCISES FOR STRENGTHENING AND ENDURANCE.
[2018-08-17] MEDS: SIMVASTATIN 20 MG TABLET PO SCH (17:27)
[2018-08-17] MEDS: BALSAM PERU/CASTOR OIL 60 GM OINT...G. TP SCH (17:28)
--- NOTE | 2018-08-17 18:14 | NUR ---
CLOSING NOTE: PATIENT SITTING IN BED, STILL EATING DINNER. WAS GOING TO DO WOUND CARE BUT PATIENT ASKED IF IT CAN BE DONE LATER. PATIENT ON 2L NC NOT COMPLAINING OF SHORTNESS OF BREATH. PATIENT NOT COMPLAINING OF PAIN. PATIENT HAS NO FURTHER REQUESTS. PATIENT DID NOT WANT SCD'S ON AT MOMENT. CALL LIGHT IS IN REACH AND BED IS IN LOWEST POSITION. WILL CONTINUE TO MONITOR AND GIVE REPORT TO DIRECTOR OF SAFETY AND SECURITY NURSE.
[2018-08-17 19:45] VITALS: BP_SYST 118
--- NOTE | 2018-08-17 19:45 | NUR ---
INITIAL NOTE AT INITIAL ASSESSMENT, PATIENT IS RESTING IN BED, STABLE, NO SIGNS OF RESPIRATORY DISTRESS. PATIENT VERBALIZES NO PAIN. PLAN OF CARE FOR THE EVENING IS COMMUNICATED WITH THE PATIENT. CALL LIGHT- TEACH BACK IS SUCCESSFUL . BED IS LOCKED, ALARMED, AND AT THE LOWEST LEVEL. FALL AND SAFETY PRECAUTIONS WILL BE IN PLACE THROUGHOUT THE SHIFT.
[2018-08-17] MEDS: LEVOFLOXACIN 500 MG/D5W 100 ML IV SCH (20:58)
[2018-08-17] MEDS: guaiFENesin ER 600 MG TAB PO SCH (21:03)
--- NOTE | 2018-08-17 21:43 | NUR ---
NOTE PATIENT IS RESTING IN BED, STABLE, NO SIGNS OF RESPIRATORY DISTRESS. BLOOD SUGAR AT THIS TIME REQUIRES INSULIN COVERAGE PER SSI ORDERED BY MD. CALL LIGHT IS WITHIN REACH. BED IS LOCKED, ALARMED, AND AT THE LOWEST LEVEL.
[2018-08-17 23:00] VITALS: BP_SYST 106
--- NOTE | 2018-08-17 23:40 | NUR ---
NOTE PATIENT IS SLEEPING, STABLE, NO SIGNS OF RESPIRATORY DISTRESS. CALL LIGHT IS WITHIN REACH. BED IS LOCKED, ALARMED, AND AT THE LOWEST LEVEL.
[2018-08-18] MEDS: ALBUTEROL SULFATE 0.083% 2.5 MG/3 ML VIAL.NEB INH SCH ×4 (00:54→19:46)
[2018-08-18] MEDS: IPRATROPIUM BROM 0.5 MG/2.5 ML VIAL.NEB (ATROVENT) INH SCH ×4 (00:54→19:46)
--- NOTE | 2018-08-18 01:38 | NUR ---
NOTE PATIENT IS SLEEPING, STABLE, NO SIGNS OF RESPIRATORY DISTRESS. CALL LIGHT IS WITHIN REACH. BED IS LOCKED, ALARMED, AND AT THE LOWEST LEVEL.
--- NOTE | 2018-08-18 02:30 | NUR ---
NOTE PATIENT IS SLEEPING, STABLE, NO SIGNS OF RESPIRATORY DISTRESS. CALL LIGHT IS WITHIN REACH. BED IS LOCKED, ALARMED, AND AT THE LOWEST LEVEL.
--- NOTE | 2018-08-18 04:12 | NUR ---
NOTE PATIENT IS SLEEPING, STABLE, NO SIGNS OF RESPIRATORY DISTRESS. CALL LIGHT IS WITHIN REACH. BED IS LOCKED, ALARMED, AND AT THE LOWEST LEVEL.
--- NOTE | 2018-08-18 05:37 | NUR ---
WOUND CARE PERFORMED WOUND CARE PERFORMED AT THIS TIME PER WOUND CARE ORDERS. PATIENT TOLERATED WELL. WOUNDS SHOW NO SIGNS OF WORSENING. PATIENT IS REPOSITIONED IN BED FOR COMFORT, CALL LIGHT IS WITHIN REACH. BED IS LOCKED, ALARMED, AND AT THE LOWEST LEVEL.
[2018-08-18 06:11] LABS: CALCIUM 9.1 mg/dL (8.4-11.0); CREATININE 1.89 mg/dL (0.55-1.30); POTASSIUM 3.8 mmol/L (3.5-5.1)
[2018-08-18] MEDS: FUROSEMIDE 40 MG TABLET PO SCH ×2 (06:26→17:16)
[2018-08-18] MEDS: INSULIN REGULAR, HUMAN 100 UNITS/ML, 10 ML VIAL (novoLIN R) SUBCUT PRN ×4 (06:33→20:47)
--- NOTE | 2018-08-18 06:51 | NUR ---
CLOSING NOTE PATIENT IS RESTING UPRIGHT IN A CHAIR AT BEDSIDE, STABLE, NO SIGNS OF RESPIRATORY DISTRESS. AM BLOOD SUGAR CHECK REQUIRED INSULIN COVERAGE PER SSI ORDERED BY MD. PATIENT VERBALIZES NO PAIN. CALL LIGHT IS WITHIN REACH. BED IS LOCKED, ALARMED, AND AT THE LOWEST LEVEL. ALL NEEDS AND ORDERS HAVE BEEN MET. FALL AND SAFETY PRECAUTIONS HAVE BEEN IN PLACE THROUGHOUT THE SHIFT. WILL CONTINUE TO MONITOR UNTIL SHIFT REPORT IS GIVEN AT BEDSIDE TO AM NURSE.
[2018-08-18] MEDS: OMEPRAZOLE 20 MG CAPSULE.DR (PriLOSEC) PO SCH (06:55)
--- NOTE | 2018-08-18 07:45 | NUR ---
OPENING NOTE: MORNING REPORT WAS TAKEN FROM SENIOR TAX MANAGER NURSE. PATIENT IS ALERT AND ORIENTED. PATIENT SITTING IN CHAIR. VITALS AND MORNING ASSESSMENT WAS DONE. PATIENT NOT COMPLAINING OF SHORTNESS OF BREATH. PATIENT ON 2L NC. PATIENT HAS COUGH. PATIENT NOT COMPLAINING OF PAIN. DRESSINGS ARE DRY AND INTACT. PATIENT HAS SWELLING IN LEGS. PATIENT NOT COMPLAINING OF NAUSEA OR VOMITING. PATIENT NOT COMPLAINING OF CONSTIPATION. CALL LIGHT IS IN REACH. EDUCATED PATIENT TO CALL WHEN HE WANTS TO GET INTO BED SO WE CAN HELP. PATIENT VERBALIZED UNDERSTANDING. WILL CONTINUE TO MONITOR.
[2018-08-18 08:06] VITALS: BP_SYST 98
[2018-08-18] MEDS: BALSAM PERU/CASTOR OIL 60 GM OINT...G. TP SCH (09:00)
[2018-08-18] MEDS: CARVEDILOL 6.25 MG TABLET (COREG) PO SCH ×2 (09:00→20:42)
[2018-08-18] MEDS: PSYLLIUM HUSK 1 PKT PACKET PO SCH ×3 (09:15→20:43)
[2018-08-18] MEDS: ASPIRIN 81 MG TAB.CHEW PO SCH (09:15)
[2018-08-18] MEDS: guaiFENesin ER 600 MG TAB PO SCH ×2 (09:15→20:42)
[2018-08-18] MEDS: guaiFENesin/DEXTROMETHORPHAN 10 ML UDC PO PRN ×2 (09:15→20:51)
[2018-08-18] MEDS: CILOSTAZOL 50 MG TABLET (PLETAL) PO SCH ×2 (09:15→20:41)
[2018-08-18] MEDS: DOXYCYCLINE HYCLATE 100 MG CAPSULE PO SCH ×2 (09:15→20:42)
[2018-08-18] MEDS: ASCORBIC ACID 500 MG TABLET PO SCH (09:16)
[2018-08-18] MEDS: MULTIVITAMINS TAB 1 TABLET PO SCH (09:16)
[2018-08-18] MEDS: SPIRONOLACTONE 25 MG TABLET (ALDACTONE) PO SCH ×2 (09:16→20:42)
--- NOTE | 2018-08-18 09:23 | NUR ---
NOTE: GAVE PATIENT MORNING MEDICATIONS. PATIENT SWALLOWED WITH OUT DIFFICULTIES. GAVE ROBITUSSIN BECAUSE PATIENT WAS ASKING FOR IT. HELD BP MEDICATION COREG BECAUSE SBP <100. WILL MONITOR BLOOD PRESSURE. CALL LIGHT IS IN REACH. WILL CONTINUE TO MONITOR.
[2018-08-18] MEDS: LOSARTAN POTASSIUM 25 MG TABLET PO SCH (10:47)
--- NOTE | 2018-08-18 10:49 | NUR ---
NOTE: RECHECKED PATIENT'S BLOOD PRESSURE AND WAS 130/74. GAVE BLOOD PRESSURE MEDICATION. PATIENT HAS NO FURTHER REQUESTS. WILL CONTINUE TO MONITOR.
--- NOTE | 2018-08-18 11:35 | NUR ---
NOTE: PATIENT SITTING AT BEDSIDE. TOOK PATIENT'S SUGAR AND WAS 241. INSULIN GIVEN TO COVER. PATIENT HAS NO FURTHER REQUESTS. WILL CONTINUE TO MONITOR.
[2018-08-18 12:25] VITALS: BP_SYST 108
[2018-08-18] MEDS: ACETYLCYSTEINE 20% 4 ML VIAL (RT) INH SCH ×2 (14:30→19:47)
--- NOTE | 2018-08-18 14:30 | NUR ---
NOTE; PATIENT SITTING IN CHAIR AT BEDSIDE. LEGS ARE ELEVATED. PATIENT NOT COMPLAINING OF ANY DISTRESS. PATIENT HAS NO FURTHER NEEDS. WILL CONTINUE TO MONITOR.
--- NOTE | 2018-08-18 15:30 | NUR ---
NOTE: PATIENT REFUSED METAMUCIL BECAUSE PATIENT SAID HE ALREADY HAD BOWEL MOVEMENT.
[2018-08-18 16:00] VITALS: BP_SYST 115
[2018-08-18] MEDS: SIMVASTATIN 20 MG TABLET PO SCH (17:15)
--- NOTE | 2018-08-18 17:25 | NUR ---
NOTE: TOOK PATIENT'S BLOOD SUGAR AND WAS 239. GAVE INSULIN TO COVER. GAVE PATIENT SCHEDULED MEDICATIONS. PATIENT SITTING IN CHAIR AT EDGE OF BED WITH NO DISTRESS. PATIENT HAS NO FURTHER REQUESTS. WILL CONTINUE TO MONITOR.
--- NOTE | 2018-08-18 18:55 | NUR ---
CLOSING NOTE: PATIENT SITTING IN CHAIR AT BEDSIDE. PATIENT ON 2L NC NOT COMPLAINING OF SHORTNESS OF BREATH. PATIENT NOT COMPLAINING OF PAIN. PATIENT HAS NO FURTHER REQUESTS. PATIENT DID NOT WANT SCD'S ON AT MOMENT. CALL LIGHT IS IN REACH. WILL CONTINUE TO MONITOR AND GIVE REPORT TO METAL HANGING SUPERVISOR NURSE.
[2018-08-18 19:54] VITALS: BP_SYST 135
--- NOTE | 2018-08-18 21:54 | NUR ---
NOTE PATIENT IS RESTING IN BED, STABLE, NO SIGNS OF RESPIRATORY DISTRESS. BLOOD SUGAR CHECK AT THIS TIME REQUIRES INSULIN COVERAGE PER SSI ORDERED BY MD. BED IS LOCKED, ALARMED, AND AT THE LOWEST LEVEL.
--- NOTE | 2018-08-18 23:50 | NUR ---
NOTE PATIENT IS SLEEPING, STABLE, NO SIGNS OF RESPIRATORY DISTRESS. CALL LIGHT IS WITHIN REACH . BED IS LOCKED, ALARMED, AND AT THE LOWEST LEVEL.
[2018-08-19] MEDS: ALBUTEROL SULFATE 0.083% 2.5 MG/3 ML VIAL.NEB INH SCH ×4 (00:34→19:40)
[2018-08-19] MEDS: IPRATROPIUM BROM 0.5 MG/2.5 ML VIAL.NEB (ATROVENT) INH SCH ×4 (00:34→19:41)
[2018-08-19 00:43] VITALS: BP_SYST 125
--- NOTE | 2018-08-19 01:48 | NUR ---
NOTE PATIENT IS SLEEPING, STABLE, NO SIGNS OF RESPIRATORY DISTRESS. CALL LIGHT IS WITHIN REACH . BED IS LOCKED, ALARMED, AND AT THE LOWEST LEVEL.
--- NOTE | 2018-08-19 03:45 | NUR ---
NOTE PATIENT IS SLEEPING, STABLE, NO SIGNS OF RESPIRATORY DISTRESS. CALL LIGHT IS WITHIN REACH . BED IS LOCKED, ALARMED, AND AT THE LOWEST LEVEL.
--- NOTE | 2018-08-19 05:40 | NUR ---
WOUND CARE WOUND CARE IS PERFORMED FOR PATIENT AT THIS TIME PER WOUND CARE ORDERS. PATIENT TOLERATED WELL. PATIENT POSITIONED FOR COMFORT, STABLE, NO SIGNS OF RESPIRATORY DISTRESS. CALL LIGHT IS WITHIN REACH. BED IS LOCKED, ALARMED, AND AT THE LOWEST LEVEL.
[2018-08-19] MEDS: FUROSEMIDE 40 MG TABLET PO SCH ×2 (06:23→17:44)
[2018-08-19] MEDS: guaiFENesin/DEXTROMETHORPHAN 10 ML UDC PO PRN ×2 (06:24→20:15)
[2018-08-19] MEDS: INSULIN REGULAR, HUMAN 100 UNITS/ML, 10 ML VIAL (novoLIN R) SUBCUT PRN ×4 (06:28→20:13)
--- NOTE | 2018-08-19 06:36 | NUR ---
CLOSING NOTE PATIENT IS RESTING IN BED, STABLE, NO SIGNS OF RESPIRATORY DISTRESS. BLOOD SUGAR AT THIS TIME REQUIRES INSULIN COVERAGE PER SSI ORDERED BY MD. CALL LIGHT IS WITHIN REACH. BED IS LOCKED, ALARMED, AND AT THE LOWEST LEVEL. FALL AND SAFETY PRECAUTIONS HAVE BEEN IN PLACE THROUGHOUT THE SHIFT. WILL CONTINUE TO MONITOR UNTIL SHIFT REPORT IS GIVEN AT BEDSIDE TO AM NURSE.
[2018-08-19] MEDS: ACETYLCYSTEINE 20% 4 ML VIAL (RT) INH SCH ×2 (07:36→19:40)
[2018-08-19 08:00] VITALS: BP_SYST 105
--- NOTE | 2018-08-19 08:00 | NUR ---
opening Note Report received from [facility] shift nurse. Patient is currently siting up in a chair. Iv is on the RFA 22g saline locked. Patient is currently on strict I&O's. No signs of SOB noted at the moment. Call light is within reach and bed is in low position. Will continue to monitor.
--- NOTE | 2018-08-19 08:01 | NUR ---
Nutrition Update Brock Scale 16 noted. Pt admitted for Pneumonia, Pleural Effusion Diet: cardiac low cholesterol low fat 2gm Na diet BMI: 24.5 kg/m2 RD to follow per nutrition care standards.
[2018-08-19 08:08] LABS: ALBUMIN 2.8 g/dL (3.4-4.8); CALCIUM 9.1 mg/dL (8.4-11.0); CREATININE 1.83 mg/dL (0.55-1.30); PHOSPHORUS 4.6 mg/dL (2.7-4.5); POTASSIUM 3.5 mmol/L (3.5-5.1); TOTAL BILIRUBIN 0.6 mg/dL (0.0-1.0)
[2018-08-19 08:34] LABS: BASOPHILS # (AUTO) 0.1 K/uL (0.0-0.2); BASOPHILS % (AUTO) 0.7 % (0.0-2.0); EOSINOPHILS # (AUTO) 0.4 K/uL (0.0-0.4); EOSINOPHILS % (AUTO) 5.6 % (0.0-4.0); HEMATOCRIT 28.5 % (36-54); HEMOGLOBIN 9.4 g/dL (14.0-18.0); LYMPHOCYTES # (AUTO) 1.2 K/uL (1.0-5.5); LYMPHOCYTES % (AUTO) 16.2 % (20.5-51.5); MEAN CORPUSCULAR HEMOGLOBIN 27 pg (27-31); MEAN CORPUSCULAR HGB CONC 33 % (32-36); MEAN CORPUSCULAR VOLUME 80 fL (79.0-98.0); MONOCYTES # (AUTO) 0.6 K/uL (0.0-1.0); MONOCYTES % (AUTO) 8.4 % (1.7-9.3); NEUTROPHILS % (AUTO) 69.1 % (40.0-70.0); PLATELET COUNT (AUTO) 328 K/uL (130-430); RED BLOOD CELL COUNT(AUTO) 3.55 MIL/uL (4.2-6.2); RED CELL DISTRIBUTION WIDTH 12.9 % (9.0-15.0); WHITE BLOOD COUNT (AUTO) 7.3 K/uL (4.8-10.8)
[2018-08-19] MEDS: OMEPRAZOLE 20 MG CAPSULE.DR (PriLOSEC) PO SCH (09:42)
[2018-08-19] MEDS: ASCORBIC ACID 500 MG TABLET PO SCH (09:42)
[2018-08-19] MEDS: SPIRONOLACTONE 25 MG TABLET (ALDACTONE) PO SCH ×2 (09:43→20:08)
[2018-08-19] MEDS: DOXYCYCLINE HYCLATE 100 MG CAPSULE PO SCH ×2 (09:44→20:06)
[2018-08-19] MEDS: CILOSTAZOL 50 MG TABLET (PLETAL) PO SCH ×2 (09:44→20:08)
[2018-08-19] MEDS: ASPIRIN 81 MG TAB.CHEW PO SCH (09:44)
[2018-08-19] MEDS: LOSARTAN POTASSIUM 25 MG TABLET PO SCH (09:44)
[2018-08-19] MEDS: CARVEDILOL 6.25 MG TABLET (COREG) PO SCH ×2 (09:45→20:07)
[2018-08-19] MEDS: guaiFENesin ER 600 MG TAB PO SCH ×2 (09:45→20:07)
[2018-08-19] MEDS: MULTIVITAMINS TAB 1 TABLET PO SCH (09:45)
[2018-08-19] MEDS: PSYLLIUM HUSK 1 PKT PACKET PO SCH ×3 (09:45→20:21)
--- NOTE | 2018-08-19 10:20 | NUR ---
Rounds Patient is resting in bed. Call light is within reach.
[2018-08-19 12:02] VITALS: BP_SYST 134
--- NOTE | 2018-08-19 12:45 | NUR ---
Rounds Patient is resting in bed. No signs of distress noted at the moment.
--- NOTE | 2018-08-19 14:30 | NUR ---
Rounds Patient is in bed. No complaints of pain or SOB at the moment. call light is within reach.
[2018-08-19 16:02] VITALS: BP_SYST 103
--- NOTE | 2018-08-19 16:38 | NUR ---
Rounds Patient is sitting up in a chair. Family is at the bedside.
[2018-08-19] MEDS: SIMVASTATIN 20 MG TABLET PO SCH (17:43)
[2018-08-19] MEDS: BALSAM PERU/CASTOR OIL 60 GM OINT...G. TP SCH (17:45)
--- NOTE | 2018-08-19 18:36 | NUR ---
Closing Note patient has been stable throughout the shift. IV is on the RFA 22g saline locked. 02 via NC remains at 2l. Strict I&O's remain in place. Call light is within reach and bed is in low position. Will endorse care to the oncoming nurse.
--- NOTE | 2018-08-19 19:35 | NUR ---
OPENING NOTE RECEIVED PT AND REPORT FROM DAY SHIFT NURSE. PT IS SITTING UP AWAKE IN BED. PT ABLE TO VERBALIZE NEEDS. PT ON NASAL CANULA. PT RECEIVING BREATHING TREATMENT. IV INTACT AND SALINE LOCKED. FALL AND SAFETY PRECAUTIONS IN PLACE. BED LOCKED IN LOWEST POSITION. CALL LIGHT WITH PT. WILL CONTINUE TO MONITOR.
[2018-08-19 20:00] VITALS: BP_SYST 138
--- NOTE | 2018-08-19 20:06 | NUR ---
MEDICATION ADMINISTRATION ADMINISTERED MEDICATION PER ORDERS. BS OF 318, COVERAGE PER SLIDING SCALE. ADMINISTERED PRN COUGH MEDICATION WELL.
--- NOTE | 2018-08-19 21:00 | NUR ---
FLUID RESTRICTION DISCUSSED FLUID RESTRICTION. PT VERBALIZED UNDERSTANDING. WILL CONTINUE TO MONITOR INTAKE AND OUTPUT.
--- NOTE | 2018-08-19 23:40 | NUR ---
ROUNDING NOTE PT RESTING. DENIES ANY PAIN. VITALS WNL. WILL CONTINUE TO MONITOR.
[2018-08-20] VITALS (7 sets, daily range): BP systolic 103–126
[2018-08-20] MEDS: ALBUTEROL SULFATE 0.083% 2.5 MG/3 ML VIAL.NEB INH SCH ×4 (00:35→19:56)
[2018-08-20] MEDS: IPRATROPIUM BROM 0.5 MG/2.5 ML VIAL.NEB (ATROVENT) INH SCH ×4 (00:35→19:55)
--- NOTE | 2018-08-20 01:50 | NUR ---
ROUNDING NOTE ADJUSTED PT TELE MONITOR LEADS AND REPLACED BATTERIES. PT SLEEPING. WILL CONTINUE TO MONITOR. CALL LIGHT WITH PT.
--- NOTE | 2018-08-20 03:45 | NUR ---
ROUNDING NOTE PT SLEEPING IN BED. NO S/S OF DISTRESS OR DISCOMFORT. CALL LIGHT WITH PT. WILL CONTINUE TO MONITOR.
--- NOTE | 2018-08-20 05:15 | NUR ---
ROUNDING NOTE PT IS SLEEPING IN BED. NO S/S OF DISTRESS OR DISCOMFORT. CALL LIGHT WITH PT.
[2018-08-20] MEDS: OMEPRAZOLE 20 MG CAPSULE.DR (PriLOSEC) PO SCH (06:30)
[2018-08-20] MEDS: FUROSEMIDE 40 MG TABLET PO SCH ×2 (06:30→21:01)
--- NOTE | 2018-08-20 06:30 | NUR ---
BS/ MEDICATION ADMINISTRATION ADMINISTERED MEDICATION PER ORDERS. BS OF 181, COVERAGE PER SLIDING SCALE. WILL CONTINUE TO MONITOR.
[2018-08-20] MEDS: INSULIN REGULAR, HUMAN 100 UNITS/ML, 10 ML VIAL (novoLIN R) SUBCUT PRN ×4 (06:36→21:05)
[2018-08-20] MEDS: ACETYLCYSTEINE 20% 4 ML VIAL (RT) INH SCH ×3 (07:27→19:56)
--- NOTE | 2018-08-20 07:42 | NUR ---
CLOSING NOTE ENDORSED CARE AND REPORT TO DAY SHIFT NURSE. PT IS SITTING UP AWAKE AT THIS TIME. PT DENIES PAIN AT THIS TIME. ALL NEEDS MET THROUGHOUT SHIFT. NO SIGNIFICANT CHANGES TO NOTE. PT IN STABLE CONDITION. ENDORSED ALL FURTHER PLAN OF CARE. CALL LIGHT WITH PT.
--- NOTE | 2018-08-20 08:00 | NUR ---
initial notes rec patient awake alert with ivl on the r forearm intact. no infiltration noted. denies pain at this time. resp easy and unlabored. hob slightly elevated with o2 at 2 liters via nasal caanula. bed in low position and nixon rails up and locked. call light within reach and knows when to call for assists. fall/safety precaution was reinforced. will continue to monitor patient.
[2018-08-20] MEDS: PSYLLIUM HUSK 1 PKT PACKET PO SCH ×3 (09:00→21:00)
--- NOTE | 2018-08-20 09:55 | NUR ---
DC PLANNING Per zana Magaña special events planner, [facility] still waiting on auth. This am I called & spoke w Alix @ [facility], ph [phone], states she left msg w CM @ [facility] still waiting for auth. I called & left msg markie Bustillos, CM @ ph [phone], if getting auth for SNF if not need list of contracted Home Health, DME, & possible home O2. Updated Archana. Addendum: 08/20/18 at 1035 by Brittni Rankin RN zana Magaña special events planner, received call back from Tressa @ , pt does not qualify for SNF, gave Archana contracted HH & DME company. I called & spoke w Dr Marquez, informed SNF not auth'd. Gave ph order for home health & DME. Asked if going to need home O2, gave ph order for ABG on room air. States will eval pt later today for possible dc home today. Spoke w pt @ bedside & agreeable w dc home w home health & FWW. Pt's nurse, Karen huber.
[2018-08-20] MEDS: MULTIVITAMINS TAB 1 TABLET PO SCH (10:16)
[2018-08-20] MEDS: ASCORBIC ACID 500 MG TABLET PO SCH (10:16)
[2018-08-20] MEDS: CILOSTAZOL 50 MG TABLET (PLETAL) PO SCH ×2 (10:17→21:01)
[2018-08-20] MEDS: ASPIRIN 81 MG TAB.CHEW PO SCH (10:17)
[2018-08-20] MEDS: SPIRONOLACTONE 25 MG TABLET (ALDACTONE) PO SCH ×2 (10:18→21:01)
[2018-08-20] MEDS: guaiFENesin ER 600 MG TAB PO SCH ×2 (10:19→21:00)
[2018-08-20] MEDS: LOSARTAN POTASSIUM 25 MG TABLET PO SCH (10:20)
[2018-08-20] MEDS: CARVEDILOL 6.25 MG TABLET (COREG) PO SCH ×2 (10:21→21:02)
--- NOTE | 2018-08-20 10:30 | NUR ---
rounds up and walk with p.t on the hallway and melissa well with walker. seen by dr titus. due meds given and melissa well.
[2018-08-20] MEDS: BALSAM PERU/CASTOR OIL 60 GM OINT...G. TP SCH (12:04)
--- NOTE | 2018-08-20 13:54 | NUR ---
WOUND EVALUATION: Late note for 1045 secondary to patient care. Wound Consult received from Dr. Marquez. Thank you, Dr. Marquez, for the consult. Patient received in a Darion Bed with an Atmos Air 900 mattress, awake, alert, and oriented. Patient is able to turn independently. Brock Score is a 17. Past Medical History: Diabetes, hypertension, left leg blood clot, dyslipidemia, and peripheral artery disease. Recent Labs: WBC 7.3, RBC 3.55, HGB 9.4, HCT 28.5, Platelets 328, Sodium 135, BUN 32, Creatinine 1.83, GFR 40, Glucose 155, Phosphorus 4.6, Albumin 2.8. Intrinsic factors that delay wound healing: Diabetes, hypertension, left leg blood clot, dyslipidemia, and peripheral artery disease. Extrinsic factors that delay wound healing: Decreased mobility. Microbiology: Sputum culture negative, MRSA negative, Blood culture x2 negative. Wound Assessment: 1. Left lateral foot: Wound, present on admission. Wound bed is 100% pink. No odor, no drainage. Whitney-wound yellow callous. Measures 0.7 cm x 0.9 cm. Recommend: Cleanse wound with normal saline. Pat dry. Place Suprep onto whitney-wound. Apply hydrogel to wound bed. Cover with foam dressing. Perform wound care daily, and as needed for dressing soiling or dislodgement. 2. Left medial calf: Linear incision secondary to arterial surgery, present on admission. 100% brown scab present. No odor, no drainage. Measures 7.0 cm x 0.2 cm. 3. Left medial thigh: Linear incision secondary to arterial surgery, present on admission. 100% brown scab present. No odor, no drainage. Measures 2.8 cm x 0.7 cm. Recommend: No dressing needed. Monitor site and inform WCN if sites opens. Also recommend: Assist and encourage patient to reposition every 2 hours with pillow support and off-load pressure areas with pillows for pressure re-distribution. Offload, elevate and float bilateral heels with pillows. Perform skin care and monitor skin integrity Q shift. Use moisture barrier cream on buttocks and other moisture susceptible areas QID and as needed for soiling.
--- NOTE | 2018-08-20 14:00 | NUR ---
rounds seen by dr robles and with order for /dc pending home health order. call light within reached. no sob noted.
--- NOTE | 2018-08-20 14:09 | NUR ---
Discharge Planning: DCP faxed pt referral to [facility] (f [phone] p [phone]) and [facility] (f [phone] p [phone]); DCP to follow up.
--- NOTE | 2018-08-20 15:00 | NUR ---
rounds pt will not be able to go home today as per ant serrat pending approval for a home health.
--- NOTE | 2018-08-20 16:26 | NUR ---
VERONICA PLANNING Per Archana MARTIN workforce planner the home health company that Tressa @ [facility] gave cannot accept pt. Called & spoke w Tressa @ [facility], ph [phone], states will fax over list of contracted SNF's, [facility]. Called & left msg w [facility], ph [phone], need list of contracted DME for fww. Updated veronica aMgaña workforce planner.
[2018-08-20] MEDS: guaiFENesin/DEXTROMETHORPHAN 10 ML UDC PO PRN ×2 (17:04→21:08)
[2018-08-20] MEDS: SIMVASTATIN 20 MG TABLET PO SCH (17:05)
--- NOTE | 2018-08-20 19:00 | NUR ---
closing notes pt in bed after dinner and resting comfortably. denies pain. bed in low position and side rails up and locked. call light within. continue to observe fluid restriction. no sob noted.
--- NOTE | 2018-08-20 19:25 | NUR ---
OPENING NOTE RECEIVED PT AND REPORT FROM DAY SHIFT. PT IS SITTING UP AWAKE IN BED. PT ABLE TO VERBALIZE NEEDS. PT ON 2L NASAL CANULA. IV INTACT AND PATENT. FALL AND SAFETY PRECAUTIONS IN PLACE. BED LOCKED IN LOWEST POSITION. PT REFUSES BED ALARM DESPITE EDUCATION. CALL LIGHT WITH PT. WILL CONTINUE TO MONITOR.
--- NOTE | 2018-08-20 21:00 | NUR ---
MEDICATION ADMINISTRATION/ BS BLOOD SUGAR OF 233, COVERAGE PER SLIDING SCALE. MEDICATION ADMINISTRATION PER ORDERS. PT RESTING IN BED.
--- NOTE | 2018-08-20 21:30 | NUR ---
ROUNDING NOTE EDUCATED PT ON FLUID RESTRICTION. PT VERBALIZED UNDERSTANDING. NO OTHER NEEDS. WILL CONTINUE TO MONITOR. CALL LIGHT WITH PT.
--- NOTE | 2018-08-20 23:50 | NUR ---
ROUNDING NOTE PT IS SLEEPING. NO S/S OF ACUTE DISTRESS. CALL LIGHT WITH PT. WILL CONTINUE TO MONITOR.
[2018-08-21 00:35] VITALS: BP_SYST 125
[2018-08-21] MEDS: ALBUTEROL SULFATE 0.083% 2.5 MG/3 ML VIAL.NEB INH SCH ×4 (00:37→20:21)
[2018-08-21] MEDS: IPRATROPIUM BROM 0.5 MG/2.5 ML VIAL.NEB (ATROVENT) INH SCH ×4 (00:38→20:20)
--- NOTE | 2018-08-21 01:50 | NUR ---
ROUNDING NOTE PT IS SLEEPING IN BED. NO S/S OF DISTRESS. BREATHING UNLABORED. CALL LIGHT WITH PT. WILL CONTINUE TO MONITOR.
--- NOTE | 2018-08-21 03:04 | NUR ---
ROUNDING NOTE PT IS ASLEEP AT THIS TIME. NO SIGNS OF ACUTE DISCOMFORT. CALL LIGHT WITH PT. WILL CONTINUE TO MONITOR.
[2018-08-21] MEDS: OMEPRAZOLE 20 MG CAPSULE.DR (PriLOSEC) PO SCH (06:31)
[2018-08-21] MEDS: FUROSEMIDE 40 MG TABLET PO SCH ×3 (06:33→21:39)
[2018-08-21] MEDS: INSULIN REGULAR, HUMAN 100 UNITS/ML, 10 ML VIAL (novoLIN R) SUBCUT PRN ×4 (06:36→21:47)
--- NOTE | 2018-08-21 06:40 | NUR ---
MEDICATION ADMINISTRATION/ BS BLOOD SUGAR READING OF 282, COVERAGE GIVEN PER SLIDING SCALE. WEIGHT TAKEN VIA BUILT IN BED SCALE. NO NEEDS AT THIS TIME. CALL LIGHT WITH PT.
--- NOTE | 2018-08-21 06:48 | NUR ---
CLOSING NOTE WILL ENDORSE CARE AND REPORT TO DAY SHIFT. PT IS RESTING IN BED. PT INSTABLE CONDITION. ALL NEEDS MET THROUGHOUT SHIFT. NO SIGNIFICANT CHANGES TO NOTES. CALL LIGHT WITH PT. WILL CONTINUE TO MONITOR.
[2018-08-21] MEDS: ACETYLCYSTEINE 20% 4 ML VIAL (RT) INH SCH ×3 (07:08→20:21)
--- NOTE | 2018-08-21 07:26 | NUR ---
AM ROUNDS: Report received from EVERT Yao for continuation of care. Patient is sleeping in bed. No signs or symptoms of distress noted.
[2018-08-21 07:37] LABS: CREATININE 1.63 mg/dL (0.55-1.30); POTASSIUM 3.2 mmol/L (3.5-5.1)
[2018-08-21 08:00] VITALS: BP_SYST 118
[2018-08-21] MEDS: PSYLLIUM HUSK 1 PKT PACKET PO SCH ×3 (08:24→20:48)
[2018-08-21] MEDS: CILOSTAZOL 50 MG TABLET (PLETAL) PO SCH ×2 (08:25→21:39)
[2018-08-21] MEDS: SPIRONOLACTONE 25 MG TABLET (ALDACTONE) PO SCH ×2 (08:25→20:46)
[2018-08-21] MEDS: CARVEDILOL 6.25 MG TABLET (COREG) PO SCH ×2 (08:26→20:47)
[2018-08-21] MEDS: LOSARTAN POTASSIUM 25 MG TABLET PO SCH (08:26)
[2018-08-21] MEDS: guaiFENesin ER 600 MG TAB PO SCH ×2 (08:27→20:46)
[2018-08-21] MEDS: MULTIVITAMINS TAB 1 TABLET PO SCH (08:27)
[2018-08-21] MEDS: ASPIRIN 81 MG TAB.CHEW PO SCH (08:27)
[2018-08-21] MEDS: ASCORBIC ACID 500 MG TABLET PO SCH (08:27)
[2018-08-21] MEDS: BALSAM PERU/CASTOR OIL 60 GM OINT...G. TP SCH (08:28)
[2018-08-21] MEDS: guaiFENesin/DEXTROMETHORPHAN 10 ML UDC PO PRN ×2 (08:31→17:21)
[2018-08-21] MEDS ORDERED: POTASSIUM CHLORIDE 20 MEQ TAB.PRT.SR PO ONE (09:45)
--- NOTE | 2018-08-21 10:39 | NUR ---
PATIENT RESTING: Patient resting quietly. No acute distress noted.
--- NOTE | 2018-08-21 12:05 | NUR ---
PATIENT RESTING: Patient resting quietly. No acute distress noted.
[2018-08-21 13:00] VITALS: BP_SYST 108
--- NOTE | 2018-08-21 14:26 | NUR ---
PATIENT RESTING: Patient resting quietly. No acute distress noted.
--- NOTE | 2018-08-21 14:28 | NUR ---
Nutrition F/U Admitting Diagnosis Pneumonia, pleural effusion Reviewed Pertinent Medical/Surgical Hx Medical Record Medical History Comment: PMH: DM, HTN, L leg blood clot, dyslipidemia, PAD per MD notes Pt also found w/ acute respiratory failure, leukocytosis, anasarca, acute CHF exacerbation, EUGENIA on CKD per MD notes 08/21/18 ID MD notes: L foot w/ infected ulcer Subjective Information Pt is likely meeting optimal nutritional needs. Current Diet Order/Nutrition Support Cardiac, CCHO, Fluid Restriction 1500 x7 days Patient/Significant Other Able To Verbalize Education Provided Not Indicated Pertinent Medications lasix, metamucil, SSI, zinc sulfate, MVI, VIT C Pertinent Labs Na 137 WNL (improved), BG 235 H, POC BG 282 H, BUN 29 H, CRE 1.63 H, ALB 2.8 L, BNP 1860 H, K 3.2 L Height (Feet) 5 feet Height (Inches) 5.00 inches Weight (Pounds) 161 pounds (08/14/18) NEW WT: 150 lb (08/21/18) Weight (Calculated Kilograms) 73.097553 kilograms Patient Weight 73.028 kg Body Mass Index 26.79 kg/m2 Usual Weight 147 lbs %UBW 110 %IBW 118 [place]/Adjusted Body Weight IBW: 136 lb, 62 kg Recent Weight Change Yes - possibly r/t fluid retention; +14 lb wt gain Weight Status Appropriate Gastrointestinal Symptoms None Last BM 08/20/18 Food Allergies No Usual Diet At Home Low sugar Skin Integrity Comment: Brock scale: 18; per Main Entree Cook And Cashier note 08/20/18: 1. Left lateral foot: Wound, present on admission. 2. Left medial calf: Linear incision secondary to arterial surgery, present on admission. 3. Left medial thigh: Linear incision secondary to arterial surgery, present on admission Current % PO 90% average x16 meals -- good Estimated Energy Expenditure (kcals/day) 8367-2401 kcal/day (25-30 kcal/kg CBW for maintenance) Estimated Protein Required (g/day) 44-58 gm/day (0.6-0.8 gm/kg CBW for CKD) Estimated Fluid Required (l/day) Per MD (CHF/CKD) Problem/Etiology/Signs/Symptoms Altered nutrition-related labs related to endocrine and renal dysfunction as evidenced by elevated BG, POC BG, BUN, and CRE lab values. *ongoing Expected Outcomes/Goals - Monitor appetite and PO intakes w/ goal of pt meeting at least 75% of estimated nutritional needs, labs trending WNL, normal GI function, and skin integrity/wt maintenance Dietitian Recommendations * Recommend continuing CCHO, cardiac diet, Fluid Restriction 1500 ml/day Follow Up Low Risk: F/U in 7 days
--- NOTE | 2018-08-21 14:39 | NUR ---
Dietitian Recommendations * Recommend continuing CCHO, cardiac diet, Fluid Restriction 1500 ml/day LP, RD Please refer to Nutrition F/U for details.
--- NOTE | 2018-08-21 15:20 | NUR ---
RT NOTES Pt. cont. to tolerate room air. Saturation 94% H.R 92 R.R 18. No signs of respiratory distress. Pt. denies SOB. EVERT Hassan made aware.
--- NOTE | 2018-08-21 15:21 | NUR ---
Discharge Planning: DCP faxed pt [facility] (F [phone] P [phone]): [facility] stated pt accepted , checking insurance. DCP to follow up.
--- NOTE | 2018-08-21 16:18 | NUR ---
DCP spoke to [facility] again still working on insurance authorization. DCP to continue to follow up.
[2018-08-21 16:30] VITALS: BP_SYST 112
[2018-08-21] MEDS: SIMVASTATIN 20 MG TABLET PO SCH (17:21)
--- NOTE | 2018-08-21 18:10 | NUR ---
CLOSING NOTE: All needs met. No change in assessment. Will endorse to NOC shift nurse.
--- NOTE | 2018-08-21 19:25 | NUR ---
CHANGE OF SHIFT: pt. awake, sitting up in chair, denies any discomfort at this time. instructed to call nurse when help needed and ayleen of call light and verbalized understanding.
[2018-08-21 20:00] VITALS: BP_SYST 120
[2018-08-21] MEDS: DOXYCYCLINE HYCLATE 100 MG CAPSULE PO SCH (20:45)
--- NOTE | 2018-08-21 21:30 | NUR ---
NOTES: due medications given. BS checked with sliding scale coverage. pt. needs attended.
[2018-08-22 00:03] VITALS: BP_SYST 128
--- NOTE | 2018-08-22 00:28 | NUR ---
NOTES: pt. sleeping when checked. no complaints manifested.
[2018-08-22] MEDS: ALBUTEROL SULFATE 0.083% 2.5 MG/3 ML VIAL.NEB INH SCH ×4 (01:34→20:06)
[2018-08-22] MEDS: IPRATROPIUM BROM 0.5 MG/2.5 ML VIAL.NEB (ATROVENT) INH SCH ×4 (01:35→20:06)
--- NOTE | 2018-08-22 03:18 | NUR ---
NOTES: continue to monitor, pt. sleeping when checked.
--- NOTE | 2018-08-22 05:44 | NUR ---
NOTES: condition unchanged. pt. needs attended. IV lock patent and flushed.
[2018-08-22] MEDS: FUROSEMIDE 40 MG TABLET PO SCH ×3 (06:43→21:50)
[2018-08-22 06:45] LABS: BASOPHILS % (AUTO) 0.5 % (0.0-2.0); EOSINOPHILS # (AUTO) 0.5 K/uL (0.0-0.4); EOSINOPHILS % (AUTO) 7.1 % (0.0-4.0); HEMATOCRIT 29.7 % (36-54); HEMOGLOBIN 9.5 g/dL (14.0-18.0); LYMPHOCYTES # (AUTO) 1.2 K/uL (1.0-5.5); MEAN CORPUSCULAR HEMOGLOBIN 27 pg (27-31); MEAN CORPUSCULAR HGB CONC 32 % (32-36); MEAN CORPUSCULAR VOLUME 83 fL (79.0-98.0); MONOCYTES # (AUTO) 0.9 K/uL (0.0-1.0); MONOCYTES % (AUTO) 11.6 % (1.7-9.3); NEUTROPHILS # (AUTO) 4.9 K/uL (1.8-7.7); NEUTROPHILS % (AUTO) 64.8 % (40.0-70.0); PLATELET COUNT (AUTO) 279 K/uL (130-430); RED BLOOD CELL COUNT(AUTO) 3.57 MIL/uL (4.2-6.2); RED CELL DISTRIBUTION WIDTH 12.7 % (9.0-15.0); WHITE BLOOD COUNT (AUTO) 7.5 K/uL (4.8-10.8)
[2018-08-22] MEDS: INSULIN REGULAR, HUMAN 100 UNITS/ML, 10 ML VIAL (novoLIN R) SUBCUT PRN ×4 (06:45→22:03)
[2018-08-22] MEDS: OMEPRAZOLE 20 MG CAPSULE.DR (PriLOSEC) PO SCH (06:48)
--- NOTE | 2018-08-22 06:54 | NUR ---
CLOSING NOTES; due meds given, BS 246 with sliding coverage given. IV lock intact. possible discharge with home health. reminded on fluid restriction. left leg dressing intact with foam dressing. call light within reach.
[2018-08-22 07:10] LABS: CREATININE 1.53 mg/dL (0.55-1.30); PHOSPHORUS 4.5 mg/dL (2.7-4.5); POTASSIUM 3.3 mmol/L (3.5-5.1)
[2018-08-22] MEDS: ACETYLCYSTEINE 20% 4 ML VIAL (RT) INH SCH ×3 (07:10→20:06)
--- NOTE | 2018-08-22 07:30 | NUR ---
endorsed pt. to incoming shift with nurse Grace.
[2018-08-22 08:00] VITALS: BP_SYST 121
--- NOTE | 2018-08-22 08:00 | NUR ---
RN OPENING NOTE PATIENT RESTING ON BED, ALERT ORIENTED X4, PATIENT WAS ASSESSED VITAL SIGNS ARE STABLE. PATIENT DENIES PAIN OR DISCOMFORT, BED AT LOW POSITION AND CALL LIGHT WITHIN REACH WILL CONTINUE TO MONITOR.
[2018-08-22] MEDS: CILOSTAZOL 50 MG TABLET (PLETAL) PO SCH ×2 (09:32→21:49)
[2018-08-22] MEDS: BALSAM PERU/CASTOR OIL 60 GM OINT...G. TP SCH (09:32)
[2018-08-22] MEDS: LOSARTAN POTASSIUM 25 MG TABLET PO SCH (09:33)
[2018-08-22] MEDS: ASPIRIN 81 MG TAB.CHEW PO SCH (09:33)
[2018-08-22] MEDS: ASCORBIC ACID 500 MG TABLET PO SCH (09:34)
[2018-08-22] MEDS: MULTIVITAMINS TAB 1 TABLET PO SCH (09:34)
[2018-08-22] MEDS: CARVEDILOL 6.25 MG TABLET (COREG) PO SCH ×2 (09:34→21:49)
[2018-08-22] MEDS: guaiFENesin ER 600 MG TAB PO SCH ×2 (09:34→21:48)
[2018-08-22] MEDS: DOXYCYCLINE HYCLATE 100 MG CAPSULE PO SCH ×2 (09:35→21:50)
[2018-08-22] MEDS: SPIRONOLACTONE 25 MG TABLET (ALDACTONE) PO SCH ×2 (09:35→21:50)
[2018-08-22] MEDS: PSYLLIUM HUSK 1 PKT PACKET PO SCH ×3 (09:35→21:46)
--- NOTE | 2018-08-22 10:00 | NUR ---
RN NOTE PATIENT RESTING ON BED, CHEST IS CLEAR FOR AUSCULTATION, PATIENT WAS GIVEN HIS MEDICATION ON TIME, PATIENT BED WAS MADE AND HIS URINAL WAS EMPTIED WILL CONTINUE TO MONITOR.
[2018-08-22 12:00] VITALS: BP_SYST 139
--- NOTE | 2018-08-22 12:00 | NUR ---
RN NOTE. PATIENT'S BLOOD SUGAR WAS MEASURED TO BE 243 MG/DL, PATIENT WAS GIVEN 4 UNITS OF REGULAR INSULIN PER THE SLIDING SCALE. PATIENT WAS EDUCATED ABOUT FALL PREVENTION AND CHF AND MANAGEMENT . VERBALIZED UNDERSTANDING, WILL CONTINUE TO MONITOR.
--- NOTE | 2018-08-22 14:00 | NUR ---
RN NOTE PATIENT RESTING ON BED, DENIES PAIN OR DISCOMFORT. PATIENT WAS GIVEN HIS MEDICATIONS ON TIME, PATIENT WILL BE DISCHARGED HOME, WILL ARRANGE FOR HIS APPOINTMENT WITH HIS PRIMARY CARE WELL HIS DAUGHTER IN LAW. THE EGG BREAKING MACHINE OPERATOR IS ARRANGING FOR HIS HOME HEALTH,
[2018-08-22] MEDS ORDERED: POTASSIUM CHLORIDE 20 MEQ TAB.PRT.SR PO ONE (14:30)
--- NOTE | 2018-08-22 15:45 | NUR ---
Discharge Planning: DCP spoke Tressa @ [facility] (p [phone]); Tressa received request and will process by 5:00pm today. DCP informed Elena at [facility] (f [phone] p [phone]).
[2018-08-22 16:00] VITALS: BP_SYST 125
--- NOTE | 2018-08-22 16:00 | NUR ---
RN NOTE PATIENT RESTING ON BED, DENIED PAIN OR DISCOMFORT. PATIENT VITAL SIGNS WERE MEASURE AND ARE STABLE. BRIM MOLDER AND DIRECTOR OF GIFT PLANNING WERE CONTACTED TO KNOW IF THE PATIENT WILL BE GOING HOME TODAY, SHE TOLD ME THAT STILL TRYING TO GET THE HOME HEALTH SET FOR THE PATIENT WITH HIS INSURANCE AND WILL INFORM ME ONCE SHE KNOWS. MEANWHILE AN APPOINTMENT WITH THE PATIENT'S PCP WAS MADE FOR AUGUST 28, SINCE THE PATIENT HAS A CHF. PATIENT WAS DOWNGRADED TO MED SURG AND WILL CONTINUE TO MONITOR.
[2018-08-22] MEDS: SIMVASTATIN 20 MG TABLET PO SCH (17:29)
--- NOTE | 2018-08-22 18:00 | NUR ---
RN CLOSING NOTE PATIENT RESTING ON BED, DENIES PAIN OR DISCOMFORT. PATIENT BLOOD SUGAR WAS MEASURED TO BE 165MG/DL, PATIENT GOT 2 UNITS REGULAR INSULIN PER THE SLIDING SCALE. PATIENT WILL NOT BE DISCHARGED TODAY, AND HE WAS INFORMED THAT DUE TO INSURANCE ISSUES HE WILL D/C HOME WITH HOME HEALTH IN AM. PATIENT WAS SERVED HIS DINNER AND DRESSING ON HIS LEG WERE CHANGED AND WILL ENDORSE TO NEXT SHIFT.
--- NOTE | 2018-08-22 19:20 | NUR ---
initial notes: received at bedside. pt is on bed. alert, awake, oriented x 4. no pain. not distress. stable. pt has occasional cough while im receiving report. pt has 2 dressing to his left leg-cdi. 2 iv lock to his right forearm. plan of care for tonight is discuss to pt. and he verbalized understanding. instructed about safety. call light in reach. side rails. lowest bed position. will follow-up.
[2018-08-22 19:46] VITALS: BP_SYST 122
--- NOTE | 2018-08-22 22:00 | NUR ---
notes: still awake o his bed. no pain. not distress. stable. needs attended. call light in reach. will monitor.
--- NOTE | 2018-08-23 | NUR ---
sleeping on his side. comfortable. stable. no sign of pain. no sob. call light in reach. will monitor.
[2018-08-23 00:53] VITALS: BP_SYST 118
[2018-08-23] MEDS: IPRATROPIUM BROM 0.5 MG/2.5 ML VIAL.NEB (ATROVENT) INH SCH ×3 (00:56→13:32)
[2018-08-23] MEDS: ALBUTEROL SULFATE 0.083% 2.5 MG/3 ML VIAL.NEB INH SCH ×3 (00:56→13:32)
--- NOTE | 2018-08-23 02:17 | NUR ---
sleeping, comfortable. no sob. no coughing. urinal is empty. scd on both legs. side rails up.lowest bed position. call light in reach. will follow-up.
--- NOTE | 2018-08-23 04:08 | NUR ---
notes: sleeping, comfortable. no sob. no coughing. not distress. no sign of pain. scd on both legs. side rails up.lowest bed position. call light in reach. will follow-up.
--- NOTE | 2018-08-23 06:10 | NUR ---
awake, alert. watching tv. no pain. stable. needs attended. call light in reach. will follow-up.
[2018-08-23] MEDS: OMEPRAZOLE 20 MG CAPSULE.DR (PriLOSEC) PO SCH (06:27)
[2018-08-23] MEDS: INSULIN REGULAR, HUMAN 100 UNITS/ML, 10 ML VIAL (novoLIN R) SUBCUT PRN ×2 (06:30→11:29)
[2018-08-23 06:38] LABS: BASOPHILS % (AUTO) 0.6 % (0.0-2.0); EOSINOPHILS # (AUTO) 0.5 K/uL (0.0-0.4); HEMOGLOBIN 9.4 g/dL (14.0-18.0); LYMPHOCYTES # (AUTO) 1.3 K/uL (1.0-5.5); MEAN CORPUSCULAR HGB CONC 32 % (32-36)
[2018-08-23 06:50] LABS: EOSINOPHILS % (AUTO) 7.1 % (0.0-4.0); HEMATOCRIT 29.1 % (36-54); MEAN CORPUSCULAR HEMOGLOBIN 27 pg (27-31); MEAN CORPUSCULAR VOLUME 83 fL (79.0-98.0); MONOCYTES # (AUTO) 0.8 K/uL (0.0-1.0); MONOCYTES % (AUTO) 11.1 % (1.7-9.3); NEUTROPHILS # (AUTO) 4.4 K/uL (1.8-7.7); NEUTROPHILS % (AUTO) 63.2 % (40.0-70.0); PLATELET COUNT (AUTO) 270 K/uL (130-430); RED BLOOD CELL COUNT(AUTO) 3.52 MIL/uL (4.2-6.2); RED CELL DISTRIBUTION WIDTH 12.6 % (9.0-15.0)
[2018-08-23 07:02] LABS: ALANINE AMINOTRANSFERASE 17 U/L (12-78); ALBUMIN 2.8 g/dL (3.4-4.8); ANION GAP 7 (5-15); ASPARTATE AMINOTRANSFERASE 12 U/L (10-37); CHLORIDE 99 mmol/L (98-107); CREATININE 1.54 mg/dL (0.55-1.30); GLUCOSE 189 mg/dL (70-99); PHOSPHORUS 4.2 mg/dL (2.7-4.5); POTASSIUM 3.5 mmol/L (3.5-5.1); SODIUM SERUM 134 mmol/L (136-145); TOTAL BILIRUBIN 0.6 mg/dL (0.0-1.0); UREA NITROGEN, BLOOD 27 mg/dL (8-21)
[2018-08-23 07:04] LABS: GFR AFRICAN AMERICAN 59 mL/min (>90)
[2018-08-23] MEDS: ACETYLCYSTEINE 20% 4 ML VIAL (RT) INH SCH ×2 (07:10→13:32)
[2018-08-23 07:22] LABS: C-REACTIVE PROTEIN QUANT < 0.2 mg/dL (0-0.5)
--- NOTE | 2018-08-23 07:35 | NUR ---
closing: pt is sitting on chair, having breathing treatment. stable. no pain. not distress. needs attended the whole shift. call light in reach. bedside report to am rn
--- NOTE | 2018-08-23 07:45 | NUR ---
INITIAL NOTE PT SITTING IN BEDSIDE CHAIR, AAOX4, NO S/S OF ACUTE DISTRESS, RECEIVING BREATHING TREATMENT, 2 IV SITE NOTED TO RFA, SALINE LOCKED. INCISION NOTED TO LEFT ANTERIOR LEG, DRY, HEALING, OPEN TO AIR. DRESSING NOTED TO LEFT FOOT, CDI AND DATED FOR 08/23/18. PLAN OF CARE DISCUSSED, SAFETY PRECAUTIONS IN PLACE, WILL FOLLOW UP
[2018-08-23 08:05] VITALS: BP_SYST 111
[2018-08-23 08:09] LABS: ERYTHROCYTE SEDIMENTATION RATE 36 MM/HR (0-15)
[2018-08-23] MEDS: DOXYCYCLINE HYCLATE 100 MG CAPSULE PO SCH (08:53)
[2018-08-23] MEDS: ASPIRIN 81 MG TAB.CHEW PO SCH (08:53)
[2018-08-23] MEDS: MULTIVITAMINS TAB 1 TABLET PO SCH (08:53)
[2018-08-23] MEDS: FUROSEMIDE 40 MG TABLET PO SCH (08:53)
[2018-08-23] MEDS: guaiFENesin ER 600 MG TAB PO SCH (08:53)
[2018-08-23] MEDS: PSYLLIUM HUSK 1 PKT PACKET PO SCH ×2 (08:53→15:14)
[2018-08-23] MEDS: ASCORBIC ACID 500 MG TABLET PO SCH (08:53)
[2018-08-23] MEDS: LOSARTAN POTASSIUM 25 MG TABLET PO SCH (08:54)
[2018-08-23] MEDS: CILOSTAZOL 50 MG TABLET (PLETAL) PO SCH (08:55)
[2018-08-23] MEDS: CARVEDILOL 6.25 MG TABLET (COREG) PO SCH (08:55)
[2018-08-23] MEDS: SPIRONOLACTONE 25 MG TABLET (ALDACTONE) PO SCH (08:55)
[2018-08-23] MEDS: BALSAM PERU/CASTOR OIL 60 GM OINT...G. TP SCH (09:01)
--- NOTE | 2018-08-23 09:45 | NUR ---
ROUNDS PT RETURNED TO BED, WATCHING SOMETHING ON HIS PHONE, NO S/S OF ACUTE DISTRESS, DENIES ANY NEEDS AT THIS TIME, WILL FOLLOWUP
--- NOTE | 2018-08-23 10:47 | NUR ---
Discharge Planning: DCP contacted [facility] (f [phone] p [phone]); left message for Tita Chha confirming FWW for pt and delivery time. VERONICAP to follow up. I communicated with CM. Addendum: 08/23/18 at 1514 by Archana Martin DP DCP spoke to DTR-IN-LAW/GEORGE FLOYD: [phone] to inform her pts FWW would be delivered tomorrow via FED EX. George was ok with taking pt home today with out walker. I informed the CM.
--- NOTE | 2018-08-23 11:00 | NUR ---
YAEL DC PLANNING: SPOKE WITH RN/SANTY REGARDING DC ORDER TO HOME TODAY WITH HH AND FWW. SANTY STATED SHE WOULD CALL TO DR. BUTLER TO OBTAIN PRIOR TO HIS VISIT FOR IN-Pt EVAL. 1104: YAEL SPOKE WITH DTR-IN-LAW/GWENDOLYN [facility]: [phone] IN RESPONSE TO VM IN CM OFFICE. YAEL UPDATED DC CANCELLED FOR 08/22/18 DUE TO UNABLE TO OBTAIN AUTH FOR FWW. PER GWENDOLYN, EITHER SHE OR HER WOULD BE ABLE TO PICK-UP Pt FOR DC HOME AROUND 1400. YAEL WILL NOTIFY GWENDOLYN WHEN KNOW STATUS OF DELIVERY OF FWW TO ASSIST WITH ARRANGEMENT OF DC PICK-UP BY FAMILY. GWENDOLYN INFORMED THAT HH WAS APPROVED WITH [facility] AND THEY WILL BE CONTACTING Pt/FAMILY WITH HOME VISIT DATE/TIME. 1115: YAEL SPOKE WITH DEPT/DAVID AT [facility]: [phone] TO OBTAIN INFO REGARDING DME. PER DAVID, IN-Pt YEIMI/[facility] HANDLES DC DME NEEDS. DAVID SPOKE WITH AD[facility] WHO STATED HE HAS NOT REC'd ANY ORDER REQUESTS FOR FWW FOR Pt. 1135: YAEL SPOKE WITH PATRICIA AT [facility]: [phone] TO DISCUSS PROCESS FOR COORDINATING DME REQUESTS. PER PATRICIA, DME ORDER IS SENT TO A VENDOR WHO OBTAINS AUTH FROM INSURANCE; &, IF NOT CONTRACTED WITH DME, THEN VENDOR CONTACTS PATRICIA WHO SENDS REFERRAL TO ANOTHER VENDOR. YAEL INFORMED PATRICIA THAT [facility] CM/DCP WILL FOLLOW-UP WITH [facility]ANCE [facility] TO OBTAIN AUTH FOR DME. PATRICIA STATED THAT [facility] DOES HAVE AUTHORIZATION TO PROVIDE HH FOR Pt AFTER DC. 1145: YAEL SPOKE WITH [facility] IN-Pt COORD/ADÁN AT EXT. 120. ADÁN STATED THAT [facility] PROVIDES DME AUTHs AND [facility] PROVIDES HH AUTHs. CM/DCP FAXED MD DIONNA ORDER FOR FWW TO ADÁN AT: [phone]. ADÁN STATED CM/DCP COULD EXPECT AUTH WITHIN NEXT 1-2 HOURS. CM/DCP DISCUSSED ABOVE AND WILL F/UP RE: DELIVERY TIME OF FWW TO HOSPITAL FOR Pt. Addendum: 08/23/18 at 1633 by Jaylyn Parry RN 1430: F/UP FROM [facility] WHO CONTACTED [facility] INPt COORD/AD[facility]N THAT AUTH FOR FWW WAS PROVIDED TO VENDOR: [employer] 1438: REC'd CALL FROM ELIJAH AT [facility] IN [place] WHO STATED THEY ARE NOT ABLE TO DELIVER THE FWW TO THE HOSPITAL TODAY, BUT, WILL FED-EX IT TO THE Pt's HOME FOR RECEIPT ON SAT, 08/24/18. REQUESTED F/UP BY AI/[facility] TO DETERMINE IF [facility] COORD/ADÁN WOULD BE ABLE TO OBTAIN DELIVERY OF FWW SOONER SO Pt CAN BE DC'd HOME TODAY.
--- NOTE | 2018-08-23 11:17 | NUR ---
ATTENDING MD DR LINDA BUTLER WAS PAGED AND CALLED RE: DISCHARGE ORDER. SPOKE TO
--- NOTE | 2018-08-23 11:30 | NUR ---
SPOKE WITH DR BUTLER FOR DC ORDER HOME WITH HH FOR FRONT WHEEL WALKER. ORDER PLACED WILL FOLLOW UP WITH CASE MANAGEMENT, PATIENT AND FAMILY
[2018-08-23] MEDS: guaiFENesin/DEXTROMETHORPHAN 10 ML UDC PO PRN (11:41)
--- NOTE | 2018-08-23 11:45 | NUR ---
BLOOD SUGAR 201/ [facility] PT COVERED PER SLIDING SCALE FOR INSULIN COVERAGE AND PROVIDED WITH [facility]. NO OTHER NEEDS, WILL FOLLOW UP
[2018-08-23 11:59] VITALS: BP_SYST 112
[2018-08-23 12:39] VITALS: BP_SYST 113
--- NOTE | 2018-08-23 13:13 | NUR ---
WOUND CARE/ DISCHARGE PICTURES TAKEN OF ALL WOUNDS
--- NOTE | 2018-08-23 15:30 | NUR ---
PT READY FOR DISCHARGE, TRANSITION OF CARE PROVIDED HIS SON IS ON THE WAY, WILL BE HERE IN 30 MIN, IV SITE DC'D, NO ACTIVE BLEEDING, CANULA REMOVED INTACT. DISCHARGE PAPERWORK REVIEWED AND SIGNED, PRESCRIPTIONS GIVEN, AWAITING SON
--- NOTE | 2018-08-23 15:58 | NUR ---
D/C Patient Patient given medication reconciliation form and D/C instructions. Exit Care provided. Patient verbalized understanding. MD discussed with patient the results and treatment provided. Ambulatory with steady gait for discharge to home, LEFT VIA WHEELCHAIR FOR CURB SIDE PICKUP WITH SON. Patient in stable condition, ID band removed. IV catheter removed, intact and dressing applied, no active bleeding. Rx of COZAR, COREG, ALDACTONE, LASIX, LEVAQUIN given. Patient educated on pain management. All belongings sent with patient.
--- NOTE | 2018-08-27 10:01 | NUR ---
Late Entry-Discharge Planning: DCP received call from George daughter in law of pt, walker did not get delivered. DCP called DME to inquire about the walker not being delivered. AI spoke to Mary at [facility] ([phone]) and she will check and get back to me. AI was told on return call Mary stated the walker was put on hold by Jaylyn on Sunday. VERONICAP stated to please process the order, AI lm for daughter in law walker should arrive Sunday.
--- NOTE | 2018-08-27 16:19 | NUR ---
Discharge Follow Up Phone Call RESEARCH SPECIALIST phoned patient's daughter in law, George [phone], who has been managing patient's care. George stated that they filled patient's prescriptions, but they do not have other medications listed on the continued list, specifically the albuterol and humulin. They have discussed with the Assisted home health nurse. RESEARCH SPECIALIST stated if it was especially concerning, they could go to the ED tonight, otherwise, patient has a follow up appointment with the PCP tomorrow, 08/28/18 at 13:00. RESEARCH SPECIALIST explained they should bring in all discharge paperwork and all patient's medications to review with PCP. They are using a blood glucose monitor but sugars are high. Home health nurse is aware. The FWW is due for delivery tomorrow. George requested a follow up call tomorrow afternoon to determine if the FWW was delivered. Addendum: 08/28/18 at 1648 by Leonora Portillo LCSW SHARON phone George and left a voicemail message requesting a call back to find out if medication issues were resolved and the FWW delivered. Social Service contact information was provided. [employer] Pressroom Worker will remain available upon request.
== END 2018-08-23 16:00 | disposition home health service (06) | DRG 720 ==
LOC: SED 10:50 → STU 18:17 → SMU 08-22 17:59
PROVIDERS: ADMIT Preventive Medicine Preventive Medicine/Occupational Environmental Medicine; ATTEND Preventive Medicine Preventive Medicine/Occupational Environmental Medicine
DX: A41.9 Sepsis, unspecified organism (principal); N17.0 Acute kidney failure with tubular necrosis; J96.00 Acute respiratory failure, unspecified whether with hypoxia or hypercapnia; J18.1 Lobar pneumonia, unspecified organism; I13.0 Hypertensive heart and chronic kidney disease with heart failure and stage 1 through stage 4 chronic kidney disease, or unspecified chronic kidney disease; A04.72 Enterocolitis due to Clostridium difficile, not specified as recurrent; E11.21 Type 2 diabetes mellitus with diabetic nephropathy; E11.40 Type 2 diabetes mellitus with diabetic neuropathy, unspecified; I50.9 Heart failure, unspecified; E83.39 Other disorders of phosphorus metabolism; I42.9 Cardiomyopathy, unspecified; J44.0 Chronic obstructive pulmonary disease with (acute) lower respiratory infection; E87.1 Hypo-osmolality and hyponatremia; E11.65 Type 2 diabetes mellitus with hyperglycemia; E87.6 Hypokalemia; N50.89 Other specified disorders of the male genital organs; D63.8 Anemia in other chronic diseases classified elsewhere; E11.22 Type 2 diabetes mellitus with diabetic chronic kidney disease; E11.51 Type 2 diabetes mellitus with diabetic peripheral angiopathy without gangrene; E78.5 Hyperlipidemia, unspecified; I25.10 Atherosclerotic heart disease of native coronary artery without angina pectoris; J44.1 Chronic obstructive pulmonary disease with (acute) exacerbation; N49.2 Inflammatory disorders of scrotum; D47.3 Essential (hemorrhagic) thrombocythemia; N18.3 Chronic kidney disease, stage 3 (moderate); E11.621 Type 2 diabetes mellitus with foot ulcer; L97.528 Non-pressure chronic ulcer of other part of left foot with other specified severity; R26.9 Unspecified abnormalities of gait and mobility; Z87.891 Personal history of nicotine dependence; Z95.828 Presence of other vascular implants and grafts; Z79.899 Other long term (current) drug therapy; Z79.82 Long term (current) use of aspirin
CPT/HCPCS: 36415; 36600; 71045; 71250-TC; 76700-TC; 76870-TC; 80048; 80053; 81000-TC; 82803-TC; 82962; 83605; 83735-TC; 83880; 84100-TC; 84484; 85025; 85651-TC; 86140; 87040-TC; 87070-TC; 87081; 87205-TC; 93005; 94640; 94760; 96365; 96367; 97110-GP; 97116-GP; 97530-GP; 99285; J0456; J0696; J1644; J1815; J1940; J1956; J2930; J7060; J7608; J7613; J7620